=== PATIENT | male | born 1970 | race Caucasian/White ===

== ENCOUNTER 2022-06-16 09:41 | Outpatient (REF) | payer MEDICAID, SELFPAY ==
--- NOTE | ~2022-06-16 | XR_ITS ---
EXAMINATION: XR CHEST CLINICAL INFORMATION: Cough and shortness of breath COMPARISON: None TECHNIQUE: 2 views of the chest were obtained. FINDINGS: The cardiac and mediastinal contours are normal. The lungs are clear. There is no pleural effusion or pneumothorax. Bony structures are unremarkable. XR/XR chest 2V IMPRESSION: Unremarkable examination.
== END 2022-06-16 09:42 | disposition home or self-care (01) ==
LOC: HO.XRAY 09:41
PROVIDERS: PCP Internal Medicine; Visit Provider Internal Medicine
DX: M79.89 Other specified soft tissue disorders (principal)
CPT/HCPCS: 71046

== ENCOUNTER 2024-08-15 10:24 | Outpatient (REF) | payer MEDICAID, SELFPAY ==
[2024-08-15 14:41] LABS: Anion Gap 11 (12-20); Blood Urea Nitrogen 12 mg/dL (9-16); Calcium 9.6 mg/dL (8.4-10.2); Carbon Dioxide 31 mmol/L (22-29); Chloride 97 mmol/L (96-108); Estimated Glomerular Filt Rate > 60; Glucose Random 213 mg/dL (60-115); Sodium 134 mmol/L (135-145)
== END 2024-08-15 10:25 | disposition home or self-care (01) ==
LOC: HO.CHCLDS 10:24
PROVIDERS: Visit Provider Internal Medicine
DX: E11.40 Type 2 diabetes mellitus with diabetic neuropathy, unspecified (principal); Z79.4 Long term (current) use of insulin
CPT/HCPCS: 36415; 80048

== ENCOUNTER 2024-08-27 10:12 | Outpatient (REF) | payer MEDICAID, SELFPAY ==
[2024-08-27 14:43] LABS: Alanine Aminotransferase 20 U/L (0-40); Albumin Level 3.4 g/dL (3.5-5.0); Alkaline Phosphatase 94 U/L (39-117); Anion Gap 8 (12-20); Aspartate Amino Transferase 37 U/L (5-37); Bilirubin Total 0.3 mg/dL (0.0-1.0); Blood Urea Nitrogen 12 mg/dL (9-16); Carbon Dioxide 32 mmol/L (22-29); Chloride 97 mmol/L (96-108); Estimated Glomerular Filt Rate > 60; Glucose Random 210 mg/dL (60-115); Sodium 132 mmol/L (135-145); Total Protein 8.2 g/dL (6.5-8.0)
--- OUTSIDE RECORDS SUMMARY | 2024-08-27 14:48 | XMS_ITS | Clinical Summary ---
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 (CMS/HCC) PROTEIN AND CREATININE WITH RATIO, URINE Routine 06/12/2024 10:43 AM EST Hepatocellular carcinoma (CMS/HCC) from Last 3 Months Results * (ABNORMAL) CBC auto differential (08/15/2024 1:24 PM EST) Only the most recent of10 resultswithin the time period is included. WBC 8.1 4.8 - 10.8 K/mcL LAB HEMETOLOGY METHOD 08/15/2024 1:53 PM [facility] RBC 5.10 4.50 - 5.50 M/mcL LAB HEMETOLOGY METHOD 08/15/2024 1:53 PM [facility] Hemoglobin 11.0(L) 13.5 - 17.5 g/dL LAB HEMETOLOGY METHOD 08/15/2024 1:53 PM [facility] Hematocrit 38.0(L) 42.0 - 54.0 % LAB HEMETOLOGY METHOD 08/15/2024 1:53 PM [facility] MCV 75.1(L) 79.0 - 98.0 FL LAB HEMETOLOGY METHOD 08/15/2024 1:53 PM [facility] MCH 21.7(L) 27.0 - 32.0 pcg LAB HEMETOLOGY METHOD 08/15/2024 1:53 PM [facility] MCHC 28.9(L) 32.0 - 37.0 g/dL LAB HEMETOLOGY METHOD 08/15/2024 1:53 PM [facility] RDW 17.1(H) 11.0 - 15.0 % LAB HEMETOLOGY METHOD 08/15/2024 1:53 PM [facility] Platelets 283 130 - 400 K/mcL LAB HEMETOLOGY METHOD 08/15/2024 1:53 PM [facility] MPV 9.7 7.0 - 11.0 FL LAB HEMETOLOGY METHOD 08/15/2024 1:53 PM [facility] NRBC 0.0 <1.0 % LAB HEMETOLOGY METHOD 08/15/2024 1:53 PM [facility] NRBC Absolute 0.00 <0.10 K/mcL LAB HEMETOLOGY METHOD 08/15/2024 1:53 PM [facility] Neutrophils Relative 67.9 % LAB HEMETOLOGY METHOD 08/15/2024 1:53 PM [facility] Lymphocytes Relative 13.7 % LAB HEMETOLOGY METHOD 08/15/2024 1:53 PM [facility] Monocytes Relative 12.0 % LAB HEMETOLOGY METHOD 08/15/2024 1:53 PM [facility] Eosinophils Relative 5.2 % LAB HEMETOLOGY METHOD 08/15/2024 1:53 PM [facility] Basophils Relative 0.6 % LAB HEMETOLOGY METHOD 08/15/2024 1:53 PM [facility] Immature Granulocytes Relative 0.6 % LAB HEMETOLOGY METHOD 08/15/2024 1:53 PM [facility] Neutrophils Absolute 5.49 1.50 - 7.00 K/mcL LAB HEMETOLOGY METHOD 08/15/2024 1:53 PM [facility] Lymphocytes Absolute 1.11 1.00 - 5.00 K/mcL LAB HEMETOLOGY METHOD 08/15/2024 1:53 PM [facility] Monocytes Absolute 0.97 0.20 - 1.00 K/mcL LAB HEMETOLOGY METHOD 08/15/2024 1:53 PM EST [facility] Eosinophils Absolute 0.42 0.00 - 0.50 K/[facility] LAB HEMETOLOGY METHOD 08/15/2024 1:53 PM EST [facility] Basophils Absolute 0.05 0.00 - 0.20 K/[facility] LAB HEMETOLOGY METHOD 08/15/2024 1:53 PM EST [facility] Immature Granulocytes Absolute 0.05(H) 0.00 - 0.03 K/[facility] LAB HEMETOLOGY METHOD 08/15/2024 1:53 PM EST [facility] Blood Blood sample taken from central line / Unknown Venipuncture / Unknown 08/15/2024 1:24 PM EST 08/15/2024 1:41 PM EST Subblake Goldstein MD LAB BLOOD O JATINDER Performing Organization Address City/[facility]/ZIP Co de Phone Number [facility] [address] [place] [address], [place] [phone] * (ABNORMAL) TSH (08/15/2024 1:24 PM EST) Only the most recent of3 resultswithin the time period is included. TSH 7.75(H) 0.40 - 4.00 mcIU/mL LAB CHEMISTRY METHOD 08/15/2024 2:19 PM EST [facility] Blood Blood sample taken from central line / Unknown Venipuncture / Unknown 08/15/2024 1:24 PM EST 08/15/2024 1:41 PM EST Subramyenni Goldstein MD LAB BLOOD O RDERAYVONNE [facility] [address] [place] [address], [place] [phone] * Thyroxine free (08/15/2024 1:24 PM EST) Only the most recent of2 resultswithin the time period is included. Free T4 0.86 0.70 - 1.80 ng/dL LAB CHEMISTRY METHOD 08/15/2024 2:18 PM [facility] Blood Blood sample taken from central line / Unknown Venipuncture / Unknown 08/15/2024 1:24 PM EST 08/15/2024 1:41 PM EST Adal Goldstein MD LAB BLOOD O RDERABLES [facility] [address] [place] [address], * (ABNORMAL) Comprehensive metabolic panel (08/15/2024 1:24 PM EST) Only the most recent of4 resultswithin the time period is included. Sodium 131(L) 133 - 145 mmol/L LAB CHEMISTRY METHOD 08/15/2024 2:21 PM [facility] Potassium 4.9 3.5 - 5.5 mmol/L LAB CHEMISTRY METHOD 08/15/2024 2:21 PM [facility] Chloride 96 96 - 110 mmol/L LAB CHEMISTRY METHOD 08/15/2024 2:21 PM [facility] CO2 32 21 - 32 mmol/L LAB CHEMISTRY METHOD 08/15/2024 2:21 PM [facility] Anion Gap 3 3 - 11 LAB CHEMISTRY METHOD 08/15/2024 2:21 PM [facility] Glucose 321(H) 70 - 100 mg/dL LAB CHEMISTRY METHOD 08/15/2024 2:21 PM [facility] BUN 13 5 - 25 mg/dL LAB CHEMISTRY METHOD 08/15/2024 2:21 PM [facility] Creatinine 0.71 0.70 - 1.30 mg/dL LAB CHEMISTRY METHOD 08/15/2024 2:21 PM [facility] eGFR 108 >=60 mL/min/1. 73m2 LAB CHEMISTRY METHOD 08/15/2024 2:21 PM [facility] Comment:Calculation based on the??Chronic Kidney Disease Epidemiology Collaboration (CKD-EPI) equation refit??without adjustment for race. BUN/Creatinine Ratio 18.3 LAB CHEMISTRY METHOD 08/15/2024 2:21 PM [facility] Calcium 8.7 8.5 - 10.5 mg/dL LAB CHEMISTRY METHOD 08/15/2024 2:21 PM [facility] AST (SGOT) 34 10 - 42 unit/L LAB CHEMISTRY METHOD 08/15/2024 2:21 PM [facility] ALT (SGPT) 36 10 - 60 unit/L LAB CHEMISTRY METHOD 08/15/2024 2:21 PM [facility] Alkaline Phosphatase 111 42 - 121 unit/L LAB CHEMISTRY METHOD 08/15/2024 2:21 PM [facility] Total Protein 7.1 6.0 - 8.0 g/dL LAB CHEMISTRY METHOD 08/15/2024 2:21 PM [facility] Albumin 2.7(L) 3.2 - 5.0 g/dL LAB CHEMISTRY METHOD 08/15/2024 2:21 PM [facility] Total Bilirubin 0.3 0.0 - 1.4 mg/dL LAB CHEMISTRY METHOD 08/15/2024 2:21 PM [facility] Blood Blood sample taken from central line / Unknown Venipuncture / Unknown 08/15/2024 1:24 PM EST 08/15/2024 1:41 PM EST Adal Goldstein MD LAB BLOOD O RDERABLES [facility] [address] [place] [address], * (ABNORMAL) POCT Glucose, blood (08/06/2024 11:08 AM EST) Only the most recent of36 resultswithin the time period is included. Glucose POCT 233(H) 70 - 100 mg/dL 08/06/2024 11:08 AM EST [facility] Blood Capillary blood specimen / Unknown 08/06/2024 11:08 AM EST 08/06/2024 11:10 AM EST Ruddy Carrero MD LAB POINT OF CA RE TEST DOCKED DEVICE UNSOLICITED RESULTS Performing Organization Address City/[facility]/ZIP Co de Phone Number [facility] [address] [place] [address], [place] [phone] * Lavender tube (08/06/2024 6:23 AM EST) Only the most recent of4 resultswithin the time period is included. Extra Tube Hold for add-ons. 08/06/2024 9:01 AM EST [facility] Comment:Auto resulted. Blood Venous blood specimen / Unknown Venipuncture / Unknown 08/06/2024 6:23 AM EST 08/06/2024 7:07 AM EST Ruddy Carrero MD LAB BLOOD ORDER ABDIEL [facility] [address] [place] [address], [place] [phone] * Magnesium (08/06/2024 6:23 AM EST) Only the most recent of6 resultswithin the time period is included. Magnesium 1.9 1.9 - 2.6 mg/dL LAB CHEMISTRY METHOD 08/06/2024 7:49 AM EST [facility] Blood Venous blood specimen / Unknown Venipuncture / Unknown 08/06/2024 6:23 AM EST 08/06/2024 7:04 AM EST Junior Billings MD LAB BLOOD ORDERABLES [facility] [address] [place] [address], * (ABNORMAL) Basic metabolic panel (08/06/2024 6:23 AM EST) Only the most recent of10 resultswithin the time period is included. Sodium 131(L) 133 - 145 mmol/L LAB CHEMISTRY METHOD 08/06/2024 7:49 AM [facility] Potassium 4.5 3.5 - 5.5 mmol/L LAB CHEMISTRY METHOD 08/06/2024 7:49 AM [facility] Chloride 93(L) 96 - 110 mmol/L LAB CHEMISTRY METHOD 08/06/2024 7:49 AM [facility] CO2 35(H) 21 - 32 mmol/L LAB CHEMISTRY METHOD 08/06/2024 7:49 AM [facility] Anion Gap 3 3 - 11 LAB CHEMISTRY METHOD 08/06/2024 7:49 AM [facility] Glucose 98 70 - 100 mg/dL LAB CHEMISTRY METHOD 08/06/2024 7:49 AM [facility] BUN 14 5 - 25 mg/dL LAB CHEMISTRY METHOD 08/06/2024 7:49 AM [facility] Creatinine 0.84 0.70 - 1.30 mg/dL LAB CHEMISTRY METHOD 08/06/2024 7:49 AM [facility] eGFR 103 >=60 mL/min/1. 73m2 LAB CHEMISTRY METHOD 08/06/2024 7:49 AM [facility] Comment:Calculation based on the??Chronic Kidney Disease Epidemiology Collaboration (CKD-EPI) equation refit??without adjustment for race. BUN/Creatinine Ratio 16.7 LAB CHEMISTRY METHOD 08/06/2024 7:49 AM [facility] Calcium 9.1 8.5 - 10.5 mg/dL LAB CHEMISTRY METHOD 08/06/2024 7:49 AM EST [facility] Blood Venous blood specimen / Unknown Venipuncture / Unknown 08/06/2024 6:23 AM EST 08/06/2024 7:04 AM EST Junior Billings MD LAB BLOOD ORDERABLES [facility] [address] [place] [address], * IR Repair CVAD w Subq Port or Pump (08/03/2024 6:18 PM EST) Anatomical Region Laterality Modality Interventional R adiology 08/03/2024 6:43 PM EST Narrative 08/03/2024 6:50 PM EST Attempted port revision Indication: Malpositioned right IJ port. ??Right IJ port is noted looped in the right neck. Fluoroscopic time: 15.1 minutes Informed written consent was obtained prior to the procedure. ??A aerial tram operator image of the right neck was obtained demonstrating redundant looping of the right IJ catheter. The right groin was prepped and draped in usual sterile fashion. ??Utilizing micropuncture technique access was obtained into the right common femoral vein. ??A wire was advanced centrally. ??A 6-Israeli sheath was then advanced over the wire. ??Utilizing combination of 0.035 wires including a Mullins and Amplatz wires and angled 5-Israeli Kumpe catheter and 5-Israeli Brandi catheter multiple times were made to loop the catheters over the redundancy of the tubing and pull it into the superior vena cava. ??This was unsuccessful. ??Therefore a gooseneck snare was then advanced and the tip of the catheter was secured. ??The distal redundant loop could not be fully reduced, despite multiple attempts. ??The tip of the catheter was positioned at the IJ subclavian junction likely in the very upper portion of the superior vena cava. The port was accessed and contrast injection demonstrates patency of the port although blood return was not noted. I then advanced the catheter back into the right IJ and additional contrast injection was performed demonstrating patency of the internal jugular vein. ??However the distal redundant loop appears to be extravascular. The sheath and catheters were removed and hemostasis was achieved. ??The port was flushed with heparinized saline and Deaccessed. Impression/plan: 1. ??Malpositioned right IJ port with distal loop redundancy likely extravascular. ??The tip remains intravascular and could be used if clinically necessary. 2. ??Ultimately, formal port resection and replacement is advised. ??This can be scheduled on an outpatient basis. 3. ??Right IJ and superior vena cava venogram 4. ??Mechanical snaring of an intravascular device with tip repositioning. -------- FINAL REPORT -------- Dictated By: Gerson Alvarez Dictated Date: 08/03/2024 18:43 ET Assigned Physician: Gerson Alvarez Reviewed and Electronically Signed By: Gerson Alvarez Signed Date: 08/03/2024 18:50 ET Workstation ID: [id number] Transcribed By: Self Edit Transcribed Date: 08/03/2024 18:43 ET Procedure Note Gerson Alvarez MD - 08/03/2024 Attempted port revision Indication: Malpositioned right IJ port. Right IJ port is noted looped inthe right neck. Fluoroscopic time: 15.1 minutes Informed written consent was obtained prior to the procedure. A scoutimage of the right neck was obtained demonstrating redundant looping ofthe right IJ catheter. The right groin was prepped and draped in usual sterile fashion.Utilizing micropuncture technique access was obtained into the rightcommon femoral vein. A wire was advanced centrally. A 6-Israeli sheathwas then advanced over the wire. Utilizing combination of 0.035 wiresincluding a Mullins and Amplatz wires and angled 5- Israeli Kumpe catheter and5-Israeli Brandi catheter multiple times were made to loop the cathetersover the redundancy of the tubing and pull it into the superior vena cava.This was unsuccessful. Therefore a gooseneck snare was then advanced andthe tip of the catheter was secured. The distal redundant loop could notbe fully reduced, despite multiple attempts. The tip of the catheter waspositioned at the IJ subclavian junction likely in the very upper portionof the superior vena cava. The port was accessed and contrast injection demonstrates patency of theport although blood return was not noted. I then advanced the catheter back into the right IJ and additionalcontrast injection was performed demonstrating patency of the internaljugular vein. However the distal redundant loop appears to beextravascular. The sheath and catheters were removed and hemostasis was achieved. Theport was flushed with heparinized saline and Deaccessed. Impression/plan: 1. Malpositioned right IJ port with distal loop redundancy likelyextravascular. The tip remains intravascular and could be used ifclinically necessary. 2. Ultimately, formal port resection and replacement is advised. Thiscan be scheduled on an outpatient basis. 3. Right IJ and superior vena cava venogram 4. Mechanical snaring of an intravascular device with tiprepositioning. -------- FINAL REPORT -------- Dictated By: Gerosn Alvarez Dictated Date: 08/03/2024 18:43 ET Assigned Physician: Gerson Alvarez Reviewed and Electronically Signed By: Gerson Alvarez Signed Date: 08/03/2024 18:50 ET Workstation ID: [id number] Transcribed By: Self Edit Transcribed Date: 08/03/2024 18:43 ET Gerson Alvarez MD IMG IR PROCEDURES * IR Asp Abscess/Hematoma/Bulla/Cyst (08/02/2024 10:24 AM EST) Anatomical Region Laterality Modality Body N/A Interventional R adiology 08/02/2024 10:2 8 AM EST Impressions 08/02/2024 10:[address]-guided aspiration of a suspected abscess in the upper aspect of the liver. ??Aspiration attempt yielded no return of any fluid or pus. ??This is therefore likely hepatic tumor given the underlying history of hepatocellular carcinoma. ??This is not indicative of abscess at this time. -------- FINAL REPORT -------- Dictated By: Gerson Alvarez Dictated Date: 08/02/2024 10:28 ET Assigned Physician: Gerson Alvarez Reviewed and Electronically Signed By: Gerson Alvarez Signed Date: 08/02/2024 10:35 ET Workstation ID: [id number] Transcribed By: Self Edit Transcribed Date: 08/02/2024 10:28 ET Narrative 08/02/2024 10:[address]-guided drainage INDICATION: Patient with metastatic disease to the liver with concern for development of hepatic abscess. Interventionalists: Dr. Gerson Alvarez Procedure: Informed consent was obtained prior to the procedure. Prior imaging studies were reviewed. The patient was placed in supine position on the imaging table with an overlying marking grid. An initial guiding scan was performed through the area of concern. After identifying the most appropriate access, the overlying skin was demarcated. The skin was then prepped and draped in the usual and sterile fashion. A timeout was performed as per institutional guidelines. Moderate sedation: Under direct physician supervision, the patient was moderately sedated with ??100 mcg FENTANYL and 2.0 mg VERSED IV for a total of 30 minutes. An independent interventional radiology nurse observer trained in conscious sedation provided continuous physiologic monitoring of the patient during the entirety of the procedure through recovery. 2% lidocaine was used for skin anesthesia. A small stab incision was made with an 11 blade scalpel. ??No styloid and 18-gauge needles were available for aspiration attempt. ??Therefore a micropuncture kit was utilized to access the area of concern under continuous CT fluoroscopic guidance. ??Advancement of the needle was challenging due to the firmness of the area in question. ??A mandrel wire was attempted to be coiled within any potential cavity, however the wire would not coil indicating positioning within solid liver/mass. ??Aspiration attempt yielded no return of any fluid or purulence. The catheter was secured to the skin with Steri-Strips and a sterile dressing was applied. The patient tolerated the procedure with no immediate complications. The patient was returned ultimately to their unit in unchanged condition. Imaging was utilized only to facilitate drainage, please see the separately dictated diagnostic study performed earlier for anatomic detail. Procedure Note Gerson Alvarez MD - 08/02/2024 CT-guided drainage INDICATION: Patient with metastatic disease to the liver with concern fordevelopment of hepatic abscess. Interventionalists: Dr. Gerson Alvarez Procedure: Informed consent was obtained prior to the procedure. Priorimaging studies were reviewed. The patient was placed in supine positionon the imaging table with an overlying marking grid. An initial guidingscan was performed through the area of concern. After identifying the mostappropriate access, the overlying skin was demarcated. The skin was thenprepped and draped in the usual and sterile fashion. A timeout was performed as per institutional guidelines. Moderate sedation: Under direct physician supervision, the patient wasmoderately sedated with 100 mcg FENTANYL and 2.0 mg VERSED IV for a totalof 30 minutes. An independent interventional radiology nurse observertrained in conscious sedation provided continuous physiologic monitoringof the patient during the entirety of the procedure through recovery. 2% lidocaine was used for skin anesthesia. A small stab incision was madewith an 11 blade scalpel. No styloid and 18-gauge needles were availablefor aspiration attempt. Therefore a micropuncture kit was utilized toaccess the area of concern under continuous CT fluoroscopic guidance.Advancement of the needle was challenging due to the firmness of the areain question. A mandrel wire was attempted to be coiled within anypotential cavity, however the wire would not coil indicating positioningwithin solid liver/mass. Aspiration attempt yielded no return of anyfluid or purulence. The catheter was secured to the skin with Steri-Strips and a steriledressing was applied. The patient tolerated the procedure with no immediate complications. Thepatient was returned ultimately to their unit in unchanged condition. Imaging was utilized only to facilitate drainage, please see theseparately dictated diagnostic study performed earlier for anatomicdetail. IMPRESSION: CT-guided aspiration of a suspected abscess in the upper aspect of theliver. Aspiration attempt yielded no return of any fluid or pus. This istherefore likely hepatic tumor given the underlying history ofhepatocellular carcinoma. This is not indicative of abscess at thistime. -------- FINAL REPORT -------- Dictated By: Gerson Alvarez Dictated Date: 08/02/2024 10:28 ET Assigned Physician: Gerson Alvarez Reviewed and Electronically Signed By: Gerson Alvarez Signed Date: 08/02/2024 10:35 ET Workstation ID: [id number] Transcribed By: Self Edit Transcribed Date: 08/02/2024 10:28 ET Ruddy CALLEG IR LEONARD ES * Phosphorus (08/02/2024 7:56 AM EST) Phosphorus 3.6 2.5 - 4.5 mg/dL LAB CHEMISTRY METHOD 08/02/2024 8:37 AM EST [facility] Blood Venous blood specimen / Unknown Venipuncture / Unknown 08/02/2024 7:56 AM EST 08/02/2024 8:02 AM EST Ruddy Carrero MD LAB BLOOD ORDER ABDIEL Performing Organization Address City/[facility]/ZIP Co de Phone Number [facility] [address] [place] [address], [place] [phone] * (ABNORMAL) Prothrombin time with INR (08/01/2024 4:46 PM EST) Protime 15.2(H) 10.6 - 13.9 sec LAB COAGULATION METHOD 08/01/2024 5:24 PM EST [facility] INR 1.2 LAB COAGULATION METHOD 08/01/2024 5:24 PM EST [facility] Blood Venous blood specimen / Unknown Venipuncture / Unknown 08/01/2024 4:46 PM EST 08/01/2024 5:05 PM EST Ruddy Carrero MD LAB BLOOD ORDER ABDIEL Performing Organization Address City/[facility]/ZIP Co de Phone Number [facility] [address] [place] [address], [place] [phone] * (ABNORMAL) Alpha fetoprotein tumor marker (07/31/2024 7:51 AM EST) AFP 862.8(H) 0.0 - 8.0 ng/mL LAB CHEMISTRY METHOD 08/01/2024 12:42 PM EST [facility] Blood Venous blood specimen / Unknown Venipuncture / Unknown 07/31/2024 7:51 AM EST 07/31/2024 7:59 AM EST Narrative [facility] - 08/01/2024 12:42 PM EST The Siemens Advia Centaur Chemiluminescent Immunoassay is used. Results obtained with different assay methods or kits cannot be used interchangeably. Results cannot be interpreted as absolute evidence of the presence or absence of malignant disease. Adal Goldstein MD LAB BLOOD O RDERABLES Performing Organization Address [facility]/ZIP Co de Phone Number [facility] [address] [place] [address], * B-type natriuretic peptide (07/31/2024 7:51 AM EST) BNP 89 <=100 pcg/mL LAB CHEMISTRY METHOD 07/31/2024 8:42 AM EST [facility] Blood Venous blood specimen / Unknown Venipuncture / Unknown 07/31/2024 7:51 AM EST 07/31/2024 7:59 AM EST Ruddy Carrero MD LAB BLOOD ORDER ABDIEL Performing Organization Address [facility]/ZIP Co de Phone Number [facility] [address] [place] [address], [place] [phone] * (ABNORMAL) TRANSTHORACIC ECHOCARDIOGRAM (TTE) COMPLETE W/ CONTRAST (07/30/2024 11:15 AM EST) Left Atrium Minor [place] 5.9 cm CV PACS Left Atrium Major [place] 6.0 cm CV PACS LA Area Sys (A2C) 20 cm2 CV PACS LA Area Sys (A4C) 22 cm2 CV PACS LA Volume (BP) 58 mL CV PACS RA Area 19.4 cm2 CV PACS RA 2D Volume 59 mL CV PACS Aortic Sinus Valsalva 3.7 cm CV PACS Ascending Aorta 3.1 cm CV PACS LVOT Diameter 2.3 cm CV PACS MV E' Tissue Velocity Lateral 13 cm/s CV PACS MV E' Tissue Velocity Septal 11 cm/s CV PACS LVOT Area 4.2 cm2 CV PACS MV Deceleration [place] 4.0 m/s2 CV PACS E Wave Deceleration Time 244(A) 119 - 242 ms CV PACS MV PHT 72 ms CV PACS MV Peak A Joe 0.62 m/s CV PACS MV Peak E Joe 0.96 m/s CV PACS MV Area PHT 3.1 cm2 CV PACS RV Diastolic Basal Dimension 3.1 2.5 - 4.1 cm CV PACS RV S' 12 cm/s CV PACS TAPSE 20 mm CV PACS E/E' Ratio Septal 9 CV PACS E/E' Ratio Averaged 8 CV PACS E/A Ratio 1.5 CV PACS E/E' Ratio Lateral 7 CV PACS LA Volume Index (BP) 16 mL/m2 CV PACS RA 2D Volume Index 16(A) 18 - 32 mL/m2 CV PACS Ascending Aorta Index 0.83 cm/m2 CV PACS Anatomical Region Laterality Modality Ultrasound Narrative 07/30/2024 12:06 PM EST ?Left ventricle was not well visualized. Wall thickness was not well visualized. Systolic function is normal with an ejection fraction of 60-65%. There is a septal bounce present with otherwise normal wall motion. There is no diastolic dysfunction. ?Right ventricle cavity is normal. Right ventricular systolic function is normal. ?The atria are normal in size. ?No hemodynamically significant valve disease. ?See remainder of the report for additional findings. Left Ventricle Left ventricle was not well visualized. Wall thickness was not well visualized. Systolic function is normal with an ejection fraction of 60-65%. There is a septal bounce present with otherwise normal wall motion. There is no diastolic dysfunction. Right Ventricle Right ventricle cavity appears normal. Systolic function is normal. Left Atrium Left atrium volume index is normal. Right Atrium Right atrium cavity is normal. IVC/SVC Inferior vena cava was not well visualized. Mitral Valve The leaflets are mildly thickened. There is trace regurgitation. There is no evidence of mitral valve stenosis. Tricuspid Valve The leaflets exhibit normal excursion. There is trace regurgitation. Cannot assess RVSP. Aortic Valve The aortic valve leaflets were not well visualized. The leaflets exhibit normal excursion. There is no regurgitation or stenosis. Pulmonic Valve The pulmonic valve was not well visualized. Normal function by Doppler assessment. Ascending Aorta The aorta appears normal in size. Pericardium Pericardium appears normal. Study Details Overall the study quality was technically difficult. Definity contrast was given to enhance imaging. Study was difficult due to: patient body habitus. Vitaliy Cantu MD CV ECHO PROCEDURES * XR Chest 2 Views (07/30/2024 8:44 AM EST) Only the most recent of2 resultswithin the time period is included. Anatomical Region Laterality Modality Body Radiographic Kera ging 07/30/2024 9:04 AM EST Impressions 07/30/2024 9:08 AM EST Impression: 1. Malpositioned right Port-A-Cath, similar to the previous study, but a change from the insertion procedure imaging from 12/05/23. 2. No active pulmonary process. Telerad PA ([id number]) -------- FINAL REPORT -------- Dictated By: Kimberley Becerra Dictated Date: 07/30/2024 09:04 ET Assigned Physician: Kimberley Becerra Reviewed and Electronically Signed By: Kimberley Becerra Signed Date: 07/30/2024 09:08 ET Workstation ID: [id number] Transcribed By: Self Edit Transcribed Date: 07/30/2024 09:04 ET Narrative 07/30/2024 9:08 AM EST History: Anasarca. Metastatic hepatocellular carcinoma. Comparison: 06/18/24 Findings: PA and lateral views. The cardiac silhouette remains borderline enlarged. Hilar contours and pulmonary vascularity are within normal limits. A Port-A-Cath is seen on the right, malpositioned, the catheter extending into the neck, presumably within the internal jugular vein, and looping back upon itself to terminate in the lower neck, similar to the previous chest radiograph. The lungs are clear. The costophrenic angle is are sharp. The regional skeleton appears intact. Procedure Note Kimberley Becerra MD - 07/30/2024 History: Anasarca. Metastatic hepatocellular carcinoma. Comparison: 06/18/24 Findings: PA and lateral views. The cardiac silhouette remains borderline enlarged.Hilar contours and pulmonary vascularity are within normal limits. A Port-A-Cath is seen on the right, malpositioned, the catheter extendinginto the neck, presumably within the internal jugular vein, and loopingback upon itself to terminate in the lower neck, similar to the previouschest radiograph. The lungs are clear. The costophrenic angle is are sharp. The regional skeleton appears intact. IMPRESSION: Impression: 1. Malpositioned right Port-A-Cath, similar to the previous study, but achange from the insertion procedure imaging from 12/05/23. 2. No active pulmonary process. Telerad PA ([id number]) -------- FINAL REPORT -------- Dictated By: Kimberley Becerra Dictated Date: 07/30/2024 09:04 ET Assigned Physician: Kimberley Becerra Reviewed and Electronically Signed By: Kimberley Becerra Signed Date: 07/30/2024 09:08 ET Workstation ID: [id number] Transcribed By: Self Edit Transcribed Date: 07/30/2024 09:04 ET Vitaliy Cantu MD IMG XR PROCEDURES * Vascular US duplex lower extremity venous bilateral (07/30/2024 8:35 AM EST) Anatomical Region Laterality Modality Vascular, Abdomen Ultrasound 07/30/2024 8:55 AM EST Impressions 07/30/2024 8:55 AM EST Impression: No evidence of deep vein thrombosis in the femoral-popliteal venous segments of both lower extremities. [id number] -------- FINAL REPORT -------- Dictated By: Kimberley Becerra Dictated Date: 07/30/2024 08:55 ET Assigned Physician: Kimberley Becerar Reviewed and Electronically Signed By: Kimberley Becerra Signed Date: 07/30/2024 08:55 ET Workstation ID: [id number] Transcribed By: Self Edit Transcribed Date: 07/30/2024 08:55 ET Narrative 07/30/2024 8:55 AM EST History: Bilateral lower extremity swelling. Findings: Duplex and color Doppler imaging of the deep venous system of both lower extremities was performed from the inguinal ligaments to the popliteal fossa. The common femoral, femoral and popliteal veins are patent and compress completely. Spontaneous and phasic venous flow is demonstrated with Doppler. There is normal flow augmentation with calf compression bilaterally. The deep calf veins, as visualized, are compressible. The venous waveforms are pulsatile, suggesting underlying right heart failure and/or tricuspid regurgitation. Procedure Note Kimberley Becerra MD - 07/30/2024 History: Bilateral lower extremity swelling. Findings: Duplex and color Doppler imaging of the deep venous system of both lowerextremities was performed from the inguinal ligaments to the poplitealfossa. The common femoral, femoral and popliteal veins are patent andcompress completely. Spontaneous and phasic venous flow is demonstratedwith Doppler. There is normal flow augmentation with calf compressionbilaterally. The deep calf veins, as visualized, are compressible. The venous waveforms are pulsatile, suggesting underlying right heartfailure and/or tricuspid regurgitation. IMPRESSION: Impression: No evidence of deep vein thrombosis in the femoral-popliteal venoussegments of both lower extremities. [id number] -------- FINAL REPORT -------- Dictated By: Kimberley Becerra Dictated Date: 07/30/2024 08:55 ET Assigned Physician: Kimberley Becerra Reviewed and Electronically Signed By: Kimberley Becerra Signed Date: 07/30/2024 08:55 ET Workstation ID: [id number] Transcribed By: Self Edit Transcribed Date: 07/30/2024 08:55 ET Vitaliy Cantu MD CV VASCULAR PROCEDUR ES * CT Abdomen Pelvis w Contrast (07/30/2024 3:53 AM EST) Only the most recent of2 resultswithin the time period is included. Anatomical Region Laterality Modality Body Computed Tomogra phy 07/30/2024 5:34 AM EST Addenda Addendum by Foreign Pickens MD on 07/30/2024 5:52 AM EST ADDENDUM: Receipt of this report by the clinical staff was confirmed with ARTURO Elliott on Jul 30, 2024 05:52:00 EST. This document has been electronically signed by: Yamilka Franco on 07/30/2024 05:52:59 Impressions 07/30/2024 5:34 AM EST Impression: There is an irregular low-density peripherally enhancing lesion within the hepatic dome most consistent with abscess. Malignancy less likely but possible. Anasarca and severe scrotal thickening. Diverticulosis without diverticulitis. This document has been electronically signed by: Foreign Pickens MD on 07/30/2024 05:34:55 Narrative 07/30/2024 5:[address] abdomen and pelvis with contrast Comparison: None Findings: No consolidation or effusion. There is a low-density liver mass near the hepatic dome, axial 37 and coronal 44, measuring up to 6.9 x 6.3 x 5.3 cm this exhibits somewhat irregular peripheral enhancement. No central gas. The gallbladder is surgically absent. The spleen, adrenal glands and pancreas are unremarkable. Kidneys demonstrate tiny low-density lesions, too small to characterize. The bladder is decompressed. No bowel obstruction. There is diverticulosis. Diffuse anasarca present. Severe scrotal edema/thickening. Procedure Note Foreign Pickens MD - 07/30/2024 CT abdomen and pelvis with contrast Comparison: None Findings: No consolidation or effusion. There is a low-density liver mass near the hepatic dome, axial 37 and coronal 44, measuring up to 6.9 x 6.3 x 5.3 cm this exhibits somewhat irregular peripheral enhancement. No central gas. The gallbladder is surgically absent. The spleen, adrenal glands and pancreas are unremarkable. Kidneys demonstrate tiny low-density lesions, too small to characterize. The bladder is decompressed. No bowel obstruction. There is diverticulosis. Diffuse anasarca present. Severe scrotal edema/thickening. IMPRESSION: Impression: There is an irregular low-density peripherally enhancing lesion withinthe hepatic dome most consistent with abscess. Malignancy less likely but possible. Anasarca and severe scrotal thickening. Diverticulosis without diverticulitis. This document has been electronically signed by: Foreign Pickens MD on 07/30/2024 05:34:55 Edwar RICH [facility] [place] [facility] PROCEDURES * Blood Culture, Peripheral #1 (07/30/2024 3:10 AM EST) Only the most recent of2 resultswithin the time period is included. Culture, Blood No growth at 5 days LAB MICROBIOLOGY METHOD 08/04/2024 6:01 AM EST [facility] Blood Venous blood specimen / Unknown Venipuncture / Unknown 07/30/2024 3:10 AM EST 07/30/2024 3:30 AM EST Edwar RICH LAB MICROBIOLOGY - G ENERAL ORDERABLES [facility] ([facility] [address] [place] [address], [place] [phone] * US Scrotum and Contents (07/29/2024 7:48 PM EST) Only the most recent of2 resultswithin the time period is included. Anatomical Region Laterality Modality Body Ultrasound 07/29/2024 8:10 PM EST Impressions 07/29/2024 8:10 PM EST Diffuse bilateral scrotal wall thickening and edema. Small bilateral hydroceles. Testicles and epididymis are within normal limits. This document has been electronically signed by: Kristie Turpin MD on 07/29/2024 20:10:05 Narrative 07/29/2024 8:10 PM EST US Scrotum with Doppler Comparison: None Findings: Right testicle normal size and echotexture, 4.5 x 2.9 x 2.8 cm. Left testicle normal size and echotexture, 4.0 x 3.1 x 2.5 cm. Normal color flow and arterial/venous spectral tracing of both testicles. Normal epididymides. No varicoceles. Small bilateral hydroceles. Diffuse bilateral scrotal wall thickening and edema. Procedure Note Kristie Turpin MD - 07/29/2024 US Scrotum with Doppler Comparison: None Findings: Right testicle normal size and echotexture, 4.5 x 2.9 x 2.8 cm. Left testicle normal size and echotexture, 4.0 x 3.1 x 2.5 cm. Normal color flow and arterial/venous spectral tracing of bothtesticles. Normal epididymides. No varicoceles. Small bilateral hydroceles. Diffuse bilateral scrotal wall thickening and edema. IMPRESSION: Diffuse bilateral scrotal wall thickening and edema. Small bilateral hydroceles. Testicles and epididymis are within normal limits. This document has been electronically signed by: Kristie Turpin MD on 07/29/2024 20:10:05 Vitaliy Cantu MD IMG US PROCEDURES * (ABNORMAL) Urinalysis with reflex microscopic and culture (07/29/2024 6:58 PM EST) Only the most recent of2 resultswithin the time period is included. Specific [place] Urine 1.027 1.003 - 1.030 LAB URINALYSIS - AUTOMATED METHOD 07/29/2024 8:05 PM [facility] pH, Urine 6.5 5.0 - 8.0 pH LAB URINALYSIS - AUTOMATED METHOD 07/29/2024 8:05 PM [facility] Leukocytes, Urine Negative Negative LAB URINALYSIS - AUTOMATED METHOD 07/29/2024 8:05 PM [facility] Nitrite, Urine Negative Negative LAB URINALYSIS - AUTOMATED METHOD 07/29/2024 8:05 PM [facility] Protein, Urine 100(A) <=Trace mg/dL LAB URINALYSIS - AUTOMATED METHOD 07/29/2024 8:05 PM [facility] Glucose, Urine Negative Negative mg/dL LAB URINALYSIS - AUTOMATED METHOD 07/29/2024 8:05 PM [facility] Ketones, Urine Negative Negative mg/dL LAB URINALYSIS - AUTOMATED METHOD 07/29/2024 8:05 PM [facility] Urobilinogen, Urine 1.0 0.2 - 1.0 mg/dL LAB URINALYSIS - AUTOMATED METHOD 07/29/2024 8:05 PM [facility] Bilirubin, Urine Negative Negative LAB URINALYSIS - AUTOMATED METHOD 07/29/2024 8:05 PM [facility] Blood, Urine Negative Negative LAB URINALYSIS - AUTOMATED METHOD 07/29/2024 8:05 PM [facility] RBC, Urine 7.2(H) 0 - 4 /HPF LAB URINALYSIS - AUTOMATED METHOD 07/29/2024 8:05 PM [facility] WBC, Urine 1.7 0 - 4 /HPF LAB URINALYSIS - AUTOMATED METHOD 07/29/2024 8:05 PM [facility] Squamous Epithelial, Urine 30 0 - 60 /LPF LAB URINALYSIS - AUTOMATED METHOD 07/29/2024 8:05 PM [facility] Bacteria, Urine Negative Negative /HPF LAB URINALYSIS - AUTOMATED METHOD 07/29/2024 8:05 PM [facility] Hyaline Casts, Urine 0.8 0 - 3 /LPF LAB URINALYSIS - AUTOMATED METHOD 07/29/2024 8:05 PM [facility] Urine Urine specimen obtained by clean catch procedure / Unknown Non-blood Collection / Unknown 07/29/2024 6:58 PM EST 07/29/2024 7:56 PM EST Vitaliy Cantu MD LAB URINE ORDERABLES [facility] [address] [place] [address], [place] [phone] * Quintana urine culture tube (07/29/2024 6:58 PM EST) Only the most recent of2 resultswithin the time period is included. Extra Tube Hold for add-ons. 07/29/2024 9:01 PM [facility] Comment:Auto resulted. Urine Urine specimen obtained by clean catch procedure / Unknown Non-blood Collection / Unknown 07/29/2024 6:58 PM EST 07/29/2024 7:55 PM EST Vitaliy Cantu MD LAB URINE ORDERABLES [facility] [address] [place] [address], [place] [phone] * (ABNORMAL) C-reactive protein (07/29/2024 6:53 PM EST) Only the most recent of2 resultswithin the time period is included. [facility] C-Reactive Protein 1.11(H) <=0.50 mg/dL LAB CHEMISTRY METHOD 07/31/2024 12:52 AM EST [facility] Blood Venous blood specimen / Unknown Venipuncture / Unknown 07/29/2024 6:53 PM EST 07/29/2024 7:58 PM EST Vitaliy Cantu MD LAB BLOOD ORDERABLES [facility] [address] [place] [address], [place] [phone] * (ABNORMAL) Hemoglobin A1c (07/29/2024 6:53 PM EST) [facility] Hemoglobin A1C 8.2(H) <6.5 % LAB CHEMISTRY METHOD 07/30/2024 8:34 AM EST [facility] Mean Bld Glu Estim. 189 mg/dL LAB CHEMISTRY METHOD 07/30/2024 8:34 AM [facility] Blood Venous blood specimen / Unknown Venipuncture / Unknown 07/29/2024 6:53 PM EST 07/29/2024 7:58 PM EST Vitaliy Cantu MD LAB BLOOD ORDERABLES [facility] [address] [place] [address], [place] [phone] * (ABNORMAL) Protein and creatinine with ratio, urine (07/24/2024 10:50 AM EST) Only the most recent of3 resultswithin the time period is included. [facility] Protein, Urine 171 mg/dL LAB CHEMISTRY METHOD 07/24/2024 11:35 AM [facility] Prot/Creat, Ur 1.43(H) <=0.20 mg/mg creat LAB CHEMISTRY METHOD 07/24/2024 11:35 AM EST [facility] Creatinine, Urine 120.0 mg/dL LAB CHEMISTRY METHOD 07/24/2024 11:35 AM EST [facility] Urine Urine specimen obtained by clean catch procedure / Unknown Non-blood Collection / Unknown 07/24/2024 10:50 AM EST 07/24/2024 11:10 AM EST Adal Goldstein MD LAB URINE O RDERABLES Performing Organization Address [facility]/ZIP Co de Phone Number [facility] [address] [place] [address], [place] [phone] * Vancomycin, trough (06/21/2024 10:32 PM EST) Only the most recent of2 resultswithin the time period is included. [facility] Vancomycin Trough 10.8 10.0 - 20.0 mcg/mL LAB CHEMISTRY METHOD 06/21/2024 11:15 PM EST [facility] Blood Venous blood specimen / Unknown Venipuncture / Unknown 06/21/2024 10:32 PM EST 06/21/2024 10:40 PM EST Devonte RICH LAB BLOOD ORDERABLES Performing Organization Address [facility]/ZIP Co de Phone Number [facility] [address] [place] [address], [place] [phone] * MRSA molecular study (06/20/2024 12:08 PM EST) [facility] MRSA Screen PCR Not Detected Not Detected LAB MICROBIOLOGY METHOD 06/20/2024 2:43 PM EST [facility] Swab Both anterior nares / Unknown Non-blood Collection / Unknown 06/20/2024 12:08 PM EST 06/20/2024 12:17 PM EST Bridgette Correa MD LAB MICROBIOLOGY - G ENERAL ORDERABLES Performing Organization Address City/[facility]/ZIP Co de Phone Number [facility] [address] [place] [address], [place] [phone] * Hepatitis C virus quantitative molecular study (06/20/2024 10:31 AM EST) [facility] HCV Qual Interp Not Detected Not Detected LAB MOLECULAR DIAGNOSTICS METHOD 06/21/2024 10:42 AM EST [facility] Blood Venous blood specimen / Unknown Venipuncture / Unknown 06/20/2024 10:31 AM EST 06/20/2024 10:37 AM EST Ryan Rivera MD LAB BLOOD ORDERABLES Performing Organization Address [facility] Co de Phone Number [facility] [address] [place] [address], [place] [phone] * Cryoglobulin (06/20/2024 10:31 AM EST) [facility] Cryoglobulin Absent Absent 06/29/2024 1:58 PM EST [facility] Comment: Test performed at [facility], [address] , [place], [place] ??[address] ? [phone] Airam Parker MD, PhD - [employer]ic Blood Venous blood specimen / Unknown Venipuncture / Unknown 06/20/2024 10:31 AM EST 06/20/2024 10:37 AM EST Ryan Rivera MD LAB BLOOD ORDERABLES Performing Organization Address City/[facility]/ZIP Co de Phone Number [facility] [address] [place] [address] * Procalcitonin (06/18/2024 10:03 AM EST) [facility] Procalcitonin <0.02 <=0.16 ng/mL LAB CHEMISTRY METHOD 06/19/2024 8:17 AM EST [facility] Blood Venous blood specimen / Unknown Venipuncture / Unknown 06/18/2024 10:03 AM EST 06/18/2024 10:15 AM EST Narrative [facility] - 06/19/2024 8:17 AM EST Procalcitonin > 2.00 ng/ml: Procalcitonin Levels above 2.00 ng/ml, on the first day of ICU admission represent a high risk for progression to severe sepsis and/or septic shock. Procalcitonin < 0.50 ng/ml: Procalcitonin levels below 0.50 ng/ml on the first day of ICU admission represent a low risk for progression to severe sepsis and/or septic shock. Concentrations <0.5 ng/mL do not exclude an infection, on account of local ized infections (without systemic signs) which can be associated with such low concentrations, or a systemic infection in its initial stages (<6 hours). Furthermore, increased procalcitonin can occur without infection. PCT concentrations between 0.5 and 2.0 ng/mL should be interpreted taking into account the patient's history. It is recommended to retest PCT within 6-24 hours if any concentrations <2.0 ng/mL are obtained. Carmenza Ram MD LAB BLOOD ORDERABLES [facility] [address] [place] [address], from Last 3 Months Advance Directives Documents on File Type Date Recorded Patient Wood Chopper Expl anation Health Care Decision (hx) 11/15/2023 AD PUENTE DIRECTIVE Health Care Decision (hx) 11/15/2023 AD PUENTE DIRECTIVE Health Care Decision (hx) 11/15/2023 AD PUENTE DIRECTIVE Health Care Decision (hx) 11/15/2023 AD PUENTE DIRECTIVE Health Care Decision (hx) 11/15/2023 AD PUENTE DIRECTIVE Health Care Decision (hx) 11/15/2023 AD PUENTE DIRECTIVE Health Care Decision (hx) 11/15/2023 AD PUENTE DIRECTIVE Health Care Decision (hx) 11/15/2023 AD PUENTE DIRECTIVE Health Care Decision (hx) 11/15/2023 AD PUENTE DIRECTIVE Health Care Decision (hx) 11/15/2023 AD PUENTE DIRECTIVE Health Care Decision (hx) 11/15/2023 AD PUENTE DIRECTIVE Health Care Decision (hx) 11/15/2023 AD PUENTE DIRECTIVE Health Care Decision (hx) 11/15/2023 AD PUENTE DIRECTIVE Health Care Decision (hx) 11/15/2023 AD PUENTE DIRECTIVE Health Care Decision (hx) 11/15/2023 AD PUENTE DIRECTIVE * Full Code - Default (Latest Code Status on File) Date Activated Date Inactivated Comments 07/30/2024 6:40 AM 08/06/2024 5:57 PM This is orde r is used when code status has not been discussed with the patient, or code status is otherwise unknown/unconfirmed To update the patient's code status, place a code status order. Do not modify or discontinue any currently active code status orders. * Full Code - Default Date Activated Date Inactivated Comments 06/18/2024 6:44 PM 06/22/2024 2:04 PM This is or ana is used when code status has not been discussed with the patient, or code status is otherwise unknown/unconfirmed To update the patient's code status, place a code status order. Do not modify or discontinue any currently active code status orders. Care Teams School Inspector Relationship Specialty Start Date End Date Oralia Palomino MD [address] [place] [address] PCP - General 11/23/23
--- OUTSIDE RECORDS SUMMARY | 2024-08-27 14:48 | XMS_ITS | Encounter Summary ---
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 For example, children's zoo caretaker or elderly care for an older adult? [...] file Not on file Not on file documented as of this encounter Last Filed Vital Signs Vital Sign Reading Time Taken Comments Blood Pressure 126/79 08/16/2024 1:13 PM EST Pulse 94 08/16/2024 1:13 PM EST Temperature 37.3 ??C (99.1 ??F) 08/16/2024 1:13 PM ES T Respiratory Rate - - Oxygen Saturation 99% 08/16/2024 1:13 PM EST Inhaled Oxygen Concentration - - Weight - - Height - - Body Mass Index - - documented in this encounter Functional Status Functional Status Response Date of Assess ment Are you deaf or do you have serious difficulty h earing? No 06/28/2024 Are you blind or do you have serious difficulty seeing, even when wearing glasses? No 06/28/2024 Do you have serious difficul ty walking or climbing stairs? No 06/28/2024 Do you have serious difficulty dressing or bathi ng? No 06/28/2024 Because of a physical, menta l, or emotional condition, do you have serious difficulty doing errands alone such as visiting the doctor? No 06/28/2024 Cognitive Status Response Date of Assessm ent Because of a physical, menta l, or emotional condition, do you have serious difficulty concentrating, remembering, or making decisions? (5 years old or older) No 06/28/2024 documented as of this encounter Medications at Time of Discharge Medication Sig Dispensed Refills Start Date End Date albuterol HFA (PROAIR HFA ; PROVENTIL HFA ; VENTOLIN HFA) 90 mcg/actuation inhaler Inhale 2 puffs by mouth every 6 (six) hours if needed for wheezing. aspirin 81 mg EC tablet Take 1 tablet (81 mg total) by mouth 1 (one) time each day. chlorhexidine (HIBICLENS) 4 % external liquid To apply to the affected area twice a day. Rinse thoroughly after 5 minutes. 08/15/2024 gabapentin (NEURONTIN) 400 mg capsule Take 1 capsule (400 mg total) by mouth 3 (three) times a day. 07/04/2024 insulin detemir (Levemir FlexPen) 100 unit/mL (3 mL) injection pen Infuse 4-6 Units into a venous catheter 1 (one) time each day. 07/19/2017 insulin lispro (HumaLOG KwikPen) 100 unit/mL injection pen 2-4 Units 3 (three) times a day before meals. 11/16/2023 levothyroxine (SYNTHROID, LEVOTHROID) 50 mcg tabletIndications:Hepa tocellular carcinoma (CMS/HCC) Take 1 tablet (50 mcg total) by mouth 1 (one) time each day before breakfast. 90 each 1 07/30/2024 01/26/2025 melatonin 3 mg tablet Take 2 tablets (6 mg total) by mouth at bedtime. nicotine (NICODERM CQ) 7 mg/[address] 1 patch on the skin 1 (one) time each day at the same time. senna (SENOKOT) 8.6 mg tablet Take 1 tablet (8.6 mg total) by mouth 2 (two) times a day if needed for constipation. 60 each 08/05/2024 09/04/2024 spironolactone (ALDACTONE) 50 mg tablet Take 1 tablet (50 mg total) by mouth 2 (two) times a day with meals. 60 each 08/05/2024 09/04/2024 triamcinolone (KENALOG) 0.1 % ointment Apply 1 Application topically 2 times daily. 07/03/2024 amoxicillin-clavulanat e (AUGMENTIN) 875-125 mg per tablet Take 1 tablet by mouth 2 times daily. 08/15/2024 08/25/2024 sulfamethoxazole-trime thoprim (BACTRIM DS,SEPTRA DS) 800-160 mg per tablet Take 1 tablet by mouth 2 times daily. 08/15/2024 08/22/2024 traMADoL (ULTRAM) 50 mg tablet Take 1 tablet (50 mg total) by mouth every 6 hours as needed. 08/15/2024 08/20/2024 documented as of this encounter Discharge Disposition Disposition Code Departure Means Destination Home or Self Care documented in this encounter Progress Notes * Joan Tubbs RN - 08/16/2024 1:00 PM EST Patient arrives ambulatory for his first Pembrolizumab. Patient was previously on zirabev and tecentriq. Patient states he kept having issues like scrotal cellulitis and also abscesses. Patient states he has an abscess earlier this week and states I popped it He tells this RN he has been having scrotal abscesses since he was 16 years old. Patient otherwise is complaint free. Patient denies n/v/d. He denies any issues urinating or having bowel movements. He has chronic diffuse body pain and takes tramadol with relief. He states I dont want anything stronger Patient given extensive education on Pembrolizumab. He is aware of side effects and s/s of allergicreaction. Patient is aware that it is a mab drug and works with his immune system. We talked about pneumonitis and colitis, etc and when to call us for any side effects he may have. Patient seemed understanding of education and asked great questions. Per MD ok for next appt to be on Tuesday, it will be 1 day early and ok per md. Patient finished treatment without incident. Port flushed and de-accessed per protocol. Next appt made and given. Patient left stable and ambulatory, instructed to call with any questions or concerns. documented in this encounter Plan of Treatment Upcoming Encounters Date Type Department Care Team (Late st Contact Info) Description 09/03/2024 9:15 AM EST Consult General Surgery - [place] [address] [facility] [address] [place] [phone] Mitchel Crisostomo, DO [address] [address] [facility] [address] [facility] [address] [place] [address] 09/04/2024 9:00 AM EST Appointment [facility] [address] 2nd [place] [phone] 09/05/2024 10:30 AM EST Office Visit [facility] Hematology Oncology [address] [place] [phone] Sruthi-Adal Ludwig MD [address] [place] [phone] 09/05/2024 11:00 AM EST Appointment 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 New Bag 08/16/2024 1:49 PM EST 200 mg 216 mL/hr documented in this encounter Orders Medications Ordered That Luis Alberto ht Not Have Been Administered Count Last Ordered Date First Ordered Date pembrolizumab (KEYTRUDA) 200 mg in sodium chloride 108 mL chemo IVPB 1 08/16/2024 documented in this encounter Care Teams Academic Services Professional Relationship Specialty Start Date End Date Oralia Palomino MD [address] [place], [place] PCP - General 11/23/23 documented as of this encounter
--- OUTSIDE RECORDS SUMMARY | 2024-08-27 14:48 | XMS_ITS | Encounter Summary ---
Author Organization [facility] Address [address] [place] [address] Care Team Providers Care Well Puller Head Name Role Phone Oralia Palomino MD Primary Care Provider [phone] [phone] Encounter Details Date Type Department Care Team (Late st Contact Info) Description 08/15/2024 Telephone [facility] Infusion Center [address] [facility] 2nd [place] [address] [facility] [place] Social History Tobacco Use Types Packs/Day Years [...] for your loved ones. For example, child welfare assistant or elderly care for an older adult? [...] on file documented as of this encounter Functional Status Functional Status Response [...] No 06/28/2024 documented as of this encounter Plan of Treatment Upcoming Encounters Date Type Department Care Team (Late st Contact Info) Description 09/03/2024 9:15 AM EST Consult General Surgery - [place] [address] [phone] Mitchel Crisostomo, DO [address] [address] 09/04/2024 9:00 AM EST Appointment [address] [address] 09/05/2024 10:30 AM EST Office Visit [facility] Hematology Oncology [address] [place] [phone] Adal Goldstein MD [address] [place] [address] 09/05/2024 11:00 AM EST Appointment [address] [address] 09/05/2024 2:00 PM EST Office Visit Infectious Disease - [place] [address] [phone] Bridgette Correa MD [address] [address] documented as of this encounter Visit Diagnoses Not on filedocumented in this encounter Care Teams Well Puller Head Relationship Specialty Start Date End Date Oralia Palomino MD [address] [place] [address] PCP - General 11/23/23 documented as of this encounter
--- OUTSIDE RECORDS SUMMARY | 2024-08-27 14:49 | XMS_ITS | Encounter Summary ---
Author Organization [employer] Address [address] [facility] 7t [place] [address] Care Team Providers Care Electrician Technician Name Role Phone Oralia Palomino MD Primary Care Provider [phone]- [phone] Reason for Visit * Reason Onset Date Comments Care Coordination 08/13/2024 C3 initial a ssessment/ enrollment Encounter Details Date Type Department Care Team ([facility] Contact Info) Description 08/13/2024 Telephone [facility] CHC MED & PEDS [address] [place] [address] Soumya Mcgrath RN [address] [place], [place] Care Coordination ([facility] initial assessment/ enrollment) Social History Tobacco Use Types Packs/Day Years Used Date Smoking Tobacco: Every Day Cigarettes 1 40 Started: 07/1983; Last attempted to quit: 07/2023 Passive Smoke Exposure: Past Smokeless Tobacco: Former Quit: 07/2023 Comments:Had recently picked up smoking again. Has not smoked today. Depression Answer Date Recorded Patient Health Questionnaire-9 Score 0 07/28/2022 Housing Stability Answer Date Recorded What is your housing situation today? I have housing today, but I am worried about losing housing in the future 08/24/[address] you li ve. Do you have problems with any of the following? None of the above 08/24/2023 Food Insecurity Answer Date Recorded Within the past 12 months, y ou worried that your food would run out before you got money to buy more: Sometimes True 2023 Within the past 12 months,th e food you bought just didn't last and you didn't have enough money to get more: Sometimes True 08/24/2023 Transportation Answer Date Recorded In the past 12 months, has l ack of transportation kept you from medical appts, meetings, work or from getting things needed for daily living? No 08/24/2023 Utilities Answer Date Recorded In the past 12 months, has t he electric, gas, oil or water company threatened to shut off services in your home? No 08/24/2023 Depression Answer Date Recorded Patient Health Questionnaire-2 Score 0 07/28/2022 Sex and Gender Information Value Date Recorded Sex Assigned at Male 05/31/2022 10:16 AM EDT Legal Sex Male 10:16 AM EDT Gender Identity Male 07/28/2022 9:17 AM EST Sexual Orientation Straight 02/03/2023 1: 44 PM EDT documented as of this encounter Miscellaneous Notes * Telephone Encounter - Soumya Mcgrath RN - 08/13/2024 11:31 AM EST JAMES Mcgrath RN placed outbound call to patient for agreed upon time for initial assessment for enrollment into Adult Care Management Program. Patient's name, , and address were verified. Pt is a 54 year old male with medical history significant for Type 2 DM, diabetic neuropathy, essentialhypertension. JAMES spoke with pt who states he has an upcoming appt with oncology and PCP on 08/15/24. Pt states he has a form of transportation to his appts and is currently working. Pt states he has enough food to last him for a month and is up to date with his rent and utilities. Pt states he is sometimes compliance with diabetic diet and walks as a form of exercise. Pt states he checks his BP and BG at home and reading has been within normal range. Pt c/o peripheral neuropathy and states he is on Gabapentin for the pain with somewhat effect. Pt states he will discuss further with PCP for pain management during upcoming PCP appt. Pt reports he feels safe in his home and states he smokes 1/2 pack of cigarette in a day. Pt denies smoking or taking any illegal drugs. Pt c/o anxiety and depression. Pt states he doesn't see a therapist or psychiatrist. CM has referred pt to N. Pt denies SI/ HI. CM informed pt of the number for crisis and encourage to call when needed. According to pt, he hasn't seen a dentist or event specialist food demonstrator over a yea. JAMES was able to assist pt to schedule an appt with [facility] eye clinic for 12/05/24 at 2pm. Pt is aware of appt date and time. Pt declined when offered to reschedule missed appt with the dentist. Per pt, he will reach out to his friend to find out whichdentist he sees and will call their office to schedule an appt. t states his sister is his HCP and is aware of his medical wishes. Pt states he is compliant with all his medications and denies any side effect. Care management program explained and contact information given. Patient verbalizes understanding, and able to repeat back to jingle writer. A follow up call will be placed within 10 days, patient agrees with plan. JAMES Mcgrath RN, provided notification to PCP Dr. Palomino of patient's enrollment into C3 Complex Care Program. JAMES Mcgrath RN, completed care plan and sent to HIM to be scanned into the medical record. PCP notified and awaiting review from provider. * Telephone Encounter - Soumya Mcgrath RN - 08/13/2024 10:16 AM EST Pt is requesting for [facility] referral for depression and anxiety documented in this encounter Plan of Treatment Upcoming Encounters Date Type Department Care Team (Late st Contact Info) Description 09/26/2024 11:15 AM EST Office Visit [facility] CHC MED & PEDS [address] [place] [address] Oralia Palomino MD [address] [place] [address] 12/05/2024 2:00 PM EDT Office Visit [facility] OPTOMETRY [address] [place] [address] Gretchen Mendosa, OD [address] [place] [address] documented as of this encounter Visit Diagnoses Not on filedocumented in this encounter Additional Health Concerns Assessment Noted Time PHQ-9 Depression Total Score: 0 07/28/20 22 9:44 AM EST documented as of this encounter Care Teams Electrician Technician Relationship Specialty Start Date End Date Oralia Palomino MD [address] [place] [id number] PCP - General Internal Medicine 10/04/18 documented as of this encounter
--- OUTSIDE RECORDS SUMMARY | 2024-08-27 14:49 | XMS_ITS | Encounter Summary ---
Author Organization [employer] Address [address] [facility] 7t [place] [address] Care Team Providers Care Communication Coordinator Name Role Phone Oralia Palomino MD Primary Care Provider Encounter Details Date Type Department Care Team ([facility] st Contact Info) Description 08/23/2024 Orders Only [facility] CHC MED & PEDS [address] [place], [place] [phone] Oralia Palomino MD [address] [place], [place] [phone] Essential hypertension (Primary Dx); Hyponatremia Social History Tobacco Use Types Packs/Day Years [...] PM EDT documented as of this encounter Plan of Treatment Upcoming Encounters Date Type Department Care Team (Late st Contact Info) Description 09/26/2024 11:15 AM EST Office Visit [facility] CHC MED & PEDS [address] [place] [address] Oralia Palomino MD [address] [place] [address] 12/05/2024 2:00 PM EDT Office Visit [facility] OPTOMETRY [address] [place] [address] Deondre, Gretchen, OD [address] [place] [address] Scheduled Orders Name Type Priority Associated Diagnoses Orde r Schedule Basic Metabolic Panel Lab Routine Essential hypertension Hyponatremia Expected: 08/23/2024 (Approximate), Expires: 08/23/2025 documented as of this encounter Visit Diagnoses Diagnosis Essential hypertension- Primary Unspecified essential hypertension Hyponatremia Hyposmolality and/or hyponatremia documented in this encounter Additional Health Concerns Assessment Noted Time PHQ-9 Depression Total Score: 0 07/28/20 9:44 AM EST documented as of this encounter Care Teams Communication Coordinator Relationship Specialty Start Date End Date Oralia Palomino MD [address] [place] [address] PCP - General Internal Medicine 10/04/18 documented as of this encounter
--- OUTSIDE RECORDS SUMMARY | 2024-08-27 14:49 | XMS_ITS | Encounter Summary ---
Author Organization [employer] Address [address] [facility] [address] 7t [place] [address] Care Team Providers Care Assembler Faucets Name Role Phone Oralia Palomino MD Primary Care Provider [phone]- [phone] Encounter Details Date Type Department Care Team (Late st Contact Info) Description 07/30/2024 Orders Only [facility] CHC MED & PEDS [address] [place] [address] Provider, MD Zachery Social History Tobacco Use Types Packs/Day Years [...] Description 09/26/2024 11:15 AM EST Office Visit [facility] CHC MED & PEDS [address] [place], [place] [phone] Oralia Palomino MD [address] [place], [place] [phone] 12/05/2024 2:00 PM EDT Office Visit [facility] OPTOMETRY [address] [place], [place] [phone] Deondre, Gretchen, OD [address] [place] [address] documented as of this encounter Procedures Procedure Name Priority Date/Time Associated Diagnosis Comments TRANSTHORACIC ECHO (TTE) COMPLETE Routine 07/30/2024 2:[address] ABDOMEN PELVIS W CONTRAST Routine 07/30/2024 10:[address] ABDOMEN PELVIS W CONTRAST Routine 07/30/2024 10:21 AM EST documented in this encounter Results * Transthoracic echo (TTE) complete (07/30/2024 2:20 PM EST) Historical Provider CV ECHO PROCEDURES Final Result * CT Abdomen Pelvis w/ Contrast (07/30/2024 10:24 AM EST) Anatomical Region Laterality Modality Body, Pelvis, Abdomen Computed T omography Historical Provider MD REED CT PROCEDURES Final R esult * CT Abdomen Pelvis w/ Contrast (07/30/2024 10:21 AM EST) Anatomical Region Laterality Modality Body, Pelvis, Abdomen Computed T omography Historical Provider MD REED CT PROCEDURES Final R esult documented in this encounter Visit Diagnoses Not on filedocumented in this encounter Additional Health Concerns Assessment Noted Time PHQ-9 Depression Total Score: 0 07/28/20 22 9:44 AM EST documented as of this encounter Care Teams Assembler Faucets Relationship Specialty Start Date End Date Oralia Palomino MD [address] [place] [address] PCP - General Internal Medicine 10/04/18 documented as of this encounter
--- OUTSIDE RECORDS SUMMARY | 2024-08-27 14:49 | XMS_ITS | Encounter Summary ---
Author Organization [employer] Address [address] [facility] 7t [place] [address] Care Team Providers Care Electrical/Instrument Technician Name Role Phone Oralia Palomino MD Primary Care Provider [phone]- [phone] Reason for Visit * Reason Comments Care Coordination Outreach Encounter Details Date Type Department Care Team (Latest Contact Info) Description 08/10/2024 Patient Outreach [facility] CHC MED & PEDS [address] [place], [place] [phone] Oralia Palomino MD [address] [place] [address] Care Coordination (Outreach) Social History Tobacco Use Types Packs/Day Years [...] PM EDT documented as of this encounter Progress Notes * Maria M Hendricks - 08/10/2024 3:02 PM EST CHW Maria M Hendricks placed outbound call to patient. No answer at this time. LVM introducing herself from [facility] CM Department, reminding patient of initial assessment appt via telephone on 08/13/24 @ 10:00 AM with Adult Complex Care program services. Requested call back to , as well as for any additional questions or concerns. documented in this encounter Plan of Treatment Upcoming Encounters Date Type Department Care Team (Late st Contact Info) Description 09/26/2024 11:15 AM EST Office Visit [facility] CHC MED & PEDS [address] [place] [address] Oralia Palomino MD [address] [place] [address] 12/05/2024 2:00 PM EDT Office Visit [facility] OPTOMETRY [address] [place] [address] Gretchen Mendosa, OD [address] [place] [address] documented as of this encounter Visit Diagnoses Not on filedocumented in this encounter Additional Health Concerns Assessment Noted Time PHQ-9 Depression Total Score: 0 07/28/20 9:44 AM EST documented as of this encounter Care Teams Electrical/Instrument Technician Relationship Specialty Start Date End Date Oralia Palomino MD [address] [place] [address] PCP - General Internal Medicine 10/04/18 documented as of this encounter
--- OUTSIDE RECORDS SUMMARY | 2024-08-27 14:49 | XMS_ITS | Encounter Summary ---
Author Organization [employer] Address [address] [facility] [address] 7[address] [place] [address] Care Team Providers Care Display Fabricator Name Role Phone Oralia Palomino MD Primary Care Provider [phone] [phone] Encounter Details Date Type Department Care Team (Latest Contact Info) Description 08/13/2024 Travel Social History Tobacco Use Types Packs/Day Years [...] Description 09/26/2024 11:15 AM EST Office Visit [facility] CHC MED & PEDS [address] [place] [address] Oralia Palomino MD [address] [place] [address] 12/05/2024 2:00 PM EDT Office Visit [facility] OPTOMETRY [address] [place] [address] Deondre, Gretchen, OD [address] [place] [address] documented as of this encounter Visit Diagnoses Not on filedocumented in this encounter Additional Health Concerns Assessment Noted Time PHQ-9 Depression Total Score: 0 07/28/20 22 9:44 AM EST documented as of this encounter Care Teams Display Fabricator Relationship Specialty Start Date End Date Oralia Palomino MD [address] [place] [address] PCP - General Internal Medicine 10/04/18 documented as of this encounter
--- OUTSIDE RECORDS SUMMARY | 2024-08-27 14:49 | XMS_ITS | Encounter Summary ---
Author Organization [employer] Address [address] [facility] 7t [place] [address] Care Team Providers Care Racing Secretary And Handicapper Name Role Phone Oralia Palomino MD Primary Care Provider Reason for Visit * Reason Onset Date Comments Chart Prep 08/14/2024 Encounter Details Date Type Department Care Team ([facility] st Contact Info) Description 08/14/2024 Telephone [facility] MED & PEDS [address] [place] [address] Oralia Palomino MD [address] [place] [address] Chart Prep Social History Tobacco Use Types Packs/Day Years [...] encounter Miscellaneous Notes * Telephone Encounter - Ruby Bowling MA - 08/14/2024 1:25 PM EST Chart Prep Labs: done Images: done Vaccines due: yes Referrals: complete Screenings: colonoscopy , eye exam , Foot Exam, STI screening Overdue care gaps: A1C, Glucose, Sbirt documented in this encounter Plan of Treatment Upcoming Encounters Date Type Department Care Team (Late st Contact Info) Description 09/26/2024 11:15 AM EST Office Visit [facility] MED & PEDS [address] [place] [address] Oralia Palomino MD [address] [place] [address] 12/05/2024 2:00 PM EDT Office Visit [facility] OPTOMETRY [address] [place] [address] Deondre, Gretchen, OD [address] [place] [address] documented as of this encounter Visit Diagnoses Not on filedocumented in this encounter Additional Health Concerns Assessment Noted Time PHQ-9 Depression Total Score: 0 07/28/20 9:44 AM EST documented as of this encounter Care Teams Racing Secretary And Handicapper Relationship Specialty Start Date End Date Oralia Palomino MD [address] [place] [address] PCP - General Internal Medicine 10/04/18 documented as of this encounter
--- OUTSIDE RECORDS SUMMARY | 2024-08-27 14:49 | XMS_ITS | Encounter Summary ---
Author Organization [employer] Address [address] [facility] 7t [place] [address] Care Team Providers Care Manager Hotel Name Role Phone Oralia Palomino MD Primary Care Provider Encounter Details Date Type Department Care Team ([facility] st Contact Info) Description 08/16/2024 Telephone [facility] MED & PEDS [address] [place] [address] Oralia Palomino MD [address] [place] [address] Social History Tobacco Use Types Packs/Day Years [...] as of this encounter Miscellaneous Notes * Addendum Note - Stephanie Larsen RN - 08/23/2024 9:41 AM ESTAddended by: STEPHANIE LARSEN on: 08/23/2024 09:41 AM Modules accepted: Orders * Telephone Encounter - Da Grimes RN - 08/17/2024 4:11 PM EST TC placed, spoke with pt, inform of message below from PCP. Pt verbalized understanding and agreed to plan. Please place the repeat sodium blood test, thanks. * Telephone Encounter - Da Grimes RN - 08/17/2024 2:40 PM EST TC placed x2, no answer, LVM to RTC. Sending back to [facility] in-basket to retry for a 3rd time and if no answer please generate a letter. Thanks. * Telephone Encounter - Da Grimes RN - 08/16/2024 10:03 AM EST TC placed, no answer, LVM to RTC. Tasking to RN in-basket to retry call. * Telephone Encounter - Da Grimes RN - 08/16/2024 10:03 AM EST ----- Message from Oralia Palomino MD sent at 08/15/2024 2:53 PM EST ----- Please call. Labs reviewed. Sodium level has improved but still below goal of 135 mEq. I recommend to resume hydrochlorothiazide but cautiously 12.5 mg every other day for now. Repeat sodium level etelvina week. ----- Message ----- From: India Rudd MA Sent: 08/15/2024 10:36 AM EST To: Oralia Palomino MD documented in this encounter Plan of Treatment Upcoming Encounters Date Type Department Care Team (Late st Contact Info) Description 09/26/2024 11:15 AM EST Office Visit [facility] MED & PEDS [address] [place] [address] Oralia Palomino MD [address] [place] [address] 12/05/2024 2:00 PM EDT Office Visit [facility] OPTOMETRY [address] [place] [address] Gretchen Mendosa, OD [address] [place] [address] documented as of this encounter Procedures Procedure Name Priority Date/Time Associated Diagnosis Comments COMPREHENSIVE METABOLIC PANEL Routine 08/27/2024 10:13 AM EST Essential hypertension documented in this encounter Results * (ABNORMAL) Comprehensive Metabolic Panel (08/27/2024 10:13 AM EST) Sodium 132(L) 135 - 145 mmol/L [facility] Potassium 5.0 3.3 - 5.1 mmol/L [facility] Chloride 97 96 - 108 mmol/L [facility] Carbon Dioxide 32(H) 22 - 29 mmol/L [facility] Anion Gap 8(L) 12 - 20 [facility] Urea Nitrogen (BUN) 12 9 - 16 mg/dL [facility] Creatinine, Serum 0.75 0.5 - 1.4 mg/dL [facility] Estimated Glomerular Filt Rate >60 [facility] Comment:Chronic Kidney Disea se: Estimated GFR < 60 mL/min/1.46f2Agdbty Kidney Disease: Estimated GFR < 15 mL/min/1.73m2 Glucose 210(H) 60 - 115 mg/dL [facility] Calcium 9.0 8.4 - 10.2 mg/dL [facility] Bilirubin, Total 0.3 0.0 - 1.0 mg/dL [facility] Aspartate Amino Transferase 37 5 - 37 U/L [facility] Alanine Aminotransferase 20 0 - 40 U/L [facility] Total Protein 8.2(H) 6.5 - 8.0 g/dL [facility] Albumin Level 3.4(L) 3.5 - 5.0 g/dL [facility] Alkaline Phosphatase 94 39 - 117 U/L [facility] Blood Venous blood specimen / Unknown 08/27/2024 10:13 AM EST 08/27/2024 2:21 PM EST Oralia Palomino MD LAB BLOOD ORDERABLES Final Result [facility] [address] [place] [address] [phone] documented in this encounter Visit Diagnoses Diagnosis Essential hypertension- Primary Unspecified essential hypertension Type 2 diabetes mellitus with diabetic neuropathy, with long-term current use of insulin ([facility]) documented in this encounter Additional Health Concerns Assessment Noted Time PHQ-9 Depression Total Score: 0 07/28/20 22 9:44 AM EST documented as of this encounter Care Teams Manager Hotel Relationship Specialty Start Date End Date Oralia Palomino MD [address] [place] [phone] PCP - General Internal Medicine 10/04/18 documented as of this encounter
--- OUTSIDE RECORDS SUMMARY | 2024-08-27 14:49 | XMS_ITS | Encounter Summary ---
Author Organization [employer] Address [address] [place] [address] 7 [place] [address] Care Team Providers Care Car Rental Deliverer Name Role Phone Oralia Palomino MD Primary Care Provider [phone] Reason for Visit * Reason Comments Hospital discharge follow-up Encounter Details Date Type Department Care Team (Latest Contact Info) Description 08/15/2024 9:45 AM EST Office Visit [facility] MED & PEDS [address] [place] [address] Oralia Palomino MD [address] [place] [address] Type 2 diabetes mellitus with diabetic neuropathy, with long-term current use of insulin (CMS/HCC) (Primary Dx); Diabetic polyneuropathy associated with type 2 diabetes mellitus (CMS/HCC); Pruritus scroti; Psoriasiform dermatitis; Cellulitis of perineum Social History Tobacco Use Types Packs/Day Years [...] PM EDT documented as of this encounter Last Filed Vital Signs Vital Sign Reading Time Taken Comments Blood Pressure 132/85 08/15/2024 9:54 AM EST Pulse 80 08/15/2024 9:54 AM EST Temperature 36.7 ??C (98 ??F) 08/15/2024 9:54 AM EST Respiratory Rate 20 08/15/2024 9:54 AM EST Oxygen Saturation 98% 08/15/2024 9:54 AM EST Inhaled Oxygen Concentration - - Weight 137 kg (303 lb) 08/15/2024 9:54 AM EST Height 186.7 cm (6' 1.5 ) 08/15/2024 9:54 AM EST Body Mass Index 39.43 08/15/2024 9:54 AM EST documented in this encounter Progress Notes * Oralia Palomino MD - 08/15/2024 9:45 AM EST Subjective Patient ID: Victor Manuel Cole is a 54 y.o. male who presents for Hospital discharge follow-up. HPI Patient was hospitalized at [facility] on July 30, 2020 for with scrotal swelling with the impression of scrotal cellulitis. Treated with broad- spectrum antibiotics with improvement. Also had lip swelling compatible with angioedema treated with systemic steroid and H2 blockers with improvement. NOY inhibitor discontinued. Continued on doxycycline with improvement. Also noted to have anasarca with scrotal edema in the setting of Hepatocellular carcinoma. Echocardiogram showed ejection fraction of 60 to 65%. No hemodynamically significant valve disease noted. Ultrasound duplex of the lower extremity showed no evidence of deep venous thrombosis. Scrotum ultrasound: Diffuse bilateral scrotal alonzo thickening and edema. Small bilateral hydroceles. Testicles and epididymis were normal. UA no bacteria Patient received IV Lasix and spironolactone. Advised fluids fluid restriction 1500 mL daily. Patient improved with diuretics and attempt at switching to oral Lasix was not successful because patient developed hyponatremia. At discharge he was recommended to continue with spironolactone 50 mg2 times a day and to hold hydrochlorothiazide until he checks repeat electrolyte panel. If normal hy drochlorothiazide could be resumed. During the evaluation today patient reports that the swelling of the scrotum and the lower limb hasrecurred despite him being very cautious with his fluid intake. Very compliant with his fluid restriction. He is also complaining of pain in the perineal area the lower limbs bilateral shoulders and other joints. He has a scheduled appointment with his oncologist this afternoon. Patient Active Problem List Diagnosis Chronic hepatitis C without hepatic coma (CMS/HCC) Essential hypertension Morbid obesity (CMS/HCC) Type 2 diabetes mellitus with diabetic neuropathy, with long-term current use of insulin (CMS/HCC) Diabetic neuropathy (CMS/HCC) Hepatocellular carcinoma (CMS/HCC) Current Outpatient Medications on File Prior to Visit Medication Sig Dispense Refill ammonium lactate (Amlactin) 12 % cream Apply topically every 12 (twelve) hours. baclofen (Lioresal) 10 MG tablet Take 1 tablet (10 mg) by mouth 3 times daily. 90 tablet 0 Blood Glucose Monitoring Suppl (FreeStyle Lite) w/Device kit TEST 1 TIME BY SUBCUTANEOUS ROUTE ONCE1 kit 0 Blood Pressure kit To check the BP every other day and as needed 1 kit 0 FreeStyle lancets APPLY 1 LANCET BY TO SKIN ROUTE 4 TIMES EVERY DAY 120 each 11 FREESTYLE LITE test strip USE 1 BY TO SKIN ROUTE 4 TIMES EVERY DAY 100 strip 11 gabapentin (Neurontin) 400 MG capsule Take 1 capsule (400 mg) by mouth 3 times daily. 90 capsule 11 hydroCHLOROthiazide 12.5 MG tablet Take 1 tablet (12.5 mg) by mouth Once per day. 30 tablet 11 Insulin Glargine Solostar 100 UNIT/ML solution pen-injector Inject 10 Units under the skin at bedtime. 4 mL 11 insulin lispro (HumaLOG KWIKPEN) 100 UNIT/ML injection Inject three times daily 15 minutes before meals per sliding scale BS 70-130= 0 units 131/180= 2 units 181-240= 4 units 241-300= 6 units 301-350= 8 units 351-400=10 units Over 400= 12 units and call MD 45 mL 3 melatonin 3 MG tablet Take 2 tablets (6 mg) by mouth if needed at bedtime for sleep. 30 tablet 11 nicotine (Nicoderm CQ) 7 MG/24HR patch Place 1 patch on the skin 1 (one) time each day at the same time. 30 patch 0 nicotine (Nicoderm, Step 2) 14 MG/24HR patch PLACE 1 PATCH ON THE SKIN 1 TIME EACH DAY AT THE SAME TIME. 30 patch 0 nystatin (Mycostatin) cream APPLY TO AFFECTED AREA TWICE A DAY 15 g 0 pancrelipase, Xtk-Xqym-Tduc, (Creon) 89043-73856 units capsule Take 6 capsules (72,000 units of lipase) by mouth with breakfast, with lunch, and with evening meal. 90 capsule 3 tiotropium (Spiriva HandiHaler) [address] 1 capsule (18 mcg) into inhaler andinhale in the morning. (Patient not taking: Reported on 11/28/2023) 30 capsule 11 triamcinolone (Kenalog) 0.1 % ointment Apply topically 2 times daily. 30 g 0 varenicline (Chantix) 0.5 MG tablet Take with full glass of water. Days 1 to 3: 0.5 mg once daily. Days 4 to 7: 0.5 mg twice daily. 20 tablet 0 Ventolin HFA 108 (90 Base) MCG/ACT inhaler INHALE 2 PUFFS EVERY 6 HOURS IF NEEDED FOR WHEEZING. 18 g 3 No current facility-administered medications on file prior to visit. Allergies Allergen Reactions Lisinopril Angioedema Review of Systems Constitutional: Negative for activity change, appetite change and chills. Eyes: Negative for pain and redness. Respiratory: Negative for shortness of breath. Cardiovascular: Positive for leg swelling. Negative for chest pain. Genitourinary: Positive for penile swelling and scrotal swelling. Musculoskeletal: Positive for arthralgias, back pain and myalgias. Objective BP 132/85 (BP Location: Left arm, Patient Position: Sitting, BP Cuff Size: Adult long) Pulse 80 Temp 98 ??F (36.7 ??C) (Oral) Resp 20 Ht 6' 1.5 (1.867 m) Wt 303 lb (137 kg) SpO2 98% BMI 39.43 kg/m?? Physical Exam Constitutional: General: He is not in acute distress. Appearance: Normal appearance. He is not ill-appearing, toxic-appearing or diaphoretic. Cardiovascular: Rate and Rhythm: Normal rate. Pulmonary: Effort: Pulmonary effort is normal. Genitourinary: Penis: Swelling present. Comments: Swelling of the penis and the scrotum. Musculoskeletal: Right lower le+ Edema present. Left lower le+ Edema present. Skin: Comments: 2 by 2 cm erythema with swelling and presents of the scab of the perineal area. No fluctuance. Neurological: Mental Status: He is alert. Assessment/Plan Diagnoses and all orders for this visit: Type 2 diabetes mellitus with diabetic neuropathy, with long-term current use of insulin ([facility]) Comments: No change to current management today Low-carb diet Same medication for now. BMP MP ordered particularly to check the sodium level and patient's kidney function in order to assess if hydrochlorothiazide can be resumed given the recurrence of the swelling of the lower limbs inthe scrotum off Lasix. Orders: - POCT Glucose - POCT HGB A1C - Basic Metabolic Panel; Future - traMADol (Ultram) 50 MG tablet; Take 1 tablet (50 mg) by mouth every 6 (six) hours if needed for severe pain for up to 5 days. Diabetic polyneuropathy associated with type 2 diabetes mellitus ([facility]) Comments: Gabapentin dose increased to 600 mg 3 times a day Further increase depending on the response in about a month or so Orders: - gabapentin (Neurontin) 600 MG tablet; Take 1 tablet (600 mg) by mouth 3 times daily. Pruritus scroti Comments: Would benefit from the Derm clinic evaluation Gabapentin dose increased Avoid steroid on the lesions Orders: - gabapentin (Neurontin) 600 MG tablet; Take 1 tablet (600 mg) by mouth 3 times daily. Psoriasiform dermatitis Comments: Continue with triamcinolone Orders: - triamcinolone (Kenalog) 0.1 % ointment; Apply topically 2 times daily. Cellulitis of perineum - Chlorhexidine Gluconate (Hibiclens) 4 % solution; To apply to the affected area twice a day. Rinse thoroughly after 5 minutes. - amoxicillin-clavulanate (Augmentin) 875-125 MG tablet; Take 1 tablet by mouth 2 times daily for 10 days. - sulfamethoxazole-trimethoprim (Bactrim DS) 800-160 MG tablet; Take 1 tablet by mouth 2 times daily for 7 days. documented in this encounter Plan of Treatment Upcoming Encounters Date Type Department Care Team (Late st Contact Info) Description 09/26/2024 11:15 AM EST Office Visit [facility] MED & PEDS [address] [place], [place] [phone] Oralia Palomino MD [address] [place], [place] [phone] 12/05/2024 2:00 PM EDT Office Visit [facility] OPTOMETRY [address] [place] [address] Deondre, Gretchen, OD [address] [place] [address] documented as of this encounter Procedures Procedure Name Priority Date/Time Associated Diagnosis Comments POCT GLYCATED HEMOGLOBIN, TOTAL Routine 08/15/2024 10:36 AM EST Type 2 diabetes mellitus with diabetic neuropathy, with long-term current use of insulin ([facility]) POCT GLUCOSE Routine 08/15/2024 10:36 AM EST Type 2 diabetes mellitus with diabetic neuropathy, with long-term current use of insulin ([facility]) BASIC METABOLIC PANEL Routine 08/15/2024 10:27 AM EST Type 2 diabetes mellitus with diabetic neuropathy, with long-term current use of insulin ([facility]) documented in this encounter Results * (ABNORMAL) POCT HGB A1C (08/15/2024 10:36 AM EST) Hemoglobin A1C 8.4(A) 4.0 - 6.0 % QC Media Lot # [id number] Lot# Expiration Date [id number] Blood 08/15/2024 10:3 6 AM EST Oralia Palomino MD POINT OF CARE TEST ENTER/ED IT ORDERABLES Final Result * (ABNORMAL) POCT Glucose (08/15/2024 10:36 AM EST) Glucose Blood, POC 260(A) 60 - 200 mg/dL QC Media Lot # [id number] Comment:random Lot# Expiration Date [id number] Blood Capillary blood specimen / Unknown 08/15/2024 10:36 AM EST Oralia Palomino MD POINT OF CARE TEST ENTER/ED IT ORDERABLES Final Result * (ABNORMAL) Basic Metabolic Panel (08/15/2024 10:27 AM EST) Sodium 134(L) 135 - 145 mmol/L [facility] Potassium 5.0 3.3 - 5.1 mmol/L [facility] Chloride 97 96 - 108 mmol/L [facility] Carbon Dioxide 31(H) 22 - 29 mmol/L [facility] Anion Gap 11(L) 12 - 20 [facility] Urea Nitrogen (BUN) 12 9 - 16 mg/dL [facility] Creatinine, Serum 0.77 0.5 - 1.4 mg/dL [facility] Estimated Glomerular Filt Rate >60 [facility] Comment:Chronic Kidney Disea se: Estimated GFR < 60 mL/min/1.37t9Hlyqdt Kidney Disease: Estimated GFR < 15 mL/min/1.73m2 Glucose 213(H) 60 - 115 mg/dL [facility] Calcium 9.6 8.4 - 10.2 mg/dL [facility] Blood Venous blood specimen / Unknown 08/15/2024 10:27 AM EST 08/15/2024 2:20 PM EST Oralia Palomino MD LAB BLOOD ORDERABLES Final Result [facility] [address] [place] [address] [phone] documented in this encounter Visit Diagnoses Diagnosis Type 2 diabetes mellitus with diabetic neuropathy, with long-term current use of insulin ([facility])- Primary Diabetic polyneuropathy associated with type 2 diabetes mellitus ([facility]) Pruritus scroti Pruritus of genital organs Psoriasiform dermatitis Other psoriasis and similar disorders Cellulitis of perineum Cellulitis and abscess of trunk documented in this encounter Additional Health Concerns Assessment Noted Time PHQ-9 Depression Total Score: 0 07/28/20 22 9:44 AM EST documented as of this encounter Care Teams Car Rental Deliverer Relationship Specialty Start Date End Date Oralia Palomino MD [address] [place] [id number] PCP - General Internal Medicine 10/04/18 documented as of this encounter
--- OUTSIDE RECORDS SUMMARY | 2024-08-27 14:49 | XMS_ITS | Encounter Summary ---
Author Organization [employer] Address [address] [place] [address] Care Team Providers Care College Athlete Name Role Phone Oralia Palomino MD Primary Care Provider [phone]- [phone] Encounter Details Date Type Department Care Team (Latest Contact Info) Description 08/15/2024 Travel Social History Tobacco Use Types Packs/Day [...] 09/26/2024 11:15 AM EST Office Visit [facility] MED & PEDS [address] [place] [address] Oralia Palomino MD [address] [place] [address] 12/05/2024 2:00 PM EDT Office Visit [facility] OPTOMETRY [address] [place] [address] Deondre, Gretchen, OD [address] [place] [address] documented as of this encounter Visit Diagnoses Not on filedocumented in this encounter Additional Health Concerns Assessment Noted Time PHQ-9 Depression Total Score: 0 07/28/20 22 9:44 AM EST documented as of this encounter Care Teams College Athlete Relationship Specialty Start Date End Date Oralia Palomino MD [address] [place] [address] PCP - General Internal Medicine 10/04/18 documented as of this encounter
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
--- OUTSIDE RECORDS SUMMARY | 2024-08-27 14:49 | XMS_ITS | Encounter Summary ---
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 For example, child care giver or elderly care for an older adult? [...] documented in this encounter Progress Notes * Candice Sanz MA - 08/15/2024 1:00 PM ESTEncounter addended by: Candice Sanz MA on: 08/17/2024 8:14 AM Actions taken: Charge Capture section accepted * Gladys Fregoso RN - 08/15/2024 1:00 PM EST 1315 Patient arrives ambulatory for port draw from follow up appointment. 1318 Port accessed per protocol, flushes easily. Blood return noted after pt held breath during flush and draw back. Once blood return was initiated pt could breath normally and labs were able to be drawn. Port flushed and de-accessed per protocol dry dressing applied. 1325 Pt requested appointment reminder printout to give to employer because he will need to leave work early tomorrow. This was given and pt was told we could print him a work note tomorrow at his appointment if the reminder was not sufficient for his employer. He ambulated off unit in stable condition. documented in this encounter Plan of Treatment Upcoming Encounters Date Type Department Care Team (Late st Contact Info) Description 09/03/2024 9:15 AM EST Consult General Surgery - [place] 175 [facility] [address] [place] [address] Mitchel Crisostomo, DO 175 [facility] [address] [place] [address] 09/04/2024 9:00 AM EST Appointment [facility] [address] [address] 09/05/2024 10:30 AM EST Office Visit [facility] Hematology Oncology [address] [place] [address] Adal Goldstein MD [address] [place] [address] 09/05/2024 11:00 AM EST Appointment [facility] [address] [phone] 09/05/2024 2:00 PM EST Office Visit Infectious Disease - [place] [address] [address] Bridgette Correa MD 175 [facility] [address] [place] [address] documented as of this encounter Procedures Procedure [...] of liver (CMS/HCC) documented in this encounter Results * (ABNORMAL) CBC auto differential (08/15/2024 1:24 PM EST) Pathologist [facility] WBC 8.1 4.8 - 10.8 K/mcL LAB HEMETOLOGY METHOD 08/15/2024 1:53 PM [facility] RBC 5.10 4.50 - 5.50 M/mcL LAB HEMETOLOGY METHOD 08/15/2024 1:53 PM [facility] Hemoglobin 11.0(L) 13.5 - 17.5 g/dL LAB HEMETOLOGY METHOD 08/15/2024 1:53 PM [facility] Hematocrit 38.0(L) 42.0 - 54.0 % LAB HEMETOLOGY METHOD 08/15/2024 1:53 PM [facility] MCV 75.1(L) 79.0 - 98.0 FL LAB HEMETOLOGY METHOD 08/15/2024 1:53 PM [facility] MCH 21.7(L) 27.0 - 32.0 pcg LAB HEMETOLOGY METHOD 08/15/2024 1:53 PM [facility] MCHC 28.9(L) 32.0 - 37.0 g/dL LAB HEMETOLOGY METHOD 08/15/2024 1:53 PM [facility] RDW 17.1(H) 11.0 - 15.0 % LAB HEMETOLOGY METHOD 08/15/2024 1:53 PM [facility] Platelets 283 130 - 400 K/mcL LAB HEMETOLOGY METHOD 08/15/2024 1:53 PM [facility] MPV 9.7 7.0 - 11.0 FL LAB HEMETOLOGY METHOD 08/15/2024 1:53 PM [facility] NRBC 0.0 <1.0 % LAB HEMETOLOGY METHOD 08/15/2024 1:53 PM [facility] NRBC Absolute 0.00 <0.10 K/mcL LAB HEMETOLOGY METHOD 08/15/2024 1:53 PM [facility] Neutrophils Relative 67.9 % LAB HEMETOLOGY METHOD 08/15/2024 1:53 PM [facility] Lymphocytes Relative 13.7 % LAB HEMETOLOGY METHOD 08/15/2024 1:53 PM [facility] Monocytes Relative 12.0 % LAB HEMETOLOGY METHOD 08/15/2024 1:53 PM [facility] Eosinophils Relative 5.2 % LAB HEMETOLOGY METHOD 08/15/2024 1:53 PM [facility] Basophils Relative 0.6 % LAB HEMETOLOGY METHOD 08/15/2024 1:53 PM [facility] Immature Granulocytes Relative 0.6 % LAB HEMETOLOGY METHOD 08/15/2024 1:53 PM [facility] Neutrophils Absolute 5.49 1.50 - 7.00 K/mcL LAB HEMETOLOGY METHOD 08/15/2024 1:53 PM [facility] Lymphocytes Absolute 1.11 1.00 - 5.00 K/mcL LAB HEMETOLOGY METHOD 08/15/2024 1:53 PM [facility] Monocytes Absolute 0.97 0.20 - 1.00 K/mcL LAB HEMETOLOGY METHOD 08/15/2024 1:53 PM [facility] Eosinophils Absolute 0.42 0.00 - 0.50 K/mcL LAB HEMETOLOGY METHOD 08/15/2024 1:[address] [facility] Basophils Absolute 0.05 0.00 - 0.20 K/[facility] LAB HEMETOLOGY METHOD 08/15/2024 1:[address] [facility] Immature Granulocytes Absolute 0.05(H) 0.00 - 0.03 K/[facility] LAB HEMETOLOGY METHOD 08/15/2024 1:[address] [facility] Blood Blood sample taken from central line / Unknown Venipuncture / Unknown 08/15/2024 1:24 PM EST 08/15/2024 1:41 PM EST Adal Goldstein MD LAB BLOOD O RDERABLES Performing Organization Address [facility]/ZIP Co de Phone Number [facility] [address] [place] [address], * Thyroxine free (08/15/2024 1:24 PM EST) Free T4 0.86 0.70 - 1.80 ng/dL LAB CHEMISTRY METHOD 08/15/2024 2:[address] [facility] Blood Blood sample taken from central line / Unknown Venipuncture / Unknown 08/15/2024 1:24 PM EST 08/15/2024 1:41 PM EST Adal Goldstein MD LAB BLOOD O RDERABLES Performing Organization Address City/[facility]/ZIP Co de Phone Number [facility] [address] [place] [address], * (ABNORMAL) TSH (08/15/2024 1:24 PM EST) TSH 7.75(H) 0.40 - 4.00 mcIU/mL LAB CHEMISTRY METHOD 08/15/2024 2:[address] [facility] Blood Blood sample taken from central line / Unknown Venipuncture / Unknown 08/15/2024 1:24 PM EST 08/15/2024 1:41 PM EST Adal Goldstein MD LAB BLOOD O RDERABLES [facility] [address] [place] [address], * (ABNORMAL) Comprehensive metabolic panel (08/15/2024 1:24 PM EST) Sodium 131(L) 133 - 145 mmol/L LAB CHEMISTRY METHOD 08/15/2024 2:21 PM [facility] Potassium 4.9 3.5 - 5.5 mmol/L LAB CHEMISTRY METHOD 08/15/2024 2:21 PM [facility] Chloride 96 96 - 110 mmol/L LAB CHEMISTRY METHOD 08/15/2024 2:21 PM [facility] CO2 32 21 - 32 mmol/L LAB CHEMISTRY METHOD 08/15/2024 2:21 PM [facility] Anion Gap 3 3 - 11 LAB CHEMISTRY METHOD 08/15/2024 2:21 PM [facility] Glucose 321(H) 70 - 100 mg/dL LAB CHEMISTRY METHOD 08/15/2024 2:21 PM [facility] BUN 13 5 - 25 mg/dL LAB CHEMISTRY METHOD 08/15/2024 2:21 PM [facility] Creatinine 0.71 0.70 - 1.30 mg/dL LAB CHEMISTRY METHOD 08/15/2024 2:21 PM [facility] eGFR 108 >=60 mL/min/1. 73m2 LAB CHEMISTRY METHOD 08/15/2024 2:21 PM [facility] Comment:Calculation based on the??Chronic Kidney Disease Epidemiology Collaboration (CKD-EPI) equation refit??without adjustment for race. BUN/Creatinine Ratio 18.3 LAB CHEMISTRY METHOD 08/15/2024 2:21 PM [facility] Calcium 8.7 8.5 - 10.5 mg/dL LAB CHEMISTRY METHOD 08/15/2024 2:21 PM [facility] AST (SGOT) 34 10 - 42 unit/L LAB CHEMISTRY METHOD 08/15/2024 2:21 PM [facility] ALT (SGPT) 36 10 - 60 unit/L LAB CHEMISTRY METHOD 08/15/2024 2:21 PM [facility] Alkaline Phosphatase 111 42 - 121 unit/L LAB CHEMISTRY METHOD 08/15/2024 2:21 PM [facility] Total Protein 7.1 6.0 - 8.0 g/dL LAB CHEMISTRY METHOD 08/15/2024 2:21 PM [facility] Albumin 2.7(L) 3.2 - 5.0 g/dL LAB CHEMISTRY METHOD 08/15/2024 2:21 PM [facility] Total Bilirubin 0.3 0.0 - 1.4 mg/dL LAB CHEMISTRY METHOD 08/15/2024 2:21 PM [facility] Blood Blood sample taken from central line / Unknown Venipuncture / Unknown 08/15/2024 1:24 PM EST 08/15/2024 1:41 PM EST [facility] LAB BLOOD O RDERABLES [facility] [address] [place] [address], documented in this encounter Visit Diagnoses Diagnosis Hepatocellular carcinoma (CMS/HCC) Malignant neoplasm of liver, primary 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
--- OUTSIDE RECORDS SUMMARY | 2024-08-27 14:49 | XMS_ITS ---
Author Organization 175 [facility] Address [address] [place] [address] Phone Care Team Providers Care Geotechnical Engineering Technician Name Role Phone Oralia Palomino MD Primary Care Provider [phone] Active Problems Problem Noted Date Diagnosed Date [...] Failed SVR. 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) Treatment Medications Current Day (Day 1 , Cycle 1 - Planned for 08/16/2024) Next Day (Day 1, Cycle 2 - Planned for 09/05/2024) pembrolizumab (KEYTRUDA)pembrolizumab (KEYTRUDA) chemo IVPB (adult) pembrolizumab (KEYTRUDA) 200 mg in sodium chloride 108 mL chemo IVPB pembrolizumab (KEYTRUDA) 200 mg in sodium chloride 108 mL chemo IVPB Past Plans Oncology Treatment Plan Name Start Date Discontinue Date Treatment Medications Discontinue Reason Plan Provider Cycles Atezolizumab + Bevacizumab 4 08/15/2024 atezolizumab (TECENTRIQ) chemo IVPBbevacizumab -bvzr (ZIRABEV) chemo IVPBbevacizumab -bvzr biosimilar (ZIRABEV) Toxicity/Comp lication Adal Ludwig MD 2 of 9 cycles started Radiation Treatments * No radiation treatments are documented for this patient in [facility]. Treatments may have been administered in another system. Lifetime Dose Tracking * Chemical Lifetime Dose Automatic Entry Manual Entr y Fluoro Time 15.1 minutes 15.1 minutes 0 minutes Dose Area Product 250 mGy-cm2 250 mGy-cm2 0 mGy-cm2
--- OUTSIDE RECORDS SUMMARY | 2024-08-27 14:49 | XMS_ITS | Encounter Summary ---
Author Organization [facility] Address [address] [place] [address] Care Team Providers Care Clinic Lead Name Role Phone Oralia Palomino MD Primary Care Provider [phone] Encounter Details Date Type Department Care Team (Late st Contact Info) Description 08/15/2024 Telephone [facility] Hematology Oncology [address] [place] [address] Adal Goldstein MD [address] [place] [phone] Social History Tobacco Use Types Packs/Day Years [...] your loved ones. For example, child support case officer or elderly care for an older adult? [...] as of this encounter Progress Notes * Susanna Elizondo - 08/15/2024 1:05 PM EST When booking patient's 3wk, it appears that it lands on 09/05. Patient seeking morning appt, day is completely booked. Seeking assistance in booking, thank you documented in this encounter Plan of Treatment Upcoming Encounters Date Type Department Care Team (Late st Contact Info) Description 09/03/2024 9:15 AM EST Consult General Surgery - [place] [address] [phone] Mitchel Crisostomo, DO [address] [address] 09/04/2024 9:00 AM EST Appointment [facility] [address] [place] [phone] 09/05/2024 10:30 AM EST Office Visit [facility] Hematology Oncology [address] [place] [phone] Adal Goldstein MD [address] [place] [phone] 09/05/2024 11:00 AM EST Appointment [facility] [address] [place] [phone] 09/05/2024 2:00 PM EST Office Visit Infectious Disease [facility] 175 [facility] [address] [place] [address] Bridgette Correa MD [address] [address] documented as of this encounter Visit Diagnoses Not on filedocumented in this encounter Care Teams Clinic Lead Relationship Specialty Start Date End Date Oralia Palomino MD [address] [place] [address] PCP - General 11/23/23 documented as of this encounter
--- OUTSIDE RECORDS SUMMARY | 2024-08-27 14:50 | XMS_ITS | Encounter Summary ---
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 Role Phone Oralia Palomino MD Primary Care Provider [phone] Reason for Visit * Reason Comments Testicle Pain Testicular pain swel ling 2 * Auth/Cert (Routine) Specialty Diagnoses / Procedures Referred By Rosaline t Referred To Contact Diagnoses Cellulitis of scrotum Anasarca Procedures [facility] IP/OBS CARE INITIAL MODERATE LEVEL PER DAY Vitaliy Cantu MD [address] [place] [phone] [facility] [address] [address] Referral ID Status Reason Start Date Expiration Date Visits Re quested Visits Authorized [id number] 1 1 Encounter Details Date Type Department Care Team (Late st Contact Info) Description 07/30/2024 2:01 AM EST - 08/06/2024 3:54 PM [facility] Hospital Encounter [facility] [address] [place] [address] Vitaliy Cantu MD [address] [place] [address] Ruddy Carrero MD [address] [place] [address] Junior Billings MD [address] [place] [address] Cellulitis of scrotum (Primary Dx); Anasarca Discharge Disposition: Home or Self Care Social [...] for your loved ones. For example, child development specialist or elderly care for an older [...] Sign Reading Time Taken Comments Blood Pressure 136/78 08/06/2024 7:46 AM EST Pulse 75 08/06/2024 7:46 AM EST Temperature 36.3 ??C (97.3 ??F) 08/06/2024 7:46 AM ES T Respiratory Rate 18 08/06/2024 7:46 AM EST Oxygen Saturation 94% 08/06/2024 7:46 AM EST Inhaled Oxygen Concentration - - Weight 132 kg (290 lb 6.4 oz) 08/06/2024 3:05 AM EST Height 188 cm (6' 2.02 ) 07/30/2024 5:35 AM EST Body Mass Index 37.27 07/30/2024 5:35 AM EST documented in this [...] No 06/28/2024 documented as of this encounter Discharge Summaries * Ruddy Carrero MD - 08/06/2024 10:47 AM EST Images from the original note were not included. [facility] DISCHARGE SUMMARY Patient Information Victor Manuel Cole : 1970 [54 y.o.] Admitting Provider Vitaliy Cantu MD Discharge Provider Ruddy Carrero MD, Ruddy Carrero MD Primary Care Physician Oralia Palomino MD Admission Date 07/30/2024 Discharge Date 08/06/2024 Summary of Hospital Problems Primary Discharge Diagnosis: Anasarca Secondary Discharge Diagnosis: Liver cancer Discharge Destination: home Code Status at Discharge: Full Code - Default Hospital Course Summary LOS: 7 days H&P as on 07/30/2024 This is a 54-year-old obese and smoker man who has a past medical history significant for type 2 diabetes mellitus with neuropathy, metastatic hepatocellular carcinoma diagnosed in the Spring 2023 during episode of gallstone pancreatitis, who is being followed by [facility] and is getting immunotherapy (Avastin / Tecentriq)...presented to the ED complaining of > 2 weeks of worsening of scrotal swelling associated with some discomfort. He denies any fever, chills, nausea, vomiting, diarrhea, abdominal pain, chest pain or shortness of breath at rest. He also says that has had some difficulty urinating, but no dysuria or hematuria. Of note, he was admitted here at [facility] last month (06/18/24 through 06/22/24) with a presumed case of scrotal cellulitis, which was treated with broad spectrum antibiotics (Vancomycin & Ceftriaxone) and then d/c home on Amoxicillin & Bactrim; but about 1 week later, while still taking theseantibiotics, he came back to ED with lip swelling. It was thought this may be a case of angioedema a nd was treated with systemic steroids and H2 blockers. It was felt ACEI was the culprit of this acute event and was stopped. Both Amoxicillin & Bactrim were also switched to Doxycycline, which hefinished 3-4 weeks ago. Hospital course Patient is 54 years old male with past medical history significant for type 2 diabetes mellitus, hepatocellular carcinoma, presented to the ED with complaints of scrotal swelling with associated discomfort. Patient was recently admitted last month for scrotal cellulitis, treated with broad-spectrumantibiotics and subsequently discharged on oral antibiotics. Patient subsequently had developed lipswelling, came to the ED and was suspected to have angioedema, treated with systemic steroids and H2 blockers. Patient's NOY inhibitor was stopped after this episode and patient's antibiotics were switched to doxycycline which he finished 3 to 4 weeks ago. Patient now currently admitted for furthermanagement of scrotal swelling. # Anasarca with scrotal edema in the setting of hepatocellular carcinoma. -Patient has diffuse lower extremity, scrotal swelling -Echocardiogram completed showed ejection fraction 60 to 65%. No hemodynamically significant valve disease noted. Ultrasound duplex lower extremity showed no evidence of DVT. -Ultrasound scrotum showed diffuse bilateral scrotal wall thickening and edema. Small bilateral hydroceles noted. Testicles and epididymis are within normal limits. -Urinalysis showed no bacteria. Urine protein elevated 100. -Patient managed with IV Lasix and spironolactone. Monitored intake and output closely. Fluid restriction 1500 mL/day, sodium restriction. -Interventional radiologist attempted drainage of the hepatic abscess, but no return of any fluid or pus noted. Likely hepatic mass given the history of hepatocellular carcinoma. Patient seen with oncologist, planning for immunotherapy again in the future. -Patient had significant improvement with IV diuresis and attempted transition to oral Lasix, patient developed lip swelling after taking oral Lasix dose. Will hold off on oral Lasix for now. Upon DCwill continue spironolactone 50 twice daily and patient can resume hydrochlorothiazide after checking BMP in 5 days if sodium level is improving. Patient is to follow-up with PCP regarding this. Strict fluid, salt restriction advised. Patient expressed understanding. # Hypomagnesemia, likely from poor oral intake -Received magnesium replacement, magnesium 1.9 on the day of discharge. # Hyponatremia -Sodium 131 today. Patient is on hydrochlorothiazide at home. Instructed patient to hold hydrochlorothiazide for now, repeat BMP in 5 days and can resume hydrochlorothiazide if sodium level improved.Recommend fluid restriction. # Type 2 diabetes mellitus -Hemoglobin A1c 8.2. Patient to continue insulin Levemir, lispro, home regimen upon DC. Patient wasmanaged with insulin while in the hospital. Patient to follow strict diabetic diet and did close follow-up with PCP for further management of diabetes. # Hypothyroidism -Continue levothyroxine 100 mcg p.o. daily. # Nicotine dependence Patient is a chronic active smoker, on nicotine patch. # Disposition Home, self-care Total time spent 35 thanks minutes doing chart review, interviewing patient, gathering information,performing physical exam, formulating plan, explaining management plan to patient,, coordinating care with RN, documentation and placing orders. This dictation was performed using voice recognition software. Word substitution may have occurred and may have gone unnoticed and uncorrected Follow-Up Instructions and Recommendations Oralia Palomino MD [address] [place] [address] Schedule an appointment as soon as possible for a visit in 3 day(s) for transition of care visit, If symptoms worsen, As needed Discharge Procedure Orders Basic metabolic panel Standing Status: Future Standing Exp. Date: 08/06/25 Order Comments: Follow up with primary doctor Discharge Diet: Cardiac Heart Healthy Diet (Low Cholesterol / Low Fat / No Added Salt); 2000 mL perday Order Comments: No carbonated drinks Order Specific Question Answer Comments Discharge diet you should follow at home Cardiac Heart Healthy Diet (Low Cholesterol / Low Fat / NoAdded Salt) Restrict your fluid intake to 2000 mL per day Additional Medication Discharge Instructions Order Comments: Can resume hydrochlorothiazide if sodium level is improved in your repeat blood test in 5 days. Pls follow up with your primary doctor reg this. There are no outpatient Patient Instructions on file for this admission. Discharge Medications Your medication list START taking these medications Instructions Last Dose Given Next Dose Due magnesium oxide 400 mg (241.3 elemental magnesium) tablet Commonly known as: MAG-OX Take 1 tablet (400 mg total) by mouth 2 (two) times a day for 10 days. senna 8.6 mg tablet Commonly known as: SENOKOT Take 1 tablet (8.6 mg total) by mouth 2 (two) times a day if needed for constipation. spironolactone 50 mg tablet Commonly known as: ALDACTONE Take 1 tablet (50 mg total) by mouth 2 (two) times a day with meals. CHANGE how you take these medications Instructions Last Dose Given Next Dose Due levothyroxine 50 mcg tablet Commonly known as: SYNTHROID, LEVOTHROID What changed: how much to take Take 1 tablet (50 mcg total) by mouth 1 (one) time each day before breakfast. CONTINUE taking these medications Instructions Last Dose Given Next Dose Due albuterol HFA 90 mcg/actuation inhaler Commonly known as: PROAIR HFA ; PROVENTIL HFA ; VENTOLIN HFA Inhale 2 puffs by mouth every 6 (six) hours if needed for wheezing. aspirin 81 mg EC tablet Take 1 tablet (81 mg total) by mouth 1 (one) time each day. gabapentin 400 mg capsule Commonly known as: NEURONTIN Take 1 capsule (400 mg total) by mouth 3 (three) times a day. insulin lispro 100 unit/mL injection pen Commonly known as: HumaLOG KwikPen 2-4 Units 3 (three) times a day before meals. Levemir FlexPen 100 unit/mL (3 mL) injection pen Generic drug: insulin detemir Infuse 4-6 Units into a venous catheter 1 (one) time each day. melatonin 3 mg tablet Take 2 tablets (6 mg total) by mouth at bedtime. nicotine 7 mg/24 hr Commonly known as: NICODERM CQ Place 1 patch on the skin 1 (one) time each day at the same time. triamcinolone 0.1 % ointment Commonly known as: KENALOG Apply 1 Application topically 2 times daily. STOP taking these medications hydroCHLOROthiazide 12.5 mg tablet lisinopril-hydroCHLOROthiazide 10-12.5 mg per tablet Commonly known as: PRINZIDJosee,ZESTORETIC Where to Get Your Medications These medications were sent to [facility]/pharmacy #[id number] - [place], [place] - [phone] [facility] [phone] [place] [id number] Hours: 24-hours levothyroxine 50 mcg tablet magnesium oxide 400 mg (241.3 elemental magnesium) tablet senna 8.6 mg tablet spironolactone 50 mg tablet Physical Exam at time of Discharge Physical Exam Constitutional: General: He is not in acute distress. Appearance: Normal appearance. He is not ill-appearing, toxic-appearing or diaphoretic. HENT: Head: Normocephalic and atraumatic. Mouth/Throat: Mouth: Mucous membranes are moist. Eyes: Conjunctiva/sclera: Conjunctivae normal. Cardiovascular: Rate and Rhythm: Normal rate and regular rhythm. Pulses: Normal pulses. Heart sounds: Normal heart sounds. Pulmonary: Effort: Pulmonary effort is normal. No respiratory distress. Breath sounds: Normal breath sounds. No wheezing. Abdominal: General: Bowel sounds are normal. There is no distension. Palpations: Abdomen is soft. Tenderness: There is no abdominal tenderness. Musculoskeletal: General: No swelling. Normal range of motion. Skin: General: Skin is warm. Neurological: General: No focal deficit present. Mental Status: He is alert. Mental status is at baseline. Motor: No weakness. Psychiatric: Mood and Affect: Mood normal. Behavior: Behavior normal. Vitals Visit Vitals BP 136/78 (BP Location: Left arm, Patient Position: Lying) Pulse 75 Temp 36.3 ??C (97.3 ??F) (Temporal) Resp 18 Temp (24hrs), Av.5 ??C (97.7 ??F), Min:36.3 ??C (97.3 ??F), Max:36.8 ??C (98.2 ??F) Body mass index is 37.27 kg/m??. No results found for: PTWT , PTHT documented in this encounter Discharge Instructions * Attachments The following attachments cannot be sent through Care Everywhere. * Fluid Restriction (Montserratian) documented in this encounter Medications at Time of Discharge Medication Sig Dispensed Refills Start Date End Date albuterol HFA (PROAIR HFA ; PROVENTIL HFA ; VENTOLIN HFA) 90 mcg/actuation inhaler Inhale 2 puffs by mouth every 6 (six) hours if needed for wheezing. aspirin 81 mg EC tablet Take 1 tablet (81 mg total) by mouth 1 (one) time each day. gabapentin (NEURONTIN) 400 mg capsule Take 1 [...] 1 Application topically 2 times daily. 07/03/2024 magnesium oxide (MAG-OX) 400 mg (241.3 elemental magnesium) tablet Take 1 tablet (400 mg total) by mouth 2 (two) times a day for 10 days. 20 each 08/05/2024 08/15/2024 documented as of this encounter Ordered Prescriptions Prescription Sig Dispensed Refills Start Date End Da te spironolactone (ALDACTONE) 50 mg tablet Take 1 tablet (50 mg total) by mouth 2 (two) times a day with meals. 60 each 08/05/2024 09/04/2024 senna (SENOKOT) 8.6 mg tablet Take 1 tablet (8.6 mg total) by mouth 2 (two) times a day if needed for constipation. 60 each 08/05/2024 09/04/2024 magnesium oxide (MAG-OX) 400 mg (241.3 elemental magnesium) tablet Take 1 tablet (400 mg total) by mouth 2 (two) times a day for 10 days. 20 each 08/05/2024 08/15/2024 documented in this encounter Discharge Disposition Disposition Code Departure Means Destination Comment s Home or Self Care Walk-out documented in this encounter Progress Notes * Tasneem Medina RN - 08/06/2024 2:21 PM EST 08/06/24 1421 Transportation Transportation at discharge Family What day is the transport expected? 08/06/24 Final Discharge Disposition Home or Self Care Pt d/c home self care * Ruddy Carrero MD - 08/06/2024 2:12 PM EST To whomsoever it may concern This is to inform that Mr. Victor Manuel Cole, date of 1970 was in the [facility] from 07/30/2024 and got discharged on 08/06/2024. Patient can resume work without restrictions on08/09/2024. * Seble Lora RN - 08/06/2024 12:50 PM EST Problem: Sensory: Acute Pain Goal: Pain level will improve or be tolerable Outcome: Adequate for Discharge Goal: Ability to develop a pain control plan will improve Outcome: Adequate for Discharge Problem: Cognitive: Acute Pain Goal: Expressions of feelings of enhanced comfort will increase Outcome: Adequate for Discharge Problem: Patient Specific Problem: Acute Pain Goal: Patient Specific Outcome Outcome: Adequate for Discharge Problem: Cognitive: Infection Risk of Goal: Understanding of ways to prevent infection will improve Outcome: Adequate for Discharge Problem: Physical Regulation:Infection Risk Of Goal: Will remain free from infection Outcome: Adequate for Discharge Problem: Skin Integrity:Infection Risk Of Goal: Demonstrates signs of wound healing without infection Outcome: Adequate for Discharge Problem: Patient Specific Problem:Infection Risk of Goal: Patient Specific Outcome Outcome: Adequate for Discharge Goals: Clinical Goals for the Shift: pain relief Identify possible barriers to meeting goals/advancing plan of care: Waiting on bowel function. Stability of the patient: Moderately Stable - Low risk of patient condition declining or worsening End of Shift Summary: Patient resting comfortably. * Ruddy Carrero MD - 08/06/2024 10:46 AM EST H&P as on 07/30/2024 This is a 54-year-old obese and smoker man who has a past medical history significant for type 2 diabetes mellitus with neuropathy, metastatic hepatocellular carcinoma diagnosed in the Spring 2023 during episode of gallstone pancreatitis, who is being followed by [facility] and is getting immunotherapy (Avastin / Tecentriq)...presented to the ED complaining of > 2 weeks of worsening of scrotal swelling associated with some discomfort. He denies any fever, chills, nausea, vomiting, diarrhea, abdominal pain, chest pain or shortness of breath at rest. He also says that has had some difficulty urinating, but no dysuria or hematuria. Of note, he was admitted here at [facility] last month (06/18/24 through 06/22/24) with a presumed case of scrotal cellulitis, which was treated with broad spectrum antibiotics (Vancomycin & Ceftriaxone) and then d/c home on Amoxicillin & Bactrim; but about 1 week later, while still taking theseantibiotics, he came back to ED with lip swelling. It was thought this may be a case of angioedema a nd was treated with systemic steroids and H2 blockers. It was felt ACEI was the culprit of this acute event and was stopped. Both Amoxicillin & Bactrim were also switched to Doxycycline, which hefinished 3-4 weeks ago. Hospital course Patient is 54 years old male with past medical history significant for type 2 diabetes mellitus, hepatocellular carcinoma, presented to the ED with complaints of scrotal swelling with associated discomfort. Patient was recently admitted last month for scrotal cellulitis, treated with broad-spectrumantibiotics and subsequently discharged on oral antibiotics. Patient subsequently had developed lipswelling, came to the ED and was suspected to have angioedema, treated with systemic steroids and H2 blockers. Patient's NOY inhibitor was stopped after this episode and patient's antibiotics were switched to doxycycline which he finished 3 to 4 weeks ago. Patient now currently admitted for furthermanagement of scrotal swelling. # Anasarca with scrotal edema in the setting of hepatocellular carcinoma. -Patient has diffuse lower extremity, scrotal swelling -Echocardiogram completed showed ejection fraction 60 to 65%. No hemodynamically significant valve disease noted. Ultrasound duplex lower extremity showed no evidence of DVT. -Ultrasound scrotum showed diffuse bilateral scrotal wall thickening and edema. Small bilateral hydroceles noted. Testicles and epididymis are within normal limits. -Urinalysis showed no bacteria. Urine protein elevated 100. -Patient managed with IV Lasix and spironolactone. Monitored intake and output closely. Fluid restriction 1500 mL/day, sodium restriction. -Interventional radiologist attempted drainage of the hepatic abscess, but no return of any fluid or pus noted. Likely hepatic mass given the history of hepatocellular carcinoma. Patient seen with oncologist, planning for immunotherapy again in the future. -Patient had significant improvement with IV diuresis and attempted transition to oral Lasix, patient developed lip swelling after taking oral Lasix dose. Will hold off on oral Lasix for now. Upon DCwill continue spironolactone 50 twice daily and patient can resume hydrochlorothiazide after checking BMP in 5 days if sodium level is improving. Patient is to follow-up with PCP regarding this. Strict fluid, salt restriction advised. Patient expressed understanding. # Hypomagnesemia, likely from poor oral intake -Received magnesium replacement, magnesium 1.9 on the day of discharge. # Hyponatremia -Sodium 131 today. Patient is on hydrochlorothiazide at home. Instructed patient to hold hydrochlorothiazide for now, repeat BMP in 5 days and can resume hydrochlorothiazide if sodium level improved.Recommend fluid restriction. # Type 2 diabetes mellitus -Hemoglobin A1c 8.2. Patient to continue insulin Levemir, lispro, home regimen upon DC. Patient wasmanaged with insulin while in the hospital. Patient to follow strict diabetic diet and did close follow-up with PCP for further management of diabetes. # Hypothyroidism -Continue levothyroxine 100 mcg p.o. daily. # Nicotine dependence Patient is a chronic active smoker, on nicotine patch. # Disposition Home, self-care Total time spent 35 thanks minutes doing chart review, interviewing patient, gathering information,performing physical exam, formulating plan, explaining management plan to patient,, coordinating care with RN, documentation and placing orders. This dictation was performed using voice recognition software. Word substitution may have occurred and may have gone unnoticed and uncorrected * Rosaline Shea RN - 08/06/2024 2:23 AM EST Problem: Sensory: Acute Pain Goal: Pain level will improve or be tolerable Outcome: Progressing Goal: Ability to develop a pain control plan will improve Outcome: Progressing Goals: Clinical Goals for the Shift: pain relief Identify possible barriers to meeting goals/advancing plan of care: continue diuretics/constipation Stability of the patient: Moderately Stable - Low risk of patient condition declining or worsening End of Shift Summary: restful vss no c/o * Junior Billings MD - 08/05/2024 2:43 PM EST Patient developed upper lip swelling after taking oral Lasix dose. No wheezing, breathing is normal, chest clear. I will stop p.o. Lasix and give Benadryl. * Junior Billings MD - 08/05/2024 9:50 AM EST Images from the original note were not included. [facility]SE PROGRESS NOTE Date: 08/05/2024 Author: Junior Billings MD Patient ID: Victor Manuel Cole is a 54 y.o. male : 1970 MR#: [id number] ASSESSMENT & PLAN Assessment/Plan Principal Problem: Leila Cole is a 54 y.o. male who has PMH of diabetes mellitus, hepatocellular carcinoma. Patient presented to ED with bilateral leg swelling severe scrotal swelling. Patient was treated with antibiotic for scrotal cellulitis 1 month ago. 1. Anasarca Patient's bilateral leg swelling and scrotal swelling has improved. I will switch to po Lasix and spironolactone. TTE showed preserved EF 60-65%, venous Doppler showed no DVT lower extremities. Scrotum ultrasound showed diffuse bilateral scrotal wall thickening and edema with small bilateral hydroceles. 2. Hepatic lesion/hepatocellular carcinoma Patient had attempted aspiration of hepatic abscess by IR but no pus or fluid obtained. 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 Oncology is planning for immunotherapy in the future. 3. Hypomagnesemia Magnesium improved to 1.9. Continue with p.o. magnesium oxide. 4. Hyponatremia Patient has hypervolemic hyponatremia. Sodium stable at 131. SUBJECTIVE Subjective No events overnight. Patient is feeling better. Leg swelling has all but disappeared and scrotal swelling has improved. He denies chest pain, shortness of breath, nausea, vomit, fever, chills. Allergies Lisinopril Current Medications: alteplase, 2 mg, intra-catheter, Once aspirin, 81 mg, oral, Daily furosemide, 40 mg, intravenous, BID 04-17 gabapentin, 400 mg, oral, TID insulin glargine, 10 Units, subcutaneous, q AM insulin lispro, 2-12 Units, subcutaneous, Before meals & nightly levothyroxine, 100 mcg, oral, q AM AC magnesium oxide, 400 mg, oral, BID melatonin, 6 mg, oral, Nightly nicotine, 1 patch, transdermal, Daily senna, 1 tablet, oral, BID sodium chloride, 10 mL, intravenous, BID spironolactone, 50 mg, oral, BID with meals PRN medications: acetaminophen, albuterol, dextrose 50%, dextrose 50%, dextrose, dextrose, glucagoninjection, magnesium hydroxide, naloxone, ondansetron, oxyCODONE, polyetheylene glycol, Insert peripheral IV AND Maintain IV access AND Saline lock IV AND sodium chloride AND sodium chloride OBJECTIVE Vitals: 08/04/24 2020 08/05/24 0300 08/05/24 0558 08/05/24 0751 BP: 135/84 (!) 132/90 (!) 149/91 BP Location: Left arm Left arm;Upper Patient Position: Lying Pulse: 89 77 77 Resp: 18 16 15 Temp: 36.4 ??C (97.6 ??F) 36 ??C (96.8 ??F) 36.5 ??C (97.7 ??F) TempSrc: Temporal Temporal Oral SpO2: 97% 96% 97% Weight: 131 kg (289 lb 6.4 oz) 131 kg (289 lb 6.4 oz) Height: Physical Exam Vitals and nursing note reviewed. Constitutional: Appearance: Normal appearance. He is obese. HENT: Head: Normocephalic. Nose: Nose normal. Eyes: Extraocular Movements: Extraocular movements intact. Pupils: Pupils are equal, round, and reactive to light. Cardiovascular: Rate and Rhythm: Normal rate and regular rhythm. Pulmonary: Effort: Pulmonary effort is normal. No respiratory distress. Breath sounds: No wheezing or rales. Abdominal: General: Bowel sounds are normal. There is no distension. Tenderness: There is no abdominal tenderness. There is no guarding. Genitourinary: Comments: Diffuse scrotal swelling Musculoskeletal: Right lower leg: No edema. Left lower leg: No edema. Skin: General: Skin is warm and dry. Neurological: General: No focal deficit present. Mental Status: He is alert. Mental status is at baseline. LABS HEMATOLOGY Lab Results Component Value Date WBC 8.1 08/02/2024 HGB 11.5 (L) 08/02/2024 HCT 38.9 (L) 08/02/2024 MCV 73.5 (L) 08/02/2024 PLT 208 08/02/2024 CHEMISTRY Lab Results Component Value Date GLUCOSE 135 (H) 08/05/2024 NA 131 (L) 08/05/2024 K 4.1 08/05/2024 CO2 34 (H) 08/05/2024 CL 93 (L) 08/05/2024 BUN 16 08/05/2024 CREATININE 0.82 08/05/2024 EGFR 104 08/05/2024 CALCIUM 9.0 08/05/2024 MG 1.9 08/05/2024 PHOS 3.6 08/02/2024 ANIONGAP 4 08/05/2024 Recent Results (from the past 168 hour(s)) Blood Culture, Peripheral #2 Collection Time: 07/30/24 3:00 AM Specimen: Blood, Venous Result Value Ref Range Culture, Blood No growth at 5 days Blood Culture, Peripheral #1 Collection Time: 07/30/24 3:10 AM Specimen: Blood, Venous Result Value Ref Range Culture, Blood No growth at 5 days Imaging: IR Repair CVAD w Subq Port or Pump Attempted port revision Indication: Malpositioned right IJ port. Right IJ port is noted looped in the right neck. Fluoroscopic time: 15.1 minutes Informed written consent was obtained prior to the procedure. A application development consultant image of the right neck was obtained demonstrating redundant looping of the right IJ catheter. The right groin was prepped and draped in usual sterile fashion. Utilizing micropuncture technique access was obtained into the right common femoral vein. A wire was advanced centrally. A 6-Micronesian sheath was then advanced over the wire. Utilizing combination of 0.035 wires including a Mullins and Amplatz wires and angled 5-Micronesian Kumpe catheter and 5-Micronesian Brandi catheter multiple times were made to loop the catheters over the redundancy of the tubing and pull it into the superior vena cava.This was unsuccessful. Therefore a gooseneck snare was then advanced and the tip of the catheter was secured. The distal redundant loop could not be fully reduced, despite multiple attempts. The tip of the catheter was positioned at the IJ subclavian junction likely in the very upper portion of thesuperior vena cava. The port was accessed and contrast injection demonstrates patency of the port although blood returnwas not noted. I then advanced the catheter back into the right IJ and additional contrast injection was performeddemonstrating patency of the internal jugular vein. However the distal redundant loop appears to beextravascular. The sheath and catheters were removed and hemostasis was achieved. The port was flushed with heparinized saline and Deaccessed. Impression/plan: 1. Malpositioned right IJ port with distal loop redundancy likely extravascular. The tip remains intravascular and could be used if clinically necessary. 2. Ultimately, formal port resection and replacement is advised. This can be scheduled on an outpatient basis. 3. Right IJ and superior vena cava venogram 4. Mechanical snaring of an intravascular device with tip repositioning. -------- FINAL REPORT -------- Dictated By: Gerson Alvarze Dictated Date: 08/03/2024 18:43 ET Assigned Physician: Gerson Alvarez Reviewed and Electronically Signed By: Gerson Alvarez Signed Date: 08/03/2024 18:50 ET Workstation ID: [id number] Transcribed By: Self Edit Transcribed Date: 08/03/2024 18:43 ET DAILY CARE CHECKLIST Length of Stay: 04d 15h 56m VTE Prophylaxis: Enoxaparin Resuscitation: Full Code - Default IV Access: Chest port Tubes, Catheters, Devices: None PCP: Oralia Palomino MD Disposition: Continue with diuresis. Discharge on 08/06/2024. Junior Billings MD 08/05/24 9:50 AM EST * Rosaline Shea RN - 08/05/2024 12:47 AM EST Problem: Sensory: Acute Pain Goal: Pain level will improve or be tolerable Outcome: Progressing Goal: Ability to develop a pain control plan will improve Outcome: Progressing Goals: Clinical Goals for the Shift: pain relief Identify possible barriers to meeting goals/advancing plan of care: continue with iv lasix Stability of the patient: Moderately Stable - Low risk of patient condition declining or worsening End of Shift Summary: vss ad blayne walking in hallway pain controlled with po meds * Jessa Gallo RN - 08/04/2024 2:14 PM EST Problem: Sensory: Acute Pain Goal: Pain level will improve or be tolerable Outcome: Progressing Goal: Ability to develop a pain control plan will improve Outcome: Progressing Goals: scrotal edema will improve Identify possible barriers to meeting goals/advancing plan of care: pain Stability of the patient: Moderately Stable - Low risk of patient condition declining or worsening End of Shift Summary: Patient alert oriented VSS medicated for pain as needed ambulating on unit continues on IV lasix /1500 fluid restriction. No bm since 07/29 MD aware bowel medications ordered and given awaiting results. * Junior Billings MD - 08/04/2024 12:02 PM EST Images from the original note were not included. [facility] PROGRESS NOTE Date: 08/04/2024 Author: Junior Billings MD Patient ID: Victor Manuel Cole is a 54 y.o. male : 1970 MR#: [id number] ASSESSMENT & PLAN Assessment/Plan Principal Problem: Leila Cole is a 54 y.o. male who has PMH of diabetes mellitus, hepatocellular carcinoma. Patient presented to ED with bilateral leg swelling severe scrotal swelling. Patient was treated with antibiotic for scrotal cellulitis 1 month ago. 1. Anasarca Patient's bilateral leg swelling and scrotal swelling has improved. Continues on IV Lasix and spironolactone. TTE showed preserved EF 60-65%, venous Doppler showed no DVT lower extremities. Scrotum ultrasound showed diffuse bilateral scrotal wall thickening and edema with small bilateral hydroceles. 2. Hepatic lesion/hepatocellular carcinoma Patient had attempted aspiration of hepatic abscess by IR but no pus or fluid obtained. 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 Oncology is planning for immunotherapy in the future. 3. Hypomagnesemia Magnesium reduced at 1.7. Continue with magnesium oxide 400 mg twice daily. 4. Hyponatremia Patient has hypervolemic hyponatremia. Sodium improved to 133. Management as outlined above. SUBJECTIVE Subjective No events overnight. Patient is feeling better. Leg swelling has all but disappeared and scrotal swelling has improved. He denies chest pain, shortness of breath, nausea, vomit, fever, chills. Allergies Lisinopril Current Medications: alteplase, 2 mg, intra-catheter, Once aspirin, 81 mg, oral, Daily furosemide, 40 mg, intravenous, BID 04-17 gabapentin, 400 mg, oral, TID insulin glargine, 10 Units, subcutaneous, q AM insulin lispro, 2-12 Units, subcutaneous, TID AC levothyroxine, 100 mcg, oral, q AM AC magnesium oxide, 400 mg, oral, BID melatonin, 6 mg, oral, Nightly nicotine, 1 patch, transdermal, Daily senna, 1 tablet, oral, BID sodium chloride, 10 mL, intravenous, BID spironolactone, 50 mg, oral, BID with meals PRN medications: acetaminophen, albuterol, dextrose 50%, dextrose 50%, dextrose, dextrose, glucagoninjection, magnesium hydroxide, naloxone, ondansetron, oxyCODONE, polyetheylene glycol, Insert peripheral IV AND Maintain IV access AND Saline lock IV AND sodium chloride AND sodium chloride OBJECTIVE Vitals: 08/03/24 2037 08/04/24 0238 08/04/24 0600 08/04/24 0758 BP: 132/81 (!) 133/90 (!) 135/94 BP Location: Right arm Right arm Right arm Patient Position: Lying Lying Sitting Pulse: 100 78 86 Resp: 18 18 18 Temp: 36.7 ??C (98 ??F) 36.2 ??C (97.2 ??F) 36.8 ??C (98.2 ??F) TempSrc: Temporal Temporal Temporal SpO2: 91% 96% 95% Weight: 133 kg (293 lb 6.4 oz) Height: Physical Exam Vitals and nursing note reviewed. Constitutional: Appearance: Normal appearance. He is obese. HENT: Head: Normocephalic. Nose: Nose normal. Eyes: Extraocular Movements: Extraocular movements intact. Pupils: Pupils are equal, round, and reactive to light. Cardiovascular: Rate and Rhythm: Normal rate and regular rhythm. Pulmonary: Effort: Pulmonary effort is normal. No respiratory distress. Breath sounds: No wheezing or rales. Abdominal: General: Bowel sounds are normal. There is no distension. Tenderness: There is no abdominal tenderness. There is no guarding. Genitourinary: Comments: Diffuse scrotal swelling Musculoskeletal: Right lower leg: No edema. Left lower leg: No edema. Skin: General: Skin is warm and dry. Neurological: General: No focal deficit present. Mental Status: He is alert. Mental status is at baseline. LABS HEMATOLOGY Lab Results Component Value Date WBC 8.1 08/02/2024 HGB 11.5 (L) 08/02/2024 HCT 38.9 (L) 08/02/2024 MCV 73.5 (L) 08/02/2024 PLT 208 08/02/2024 CHEMISTRY Lab Results Component Value Date GLUCOSE 169 (H) 08/04/2024 NA 133 08/04/2024 K 4.0 08/04/2024 CO2 35 (H) 08/04/2024 CL 94 (L) 08/04/2024 BUN 17 08/04/2024 CREATININE 0.79 08/04/2024 EGFR 105 08/04/2024 CALCIUM 8.5 08/04/2024 MG 1.7 (L) 08/04/2024 PHOS 3.6 08/02/2024 ANIONGAP 4 08/04/2024 Recent Results (from the past 168 hour(s)) Blood Culture, Peripheral #2 Collection Time: 07/30/24 3:00 AM Specimen: Blood, Venous Result Value Ref Range Culture, Blood No growth at 5 days Blood Culture, Peripheral #1 Collection Time: 07/30/24 3:10 AM Specimen: Blood, Venous Result Value Ref Range Culture, Blood No growth at 5 days Imaging: IR Repair CVAD w Subq Port or Pump Attempted port revision Indication: Malpositioned right IJ port. Right IJ port is noted looped in the right neck. Fluoroscopic time: 15.1 minutes Informed written consent was obtained prior to the procedure. A application development consultant image of the right neck was obtained demonstrating redundant looping of the right IJ catheter. The right groin was prepped and draped in usual sterile fashion. Utilizing micropuncture technique access was obtained into the right common femoral vein. A wire was advanced centrally. A 6-Micronesian sheath was then advanced over the wire. Utilizing combination of 0.035 wires including a Mullins and Amplatz wires and angled 5-Micronesian Kumpe catheter and 5-Micronesian Brandi catheter multiple times were made to loop the catheters over the redundancy of the tubing and pull it into the superior vena cava. This was unsuccessful. Therefore a gooseneck snare was then advanced and the tip of the catheter wassecured. The distal redundant loop could not be fully reduced, despite multiple attempts. The tip of the catheter was positioned at the IJ subclavian junction likely in the very upper portion of the superior vena cava. The port was accessed and contrast injection demonstrates patency of the port although blood returnwas not noted. I then advanced the catheter back into the right IJ and additional contrast injection was performeddemonstrating patency of the internal jugular vein. However the distal redundant loop appears to beextravascular. The sheath and catheters were removed and hemostasis was achieved. The port was flushed with heparinized saline and Deaccessed. Impression/plan: 1. Malpositioned right IJ port with distal loop redundancy likely extravascular. The tip remains intravascular and could be used if clinically necessary. 2. Ultimately, formal port resection and replacement is advised. This can be scheduled on an outpatient basis. 3. Right IJ and superior vena cava venogram 4. Mechanical snaring of an intravascular device with tip repositioning. -------- FINAL REPORT -------- Dictated By: Gerson Alvarez Dictated Date: 08/03/2024 18:43 ET Assigned Physician: Gerson Alvarez Reviewed and Electronically Signed By: Gerson Alvarez Signed Date: 08/03/2024 18:50 ET Workstation ID: [id number] Transcribed By: Self Edit Transcribed Date: 08/03/2024 18:43 ET DAILY CARE CHECKLIST Length of Stay: 03d 18h 08m VTE Prophylaxis: Enoxaparin Resuscitation: Full Code - Default IV Access: Chest port Tubes, Catheters, Devices: None PCP: Oralia Palomino MD Disposition: Pending clinical improvement. Likely discharge within 48 hours Junior Billings MD 08/04/24 12:02 PM EST * Melissa Aparicio RN - 08/04/2024 4:35 AM EST Problem: Sensory: Acute Pain Goal: Pain level will improve or be tolerable Outcome: Progressing Goal: Ability to develop a pain control plan will improve Outcome: Progressing Problem: Cognitive: Acute Pain Goal: Expressions of feelings of enhanced comfort will increase Outcome: Progressing Problem: Patient Specific Problem: Acute Pain Goal: Patient Specific Outcome Outcome: Progressing Problem: Cognitive: Infection Risk of Goal: Understanding of ways to prevent infection will improve Outcome: Progressing Problem: Physical Regulation:Infection Risk Of Goal: Will remain free from infection Outcome: Progressing Problem: Skin Integrity:Infection Risk Of Goal: Demonstrates signs of wound healing without infection Outcome: Progressing Problem: Patient Specific Problem:Infection Risk of Goal: Patient Specific Outcome Outcome: Progressing Goals: Clinical Goals for the Shift: pain relief Identify possible barriers to meeting goals/advancing plan of care: Stability of the patient: Moderately Stable - Low risk of patient condition declining or worsening End of Shift Summary: Patient safety and comfort maintained through all night. Patient is in 1500mlfluid restriction take 150 ml with output of 1020 cc. Pain is medicated well. * Juliane Younger RN - 08/03/2024 4:36 PM EST CRISTINA: 08/04-08/05 Barrier: continues to require IV diuresis Plan: home self-care * Junior Billings MD - 08/03/2024 2:50 PM EST Images from the original note were not included. [facility] PROGRESS NOTE Date: 08/03/2024 Author: Junior Billings MD Patient ID: Victor Manuel Cole is a 54 y.o. male : 1970 MR#: [id number] ASSESSMENT & PLAN Assessment/Plan Principal Problem: Anasarca Victor Manuel Cole is a 54 y.o. male who has PMH of diabetes mellitus, hepatocellular carcinoma. Patient presented to ED with bilateral leg swelling severe scrotal swelling. Patient was treated with antibiotic for scrotal cellulitis 1 month ago. 1. Anasarca Patient's bilateral leg swelling and scrotal swelling has improved. Continues on IV Lasix and spironolactone. TTE showed preserved EF 60-65%, venous Doppler showed no DVT lower extremities. Scrotum ultrasound showed diffuse bilateral scrotal wall thickening and edema with small bilateral hydroceles. 2. Hepatic lesion/hepatocellular carcinoma Patient had attempted aspiration of hepatic abscess by IR but no pus or fluid obtained. 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 Oncology is planning for immunotherapy in the future. 3. Hypomagnesemia Magnesium reduced at 1.8. I will add magnesium oxide 400 mg twice daily. 4. Hyponatremia Patient is hypervolemic hyponatremia, sodium reduced at 132. Management as outlined above. SUBJECTIVE Subjective No events overnight. Patient continues to complain of scrotal swelling and mild swelling to both legs. He denies chest pain, shortness of breath, nausea, vomit, fever, chills. Allergies Lisinopril Current Medications: alteplase, 2 mg, intra-catheter, Once aspirin, 81 mg, oral, Daily furosemide, 40 mg, intravenous, BID 04-17 gabapentin, 400 mg, oral, TID insulin glargine, 10 Units, subcutaneous, q AM insulin lispro, 2-12 Units, subcutaneous, TID AC levothyroxine, 100 mcg, oral, q AM AC melatonin, 6 mg, oral, Nightly nicotine, 1 patch, transdermal, Daily sodium chloride, 10 mL, intravenous, BID spironolactone, 50 mg, oral, BID with meals PRN medications: acetaminophen, albuterol, dextrose 50%, dextrose 50%, dextrose, dextrose, glucagoninjection, magnesium hydroxide, naloxone, ondansetron, oxyCODONE, Insert peripheral IV AND Maintain IV access AND Saline lock IV AND sodium chloride AND sodium chloride OBJECTIVE Vitals: 08/03/24 0314 08/03/24 0555 08/03/24 0804 08/03/24 1439 BP: (!) 140/94 (!) 131/102 (!) 144/88 BP Location: Left arm Left arm Left arm Patient Position: Lying Sitting Lying Pulse: 77 78 82 Resp: 15 20 20 Temp: 36.1 ??C (97 ??F) 36.4 ??C (97.5 ??F) 36.4 ??C (97.5 ??F) TempSrc: Temporal Temporal Temporal SpO2: 97% 95% 96% Weight: 135 kg (297 lb 8 oz) Height: Physical Exam Vitals and nursing note reviewed. Constitutional: Appearance: Normal appearance. He is obese. HENT: Head: Normocephalic. Nose: Nose normal. Eyes: Extraocular Movements: Extraocular movements intact. Pupils: Pupils are equal, round, and reactive to light. Cardiovascular: Rate and Rhythm: Normal rate and regular rhythm. Pulmonary: Effort: Pulmonary effort is normal. No respiratory distress. Breath sounds: No wheezing or rales. Abdominal: General: Bowel sounds are normal. There is no distension. Tenderness: There is no abdominal tenderness. There is no guarding. Genitourinary: Comments: Diffuse scrotal swelling Musculoskeletal: Right lower leg: Edema present. Left lower leg: Edema present. Skin: General: Skin is warm and dry. Neurological: General: No focal deficit present. Mental Status: He is alert. Mental status is at baseline. LABS HEMATOLOGY Lab Results Component Value Date WBC 8.1 08/02/2024 HGB 11.5 (L) 08/02/2024 HCT 38.9 (L) 08/02/2024 MCV 73.5 (L) 08/02/2024 PLT 208 08/02/2024 CHEMISTRY Lab Results Component Value Date GLUCOSE 154 (H) 08/03/2024 NA 132 (L) 08/03/2024 K 4.0 08/03/2024 CO2 33 (H) 08/03/2024 CL 95 (L) 08/03/2024 BUN 15 08/03/2024 CREATININE 0.68 (L) 08/03/2024 EGFR 110 08/03/2024 CALCIUM 9.1 08/03/2024 MG 1.8 (L) 08/03/2024 PHOS 3.6 08/02/2024 ANIONGAP 4 08/03/2024 Recent Results (from the past 168 hour(s)) Blood Culture, Peripheral #2 Collection Time: 07/30/24 3:00 AM Specimen: Blood, Venous Result Value Ref Range Culture, Blood No growth at 2 days Blood Culture, Peripheral #1 Collection Time: 07/30/24 3:10 AM Specimen: Blood, Venous Result Value Ref Range Culture, Blood No growth at 2 days Imaging: IR Asp Abscess/Hematoma/Bulla/Cyst Narrative: CT-guided drainage INDICATION: Patient with metastatic disease to the liver with concern for development of hepatic abscess. Interventionalists: Dr. Gerson Alvarez Procedure: Informed consent was obtained prior to the procedure. Prior imaging studies were reviewed. The patient was placed in supine position on the imaging table with an overlying marking grid. Aninitial guiding scan was performed through the area of concern. After identifying the most appropriate access, the overlying skin was demarcated. The skin was then prepped and draped in the usual andsterile fashion. A timeout was performed as per institutional guidelines. Moderate sedation: Under direct physician supervision, the patient was moderately sedated with 100 mcg FENTANYL and 2.0 mg VERSED IV for a total of 30 minutes. An independent interventional radiologynurse observer trained in conscious sedation provided continuous physiologic monitoring of the patient during the entirety of the procedure through recovery. 2% lidocaine was used for skin anesthesia. A small stab incision was made with an 11 blade scalpel.No styloid and 18-gauge needles were available for aspiration attempt. Therefore a micropuncture kit was utilized to access the area of concern under continuous CT fluoroscopic guidance. Advancement of the needle was challenging due to the firmness of the area in question. A mandrel wire was attempted to be coiled within any potential cavity, however the wire would not coil indicating positioningwithin solid liver/mass. Aspiration attempt yielded no return of any [...] diagnostic study performed earlier for anatomic detail. Impression: CT-guided aspiration of a suspected abscess in the upper aspect of the liver. Aspiration attempt yielded no return of any fluid or pus. This is therefore likely hepatic tumor given the underlying history of hepatocellular carcinoma. This is not indicative of abscess at this time. -------- FINAL REPORT -------- Dictated By: Gerson Alvarez Dictated Date: 08/02/2024 10:28 ET Assigned Physician: Gerson Alvarez Reviewed and Electronically Signed By: Gerson Alvarez Signed Date: 08/02/2024 10:35 ET Workstation ID: [id number] Transcribed By: Self Edit Transcribed Date: 08/02/2024 10:28 ET DAILY CARE CHECKLIST Length of Stay: 02d 20h 56m VTE Prophylaxis: Enoxaparin Resuscitation: Full Code - Default IV Access: Chest port Tubes, Catheters, Devices: None PCP: Oralia Palomino MD Disposition: Pending euvolemia Junior Billings MD 08/03/24 2:50 PM EST * Evangelina Lisa RN - 08/03/2024 10:24 AM EST Goals: Clinical Goals for the Shift: pain relief Identify possible barriers to meeting goals/advancing plan of care: awaiting IR procedure. Stability of the patient: Moderately Stable - Low risk of patient condition declining or worsening End of Shift Summary: will continue to monitor. * Melissa Aparicio RN - 08/03/2024 4:34 AM EST Problem: Sensory: Acute Pain Goal: Pain level will improve or be tolerable Outcome: Progressing Goal: Ability to develop a pain control plan will improve Outcome: Progressing Problem: Cognitive: Acute Pain Goal: Expressions of feelings of enhanced comfort will increase Outcome: Progressing Problem: Patient Specific Problem: Acute Pain Goal: Patient Specific Outcome Outcome: Progressing Problem: Cognitive: Infection Risk of Goal: Understanding of ways to prevent infection will improve Outcome: Progressing Problem: Physical Regulation:Infection Risk Of Goal: Will remain free from infection Outcome: Progressing Problem: Skin Integrity:Infection Risk Of Goal: Demonstrates signs of wound healing without infection Outcome: Progressing Problem: Patient Specific Problem:Infection Risk of Goal: Patient Specific Outcome Outcome: Progressing Goals: Clinical Goals for the Shift: pain relief Identify possible barriers to meeting goals/advancing plan of care: Chestport placement Stability of the patient: Moderately Stable - Low risk of patient condition declining or worsening End of Shift Summary: Patient safety and comfort maintained through all night. NPO at midnight for IR - chestport fixing. Patient is on 1500 ml fluid restriction had 240ml Intake on my shift and 1550output. * Ruddy Carrero MD - 08/02/2024 12:31 PM EST Images from the original note were not included. [facility] PROGRESS NOTE Date: 08/02/2024 Author: Ruddy Carrero MD Patient ID: Victor Manuel Cole is a 54 y.o. male : 1970 MR#: [id number] SUBJECTIVE Subjective Patient seen by the bedside this morning No acute events overnight. Patient feeling better and swelling has improved. On exam patient does have bilateral lower extremity swelling, definitely better than yesterday. Allergies Lisinopril Current Medications: alteplase, 2 mg, intra-catheter, Once aspirin, 81 mg, oral, Daily furosemide, 40 mg, intravenous, BID 04-17 gabapentin, 400 mg, oral, TID insulin glargine, 10 Units, subcutaneous, q AM insulin lispro, 2-12 Units, subcutaneous, TID AC levothyroxine, 100 mcg, oral, q AM AC melatonin, 6 mg, oral, Nightly nicotine, 1 patch, transdermal, Daily sodium chloride, 10 mL, intravenous, BID spironolactone, 50 mg, oral, BID with meals PRN medications: acetaminophen, albuterol, dextrose 50%, dextrose 50%, dextrose, dextrose, glucagoninjection, magnesium hydroxide, naloxone, ondansetron, oxyCODONE, Insert peripheral IV AND Maintain IV access AND Saline lock IV AND sodium chloride AND sodium chloride OBJECTIVE Vitals: 08/02/24 1004 08/02/24 1010 08/02/24 1015 08/02/24 1117 BP: 134/74 134/84 130/84 (!) 132/93 BP Location: Patient Position: Pulse: 80 84 80 81 Resp: 18 15 20 Temp: TempSrc: SpO2: 93% 95% 97% 95% Weight: Height: Physical Exam Constitutional: General: He is in acute distress. HENT: Head: Normocephalic. Eyes: Conjunctiva/sclera: Conjunctivae normal. Cardiovascular: Rate and Rhythm: Normal rate and regular rhythm. Heart sounds: Normal heart sounds. Pulmonary: Effort: Pulmonary effort is normal. No respiratory distress. Breath sounds: Normal breath sounds. No wheezing. Abdominal: General: Bowel sounds are normal. There is no distension. Palpations: Abdomen is soft. Tenderness: There is no abdominal tenderness. Comments: Scrotal swelling noted. Musculoskeletal: General: Swelling present. Right lower leg: Edema present. Left lower leg: Edema present. Skin: General: Skin is warm. Neurological: Mental Status: He is alert. Psychiatric: Mood and Affect: Mood normal. Behavior: Behavior normal. LABS HEMATOLOGY Lab Results Component Value Date WBC 8.1 08/02/2024 HGB 11.5 (L) 08/02/2024 HCT 38.9 (L) 08/02/2024 MCV 73.5 (L) 08/02/2024 PLT 208 08/02/2024 CHEMISTRY Lab Results Component Value Date GLUCOSE 146 (H) 08/02/2024 NA 132 (L) 08/02/2024 K 3.9 08/02/2024 CO2 34 (H) 08/02/2024 CL 96 08/02/2024 BUN 14 08/02/2024 CREATININE 0.73 08/02/2024 EGFR 107 08/02/2024 CALCIUM 8.6 08/02/2024 MG 1.7 (L) 08/02/2024 PHOS 3.6 08/02/2024 ANIONGAP 2 (L) 08/02/2024 Imaging: IR Asp Abscess/Hematoma/Bulla/Cyst Narrative: CT-guided drainage INDICATION: Patient with metastatic disease to the liver with concern for development of hepatic abscess. Interventionalists: Dr. Gerson Alvarez Procedure: Informed consent was obtained prior to the procedure. Prior imaging studies were reviewed. The patient was placed in supine position on the imaging table with an overlying marking grid. Aninitial guiding scan was performed through the area of concern. After identifying the most appropriate access, the overlying skin was demarcated. The skin was then prepped and draped in the usual andsterile fashion. A timeout was performed as per institutional guidelines. Moderate sedation: Under direct physician supervision, the patient was moderately sedated with 100 mcg FENTANYL and 2.0 mg VERSED IV for a total of 30 minutes. An independent interventional radiologynurse observer trained in conscious sedation provided continuous physiologic monitoring of the patient during the entirety of the procedure through recovery. 2% lidocaine was used for skin anesthesia. A small stab incision was made with an 11 blade scalpel.No styloid and 18-gauge needles were available for aspiration attempt. Therefore a micropuncture kit was utilized to access the area of concern under continuous CT fluoroscopic guidance. Advancement of the needle was challenging due to the firmness of the area in question. A mandrel wire was attempted to be coiled within any potential cavity, however the wire would not coil indicating positioningwithin solid liver/mass. Aspiration attempt yielded no return of any [...] diagnostic study performed earlier for anatomic detail. Impression: CT-guided aspiration of a suspected abscess in the upper aspect of the liver. Aspiration attempt yielded no return of any fluid or pus. This is therefore likely hepatic tumor given the underlying history of hepatocellular carcinoma. This is not indicative of abscess at this time. -------- FINAL REPORT -------- Dictated By: Gerson Alvarez Dictated Date: 08/02/2024 10:28 ET Assigned Physician: Gerson Alvarez Reviewed and Electronically Signed By: Gerson Alvarez Signed Date: 08/02/2024 10:35 ET Workstation ID: [id number] Transcribed By: Self Edit Transcribed Date: 08/02/2024 10:28 ET ASSESSMENT & PLAN Assessment/Plan Principal Problem: Anasarca No problem-specific Assessment & Plan notes found for this encounter. Patient is 54 years old male with past medical history significant for type 2 diabetes mellitus, hepatocellular carcinoma, presented to the ED with complaints of scrotal swelling with associated discomfort. Patient was recently admitted last month for scrotal cellulitis, treated with broad-spectrumantibiotics and subsequently discharged on oral antibiotics. Patient subsequently had developed lipswelling, came to the ED and was suspected to have angioedema, treated with systemic steroids and H2 blockers. Patient's NOY inhibitor was stopped after this episode and patient's antibiotics were switched to doxycycline which he finished 3 to 4 weeks ago. Patient now currently admitted for furthermanagement of scrotal swelling. # Anasarca with scrotal edema in the setting of hepatocellular carcinoma. -Patient has diffuse lower extremity, scrotal swelling -Echocardiogram completed showed ejection fraction 60 to 65%. No hemodynamically significant valve disease noted. Ultrasound duplex lower extremity showed no evidence of DVT. -Ultrasound scrotum showed diffuse bilateral scrotal wall thickening and edema. Small bilateral hydroceles noted. Testicles and epididymis are within normal limits. -Urinalysis showed no bacteria. Urine protein elevated 100. -Patient has been started on IV Lasix and spironolactone. Monitor intake and output closely. Fluid restriction 1500 mL/day, sodium restriction. -Patient is having good urine output with improvement in symptoms. Oncology opinion reviewed. Planning for immunotherapy again in the future. Will continue IV diuresis with Lasix along with spironolactone. Monitor intake and output closely. -Interventional radiologist attempted drainage of the hepatic abscess, but no return of any fluid or pus noted. Likely hepatic mass given the history of hepatocellular carcinoma. # Hypomagnesemia, likely from poor oral intake -Magnesium replacement, monitor levels closely. # Type 2 diabetes mellitus -Continue management with insulin Lantus, sliding scale. On gabapentin for neuropathy. -Hemoglobin A1c 8.2. # Hypothyroidism -Continue levothyroxine 100 mcg p.o. daily. # Nicotine dependence Patient is a chronic active smoker, on nicotine patch. # Disposition Pending clinical stability, continue IV diuresis Total time spent 40minutes doing chart review, interviewing patient, gathering information, performing physical exam, formulating plan, explaining management plan to patient, coordinating care with specialists, coordinating care with RN, documentation and placing orders. This dictation was performed using voice recognition software. Word substitution may have occurred and may have gone unnoticed and uncorrected * Rosaline Shea RN - 08/02/2024 12:11 AM EST Problem: Sensory: Acute Pain Goal: Pain level will improve or be tolerable Outcome: Progressing Goal: Ability to develop a pain control plan will improve Outcome: Progressing Goals: Clinical Goals for the Shift: pain relief Identify possible barriers to meeting goals/advancing plan of care: decrease edema to scrotum Stability of the patient: Moderately Stable - Low risk of patient condition declining or worsening End of Shift Summary: vss minimal c/o pain controlled with prn pain med * Ruddy Carrero MD - 08/01/2024 1:58 PM EST Images from the original note were not included. [facility] PROGRESS NOTE Date: 08/01/2024 Author: Ruddy Carrero MD Patient ID: Victor Manuel Cole is a 54 y.o. male : 1970 MR#: [id number] SUBJECTIVE Subjective Patient seen by the bedside this morning No acute events overnight. Patient was seen ambulating in the floors without any difficulty. Patient reports some improvement in swelling. Will continue IV diuresis. Allergies Lisinopril Current Medications: aspirin, 81 mg, oral, Daily furosemide, 40 mg, intravenous, BID -17 gabapentin, 400 mg, oral, TID insulin glargine, 10 Units, subcutaneous, q AM insulin lispro, 2-12 Units, subcutaneous, TID AC levothyroxine, 100 mcg, oral, q AM AC melatonin, 6 mg, oral, Nightly nicotine, 1 patch, transdermal, Daily sodium chloride, 10 mL, intravenous, BID spironolactone, 50 mg, oral, BID with meals PRN medications: acetaminophen, albuterol, dextrose 50%, dextrose 50%, dextrose, dextrose, glucagoninjection, magnesium hydroxide, naloxone, ondansetron, oxyCODONE, Insert peripheral IV AND Maintain IV access AND Saline lock IV AND sodium chloride AND sodium chloride OBJECTIVE Vitals: 07/31/24 1809 07/31/24201108/01/24 0217 08/01/24 0801 BP: 134/89 (!) 176/89 (!) 153/96 (!) 153/89 BP Location: Right arm Right arm Right arm Right arm Patient Position: Sitting Lying Lying Sitting Pulse: 85 82 72 84 Resp: 18 18 18 17 Temp: 37.2 ??C (98.9 ??F) 36.9 ??C (98.4 ??F) 36.2 ??C (97.1 ??F) 36.6 ??C (97.8 ??F) TempSrc: Temporal Temporal Temporal Temporal SpO2: 96% 100% 96% 93% Weight: Height: Physical Exam Constitutional: General: He is in acute distress. HENT: Head: Normocephalic. Eyes: Conjunctiva/sclera: Conjunctivae normal. Cardiovascular: Rate and Rhythm: Normal rate and regular rhythm. Heart sounds: Normal heart sounds. Pulmonary: Effort: Pulmonary effort is normal. No respiratory distress. Breath sounds: Normal breath sounds. No wheezing. Abdominal: General: Bowel sounds are normal. There is no distension. Palpations: Abdomen is soft. Tenderness: There is no abdominal tenderness. Comments: Scrotal swelling noted. Musculoskeletal: General: Swelling present. Right lower leg: Edema present. Left lower leg: Edema present. Skin: General: Skin is warm. Neurological: Mental Status: He is alert. Psychiatric: Mood and Affect: Mood normal. Behavior: Behavior normal. LABS HEMATOLOGY Lab Results Component Value Date WBC 7.4 07/31/2024 HGB 11.0 (L) 07/31/2024 HCT 38.4 (L) 07/31/2024 MCV 76.0 (L) 07/31/2024 PLT 193 07/31/2024 CHEMISTRY Lab Results Component Value Date GLUCOSE 180 (H) 08/01/2024 NA 135 07/31/2024 K 4.1 07/31/2024 CO2 32 07/31/2024 CL 99 07/31/2024 BUN 11 07/31/2024 CREATININE 0.55 (L) 07/31/2024 EGFR 117 07/31/2024 CALCIUM 8.8 07/31/2024 MG 1.7 (L) 07/31/2024 ANIONGAP 4 07/31/2024 Imaging: Transthoracic echocardiogram (TTE) complete with PRN contrast, bubble, strain, and 3D order panel Left ventricle was not well visualized. Wall thickness was not well visualized. Systolic function is normal with an ejection fraction of 60-65%. There is a septal bounce present with otherwise normal wall motion. There is no diastolic dysfunction. Right ventricle cavity is normal. Right ventricular systolic function is normal. The atria are normal in size. No hemodynamically significant valve disease. See remainder of the report for additional findings. XR Chest 2 Views Narrative: History: Anasarca. Metastatic hepatocellular carcinoma. Comparison: 06/18/24 Findings: PA and lateral views. The cardiac silhouette remains borderline enlarged. Hilar contours and pulmonary vascularity are within normal limits. A Port-A-Cath is seen on the right, malpositioned, the catheter extending into the neck, presumablywithin the internal jugular vein, and looping back upon itself to terminate in the lower neck, similar to the previous chest radiograph. The lungs are clear. The costophrenic angle is are sharp. The regional skeleton appears intact. Impression: Impression: 1. Malpositioned right Port-A-Cath, similar to the previous study, but a change from the insertion procedure imaging from 12/05/23. 2. No active pulmonary process. Telerad LAYLA ([id number]) -------- FINAL REPORT -------- Dictated By: Kimberley Becerra Dictated Date: 07/30/2024 09:04 ET Assigned Physician: Kimberley Becerra Reviewed and Electronically Signed By: Kimberley Becerra Signed Date: 07/30/2024 09:08 ET Workstation ID: [id number] Transcribed By: Self Edit Transcribed Date: 07/30/2024 09:04 ET Vascular US duplex lower extremity venous bilateral Narrative: History: Bilateral lower extremity swelling. Findings: Duplex [...] underlying right heart failure and/or tricuspid regurgitation. Impression: Impression: No evidence of deep vein thrombosis in the femoral-popliteal venous segments of both lower extremities. [id number] -------- FINAL REPORT -------- Dictated By: Kimberley Becerra Dictated Date: 07/30/2024 08:55 ET Assigned Physician: Kimberley Becerra Reviewed and Electronically Signed By: Kimberley Becerra Signed Date: 07/30/2024 08:55 ET Workstation ID: [id number] Transcribed By: Self Edit Transcribed Date: 07/30/2024 08:[address] Abdomen Pelvis w Contrast Addendum: ADDENDUM: Receipt of this report by the clinical staff was confirmed with ARTURO Elliott on Jul 30, 2024 05:52:00 EST. This document has been electronically signed by: Yamilka Franco on 07/30/2024 05:52:59 Narrative: CT abdomen and pelvis with contrast Comparison: [...] diverticulosis. Diffuse anasarca present. Severe scrotal edema/thickening. Impression: Impression: There is an irregular low-density peripherally enhancing lesion within the hepatic dome most consistent with abscess. Malignancy less likely but possible. Anasarca and severe scrotal thickening. Diverticulosis without diverticulitis. This document has been electronically signed by: Foreign Pickens MD on 07/30/2024 05:34:55 ASSESSMENT & PLAN Assessment/Plan Principal Problem: Anasarca No problem-specific Assessment & Plan notes found for this encounter. Patient is 54 years old male with past medical history significant for type 2 diabetes mellitus, hepatocellular carcinoma, presented to the ED with complaints of scrotal swelling with associated discomfort. Patient was recently admitted last month for scrotal cellulitis, treated with broad-spectrumantibiotics and subsequently discharged on oral antibiotics. Patient subsequently had developed lipswelling, came to the ED and was suspected to have angioedema, treated with systemic steroids and H2 blockers. Patient's NOY inhibitor was stopped after this episode and patient's antibiotics were switched to doxycycline which he finished 3 to 4 weeks ago. Patient now currently admitted for furthermanagement of scrotal swelling. # Anasarca with scrotal edema in the setting of hepatocellular carcinoma. -Patient has diffuse lower extremity, scrotal swelling -Echocardiogram completed showed ejection fraction 60 to 65%. No hemodynamically significant valve disease noted. Ultrasound duplex lower extremity showed no evidence of DVT. -Ultrasound scrotum showed diffuse bilateral scrotal wall thickening and edema. Small bilateral hydroceles noted. Testicles and epididymis are within normal limits. -Urinalysis showed no bacteria. Urine protein elevated 100. -Patient has been started on IV Lasix and spironolactone. Monitor intake and output closely. Fluid restriction 1500 mL/day, sodium restriction. -Patient is having good urine output with improvement in symptoms. Oncology opinion reviewed. Planning for immunotherapy again in the future. Suggesting drainage of the hepatic abscess. IR consultation placed. Will continue IV diuresis with Lasix along with spironolactone. Monitor intake and outputclosely. # Hypomagnesemia, likely from poor oral intake -Magnesium replacement, monitor levels closely. # Type 2 diabetes mellitus -Continue management with insulin Lantus, sliding scale. On gabapentin for neuropathy. -Hemoglobin A1c 8.2. # Hypothyroidism -Continue levothyroxine 100 mcg p.o. daily. # Nicotine dependence Patient is a chronic active smoker, on nicotine patch. # Disposition -Transfer to [facility] Total time spent 35minutes doing chart review, interviewing patient, gathering information, performing physical exam, formulating plan, explaining management plan to patient, coordinating care with specialists, coordinating care with RN, documentation and placing orders. This dictation was performed using voice recognition software. Word substitution may have occurred and may have gone unnoticed and uncorrected * Cathy Caruso RN - 08/01/2024 3:53 AM EST Goals: Clinical Goals for the Shift: pain relief Identify possible barriers to meeting goals/advancing plan of care: Acute pain Stability of the patient: Moderately Stable - Low risk of patient condition declining or worsening End of Shift Summary: Pt is alert and oriented x 4, complained of pain 7/10, see manny, Pt ambulatedin his room, call light within reach. Problem: Sensory: Acute Pain Goal: Pain level will improve or be tolerable Outcome: Progressing Goal: Ability to develop a pain control plan will improve Outcome: Progressing Problem: Cognitive: Acute Pain Goal: Expressions of feelings of enhanced comfort will increase Outcome: Progressing Problem: Patient Specific Problem: Acute Pain Goal: Patient Specific Outcome Outcome: Progressing Problem: Cognitive: Infection Risk of Goal: Understanding of ways to prevent infection will improve Outcome: Progressing Problem: Physical Regulation:Infection Risk Of Goal: Will remain free from infection Outcome: Progressing Problem: Skin Integrity:Infection Risk Of Goal: Demonstrates signs of wound healing without infection Outcome: Progressing Problem: Patient Specific Problem:Infection Risk of Goal: Patient Specific Outcome Outcome: Progressing * Ruddy Carrero MD - 07/31/2024 2:34 PM EST Images from the original note were not included. [place] PROGRESS NOTE Date: 07/31/2024 Author: Ruddy Carrero MD Patient ID: Victor Manuel Cole is a 54 y.o. male : 1970 MR#: [id number] SUBJECTIVE Subjective Patient seen by the bedside this morning No acute events overnight Patient complains of diffuse scrotal swelling, lower extremity swelling. Patient has history of hepatocellular cancer diagnosed earlier this year. Patient is a chronic active smoker currently has nicotine patch in place. Denies chest pain or shortness of breath. Allergies Lisinopril Current Medications: aspirin, 81 mg, oral, Daily furosemide, 40 mg, intravenous, BID 04-17 gabapentin, 400 mg, oral, TID insulin glargine, 10 Units, subcutaneous, q AM insulin lispro, 2-12 Units, subcutaneous, TID AC levothyroxine, 100 mcg, oral, q AM AC melatonin, 6 mg, oral, Nightly nicotine, 1 patch, transdermal, Daily sodium chloride, 10 mL, intravenous, BID spironolactone, 50 mg, oral, BID with meals PRN medications: acetaminophen, albuterol, dextrose 50%, dextrose 50%, dextrose, dextrose, glucagoninjection, [Held by provider] HYDROmorphone, magnesium hydroxide, naloxone, ondansetron, oxyCODONE,Insert peripheral IV AND Maintain IV access AND Saline lock IV AND sodium chloride AND sodium chloride OBJECTIVE Vitals: 07/30/24 2042 07/31/24 0558 07/31/24 0809 07/31/24 1139 BP: (!) 143/100 (!) 147/99 (!) 148/92 BP Location: Left arm Right arm Left arm Patient Position: Sitting Lying Lying Pulse: 78 72 78 Resp: 19 17 Temp: 36.6 ??C (97.9 ??F) 36.9 ??C (98.5 ??F) 36.9 ??C (98.4 ??F) TempSrc: Oral Temporal Temporal SpO2: 99% 98% 98% Weight: 144 kg (317 lb 12.8 oz) Height: Physical Exam Constitutional: General: He is in acute distress. HENT: Head: Normocephalic. Eyes: Conjunctiva/sclera: Conjunctivae normal. Cardiovascular: Rate and Rhythm: Normal rate and regular rhythm. Heart sounds: Normal heart sounds. Pulmonary: Effort: Pulmonary effort is normal. No respiratory distress. Breath sounds: Normal breath sounds. No wheezing. Abdominal: General: Bowel sounds are normal. There is no distension. Palpations: Abdomen is soft. Tenderness: There is no abdominal tenderness. Musculoskeletal: General: Swelling present. Right lower leg: Edema present. Left lower leg: Edema present. Skin: General: Skin is warm. Neurological: Mental Status: He is alert. Psychiatric: Mood and Affect: Mood normal. Behavior: Behavior normal. LABS HEMATOLOGY Lab Results Component Value Date WBC 7.4 07/31/2024 HGB 11.0 (L) 07/31/2024 HCT 38.4 (L) 07/31/2024 MCV 76.0 (L) 07/31/2024 PLT 193 07/31/2024 CHEMISTRY Lab Results Component Value Date GLUCOSE 179 (H) 07/31/2024 NA 135 07/31/2024 K 4.1 07/31/2024 CO2 32 07/31/2024 CL 99 07/31/2024 BUN 11 07/31/2024 CREATININE 0.55 (L) 07/31/2024 EGFR 117 07/31/2024 CALCIUM 8.8 07/31/2024 MG 1.7 (L) 07/31/2024 ANIONGAP 4 07/31/2024 Imaging: Transthoracic echocardiogram (TTE) complete with PRN contrast, bubble, strain, and 3D order panel Left ventricle was not well visualized. Wall thickness was not well visualized. Systolic function is normal with an ejection fraction of 60-65%. There is a septal bounce present with otherwise normal wall motion. There is no diastolic dysfunction. Right ventricle cavity is normal. Right ventricular systolic function is normal. The atria are normal in size. No hemodynamically significant valve disease. See remainder of the report for additional findings. XR Chest 2 Views Narrative: History: Anasarca. Metastatic hepatocellular carcinoma. Comparison: 06/18/24 Findings: PA and lateral views. The cardiac silhouette remains borderline enlarged. Hilar contours and pulmonary vascularity are within normal limits. A Port-A-Cath is seen on the right, malpositioned, the catheter extending into the neck, presumablywithin the internal jugular vein, and looping back upon itself to terminate in the lower neck, similar to the previous chest radiograph. The lungs are clear. The costophrenic angle is are sharp. The regional skeleton appears intact. Impression: Impression: 1. Malpositioned right Port-A-Cath, similar to the previous study, but a change from the insertion procedure imaging from 12/05/23. 2. No active pulmonary process. Telerad LAYLA ([id number]) -------- FINAL REPORT -------- Dictated By: Kimberley Becerra Dictated Date: 07/30/2024 09:04 ET Assigned Physician: Kimberley Becerra Reviewed and Electronically Signed By: Kimberley Becerra Signed Date: 07/30/2024 09:08 ET Workstation ID: [id number] Transcribed By: Self Edit Transcribed Date: 07/30/2024 09:04 ET Vascular US duplex lower extremity venous bilateral Narrative: History: Bilateral lower extremity swelling. Findings: Duplex [...] underlying right heart failure and/or tricuspid regurgitation. Impression: Impression: No evidence of deep vein thrombosis in the femoral-popliteal venous segments of both lower extremities. [id number] -------- FINAL REPORT -------- Dictated By: Kimberley Becerra Dictated Date: 07/30/2024 08:55 ET Assigned Physician: Kimberley Becerra Reviewed and Electronically Signed By: Kimberley Becerra Signed Date: 07/30/2024 08:55 ET Workstation ID: [id number] Transcribed By: Self Edit Transcribed Date: 07/30/2024 08:[address] Abdomen Pelvis w Contrast Addendum: ADDENDUM: Receipt of this report by the clinical staff was confirmed with ARTURO Elliott on Jul 30, 2024 05:52:00 EST. This document has been electronically signed by: Yamilka Franco on 07/30/2024 05:52:59 Narrative: CT abdomen and pelvis with contrast Comparison: [...] diverticulosis. Diffuse anasarca present. Severe scrotal edema/thickening. Impression: Impression: There is an irregular low-density peripherally enhancing lesion within the hepatic dome most consistent with abscess. Malignancy less likely but possible. Anasarca and severe scrotal thickening. Diverticulosis without diverticulitis. This document has been electronically signed by: Foreign Pickens MD on 07/30/2024 05:34:55 ASSESSMENT & PLAN Assessment/Plan Principal Problem: Anasarca No problem-specific Assessment & Plan notes found for this encounter. Patient is 54 years old male with past medical history significant for type 2 diabetes mellitus, hepatocellular carcinoma, presented to the ED with complaints of scrotal swelling with associated discomfort. Patient was recently admitted last month for scrotal cellulitis, treated with broad-spectrumantibiotics and subsequently discharged on oral antibiotics. Patient subsequently had developed lipswelling, came to the ED and was suspected to have angioedema, treated with systemic steroids and H2 blockers. Patient's NOY inhibitor was stopped after this episode and patient's antibiotics were switched to doxycycline which he finished 3 to 4 weeks ago. Patient now currently admitted for furthermanagement of scrotal swelling. # Anasarca with scrotal edema in the setting of hepatocellular carcinoma. -Patient has diffuse lower extremity, scrotal swelling -Echocardiogram completed showed ejection fraction 60 to 65%. No hemodynamically significant valve disease noted. Ultrasound duplex lower extremity showed no evidence of DVT. -Ultrasound scrotum showed diffuse bilateral scrotal wall thickening and edema. Small bilateral hydroceles noted. Testicles and epididymis are within normal limits. -Urinalysis showed no bacteria. Urine protein elevated 100. -Patient has been started on IV Lasix and spironolactone. Will get an opinion from urologist., Oncologist. Monitor intake and output closely. Fluid restriction 1500 mL/day, sodium restriction. # Hypomagnesemia, likely from poor oral intake -Magnesium 1.7. Magnesium replacement today. Monitor levels closely. # Type 2 diabetes mellitus -Continue management with insulin Lantus, sliding scale. On gabapentin for neuropathy. -Hemoglobin A1c 8.2. # Hypothyroidism -Continue levothyroxine 100 mcg p.o. daily. # Nicotine dependence Patient is a chronic active smoker, on nicotine patch. # Disposition -Transfer to [facility] Total time spent 38minutes doing chart review, interviewing patient, gathering information, performing physical exam, formulating plan, explaining management plan to patient, coordinating care with specialists, coordinating care with RN, documentation and placing orders. This dictation was performed using voice recognition software. Word substitution may have occurred and may have gone unnoticed and uncorrected * Dyan Avilez - 07/31/2024 8:51 AM EST SPIRITUAL CARE Date/Time:07/31/24 at 8:52 AM EST Type of Visit:Applications Programmer Rounding Reason for Visit: Spiritual/Emotional Support Time Spent: 10 Minutes Location: [facility]219- Sacramental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 antibiotics ?? Related to Avastin +/- underlying liver disease vs CHF vs thrombosis Will get Echocardiogram Will get bilateral lower extremity doppler US to r/o DVT Will diurese with IV Lasix + oral spironolactone F/U I/O's & daily weights as well as lytes and renal fx closely 2. Hepatocellular Ca on treatment Will let Dr. Ludwig know that patient is being admitted 3. Type 2 Diabetes mellitus Will check Hgb A1c Will use Lantus 10 units SQ in AM Will use Humlaog PRN sliding scale 4. Hypothyroidism With elevated TSH --> suspect due to noncompliance Continue with L-thyroxine supplementation 5. Asthma/ COPD/ Tobacco abuse With no acute exacerbation Encouraged to quit smoking Will use Albuterol Nebs PRN 6. Chronic Pain syndrome Cont' with Gabapentin, same dose Admission checklist [x] Code status: Full Code - Default [x] VTE Prophylaxis: with Lovenox SQ and compression stockings [x] Diet order on admission: [x] Medication reconciliation: done Health Care proxy/ NOK : Yesy Cole (sister) [phone] documented in this encounter Consult Notes * LAYLA Dia - 08/02/2024 8:39 AM ESTAssociated Order(s): IP CONSULT TO INTERVENTIONAL RADIOLOGY Case already on IR schedule for 08/02/[address] Gerson Alvarez. * Subramony Subramonia-MD Oziel - 08/01/2024 11:59 AM EST Requesting physician - Dr Carrero Diagnosis #1 hepatocellular carcinoma, stage IV disease #2 status post immunotherapy x 10 cycles #3 liver cirrhosis and anasarca #4 scrotal cellulitis HPI Mr. Cole is a 54-year-old gentleman, who initially presented to hospital in October 2023, with issues related to abdominal pain, and underwent cholecystectomy surgery. At that time he had sampling from the lymph node that revealed hepatocellular carcinoma. Imaging also demonstrated liver mass. For the management of stage IV hepatocellular carcinoma patient is continued on immunotherapy with Avastin and Tecentriq, achieving good clinical response. However more recently treatment has been held dueto recurrent scrotal cellulitis for which patient was admitted to hospital a month ago. He has now been readmitted. Patient reports pain and swelling in the lower abdomen and scrotal area. Since admission, he had imaging studies CT A/P and an ultrasound duplex, no evidence of DVT. CT A/P demonstrated low-density liver mass 6.9 cm, question of abscess, previously the mass had decreased in size over 3 months He feels that his symptoms are stable. Patient's prior history of hepatitis C is reviewed. He is started on medication but could not continue it due to severe depressive symptoms and intolerance Past medical history Diabetes mellitus, hypothyroidism secondary to medication, tobacco use, hypomagnesemia, hepatitis C Past surgical history Cholecystectomy Family history-noncontributory Medications-reviewed On outpatient infusions Avastin and Tecentriq, immunotherapy Allergies-lisinopril cough/angioedema Examination Middle-aged man appears fatigued vital signs-stable Vitals: 08/01/24 0801 BP: (!) 153/89 Pulse: 84 Resp: 17 Temp: 36.6 ??C (97.8 ??F) SpO2: 93% HEENT-pink conjunctiva Oral mucosa-moist Neck-supple Lungs decreased breath sounds at bases Heart sounds S1 and S2 regular tachycardia Abdomen soft, tender right upper quadrant and lower abdomen Extremities grade 1 edema Lab work Lab Results Component Value Date WBC 7.4 07/31/2024 HGB 11.0 (L) 07/31/2024 HCT 38.4 (L) 07/31/2024 MCV 76.0 (L) 07/31/2024 PLT 193 07/31/2024 Lab Results Component Value Date NA 135 07/31/2024 K 4.1 07/31/2024 CL 99 07/31/2024 CO2 32 07/31/2024 GLUCOSE 180 (H) 08/01/2024 BUN 11 07/31/2024 CREATININE 0.55 (L) 07/31/2024 CALCIUM 8.8 07/31/2024 PROT 6.6 07/24/2024 ALBUMIN 2.7 (L) 07/24/2024 BILITOT 0.4 07/24/2024 AST 31 07/24/2024 ALT 26 07/24/2024 MG 1.7 (L) 07/31/2024 ALKPHOS 108 07/24/2024 EGFR 117 07/31/2024 Imaging studies-reviewed CT A/P question of tumor necrosis versus abscess Impression and plan #1 hepatocellular carcinoma, stage IV disease with lymph node involvement -Appears to have pseudo progression, will check AFP level as well -Overall by comparison of imaging the lesion appears to have more central necrosis may be related to the immunotherapy -Differential diagnosis includes abscess, as reported by radiology, recommend review with IR whether this can be drained #2 immunotherapy potentially contributing to slow wound healing [...] sorafenib etc., several lines of treatment are available #3 liver cirrhosis, anasarca -management per primary team, may benefit from continued diuresis #4 poorly controlled diabetes mellitus with peripheral neuropathy -Latest HbA1c 8.2, defer to primary team #5 scrotal cellulitis-completed outpatient antibiotics Will follow-up please call with any questions documented in this encounter Plan of Treatment Upcoming Encounters Date Type Department Care Team (Late st Contact Info) Description 09/03/2024 9:15 AM EST Consult General Surgery - [address] [place] [phone] Mitchel Crisostomo, DO 175 [facility] [address] [place] [address] 09/04/2024 9:00 AM EST Appointment [facility] [address] [phone] 09/05/2024 10:30 AM EST Office Visit [facility] [address] [place] [phone] Adal Goldstein MD [address] [place] [phone] 09/05/2024 11:00 AM EST Appointment [facility] [address] [phone] 09/05/2024 2:00 PM EST Office Visit Infectious Disease [facility] 175 [facility] [address] [place] [phone] Bridgette Correa MD 175 [facility] [address] [place] [address] Scheduled Orders Name Type Priority Associated Diagnoses Orde r Schedule Basic metabolic panel Lab Routine Anasarca Expected: 08/13/2024, Expires: 08/06/2025 documented as of this encounter Procedures Procedure Name Priority Date/Time Associated Diagnosis Comments POCT GLUCOSE BLOOD Routine 08/06/2024 11 :08 AM EST POCT GLUCOSE BLOOD Routine 08/06/2024 7: 46 AM EST EXTRA TUBES Routine 08/06/2024 6:23 AM EST LAVENDER - EDTA Routine 08/06/2024 6:23 AM EST MAGNESIUM Routine 08/06/2024 6:23 AM EST BASIC METABOLIC PANEL Routine 08/06/2024 6:23 AM EST POCT GLUCOSE BLOOD Routine 08/05/2024 8: 30 PM EST POCT GLUCOSE BLOOD Routine 08/05/2024 4: 07 PM EST POCT GLUCOSE BLOOD Routine 08/05/2024 11 :32 AM EST POCT GLUCOSE BLOOD Routine 08/05/2024 7: 48 AM EST EXTRA TUBES Routine 08/05/2024 5:54 AM EST LAVENDER - EDTA Routine 08/05/2024 5:54 AM EST MAGNESIUM Routine 08/05/2024 5:54 AM EST BASIC METABOLIC PANEL Routine 08/05/2024 5:54 AM EST POCT GLUCOSE BLOOD Routine 08/04/2024 8: 20 PM EST POCT GLUCOSE BLOOD Routine 08/04/2024 3: 57 PM EST POCT GLUCOSE BLOOD Routine 08/04/2024 11 :09 AM EST POCT GLUCOSE BLOOD Routine 08/04/2024 8: 04 AM EST MAGNESIUM Routine 08/04/2024 5:44 AM EST BASIC METABOLIC PANEL Routine 08/04/2024 5:44 AM EST EXTRA TUBES Routine 08/04/2024 5:41 AM EST LAVENDER - EDTA Routine 08/04/2024 5:41 AM EST POCT GLUCOSE BLOOD Routine 08/03/2024 8: 38 PM EST IR REPAIR CVAD W SUBQ PORT OR PUMP Routine 08/03/2024 6:18 PM EST POCT GLUCOSE BLOOD Routine 08/03/2024 4: 13 PM EST POCT GLUCOSE BLOOD Routine 08/03/2024 11 :22 AM EST POCT GLUCOSE BLOOD Routine 08/03/2024 8: 06 AM EST EXTRA TUBES Routine 08/03/2024 6:20 AM EST LAVENDER - EDTA Routine 08/03/2024 6:20 AM EST MAGNESIUM Routine 08/03/2024 6:20 AM EST BASIC METABOLIC PANEL Routine 08/03/2024 6:20 AM EST POCT GLUCOSE BLOOD Routine 08/02/2024 8: 55 PM EST POCT GLUCOSE BLOOD Routine 08/02/2024 3: 59 PM EST POCT GLUCOSE BLOOD Routine 08/02/2024 11 :03 AM EST IR ASP ABSCESS/HEMATOMA/BULLA/ CYST Routine 08/02/2024 10:24 AM EST CBC WITH AUTO DIFFERENTIAL Routine 08/02/2024 7:56 AM EST CBC AND DIFFERENTIAL Routine 08/02/2024 7:56 AM EST PHOSPHORUS Routine 08/02/2024 7:56 AM EST MAGNESIUM Routine 08/02/2024 7:56 AM EST BASIC METABOLIC PANEL Routine 08/02/2024 7:56 AM EST POCT GLUCOSE [...] BLOOD Routine 07/31/2024 11 :39 AM EST CBC WITH AUTO DIFFERENTIAL Routine 07/31/2024 7:51 AM EST ALPHA FETOPROTEIN TUMOR MARKER Add-On 07/31/2024 7:51 AM EST CBC AND DIFFERENTIAL Routine 07/31/2024 7:51 AM EST B-TYPE NATRIURETIC PEPTIDE Routine 07/31/2024 7:51 AM EST MAGNESIUM Routine 07/31/2024 7:51 AM EST BASIC METABOLIC PANEL Routine 07/31/2024 7:51 AM EST TRANSTHORACIC ECHOCARDIOGRAM [...] AM EST US SCROTUM AND CONTENTS STAT 07/29/20 7:48 PM EST URINALYSIS WITH REFLEX MICROSCOPIC AND CULTURE STAT 07/29/2024 6:58 PM EST QUINTANA URINE CULTURE TUBE STAT 07/29/20 6:58 PM EST URINALYSIS WITH REFLEX MICROSCOPIC AND CULTURE STAT 07/29/2024 6:58 PM EST CBC WITH AUTO DIFFERENTIAL STAT 07/29/2024 6:53 PM EST CBC AND DIFFERENTIAL STAT 07/29/2024 6:53 PM EST C-REACTIVE PROTEIN Add-On 07/29/2024 6: 53 PM EST THYROID STIMULATING HORMONE Add-On 07/29/2024 6:53 PM EST HEMOGLOBIN A1C Add-On 07/29/2024 6:53 PM EST BASIC METABOLIC PANEL STAT 07/29/2024 6:53 PM EST documented in this encounter Results * (ABNORMAL) POCT Glucose, blood (08/06/2024 11:08 AM EST) Glucose POCT 233(H) 70 - 100 mg/dL 08/06/2024 11:08 AM EST [facility] Blood Capillary blood specimen / Unknown 08/06/2024 11:08 AM EST 08/06/2024 11:10 AM EST Ruddy Carrero MD LAB POINT OF CA RE TEST DOCKED DEVICE UNSOLICITED RESULTS [facility] [address] [place] [address], [place] [phone] * (ABNORMAL) POCT Glucose, blood (08/06/2024 7:46 AM EST) Glucose POCT 131(H) 70 - 100 mg/dL 08/06/2024 7:47 AM EST [facility] Blood Capillary blood specimen / Unknown 08/06/2024 7:46 AM EST 08/06/2024 7:48 AM EST Ruddy Carrero MD LAB POINT OF CA RE TEST DOCKED DEVICE UNSOLICITED RESULTS [facility] [address] [place] [address], [place] [phone] * Lavender tube (08/06/2024 6:23 AM EST) Pathologist [facility] Extra Tube Hold for add-ons. 08/06/2024 9:01 AM EST [facility] Comment:Auto resulted. Blood Venous blood specimen / Unknown Venipuncture / Unknown 08/06/2024 6:23 AM EST 08/06/2024 7:07 AM EST Ruddy Carrero MD LAB BLOOD ORDER ABDIEL Performing Organization Address City/[facility]/ZIP Co de Phone Number [facility] [address] [place] [address], [place] [phone] * Magnesium (08/06/2024 6:23 AM EST) Magnesium 1.9 1.9 - 2.6 mg/dL LAB CHEMISTRY METHOD 08/06/2024 7:49 AM EST [facility] Blood Venous blood specimen / Unknown Venipuncture / Unknown 08/06/2024 6:23 AM EST 08/06/2024 7:04 AM EST Junior Billings MD LAB BLOOD ORDERABLES [facility] [address] [place] [address], * (ABNORMAL) Basic metabolic panel (08/06/2024 6:23 AM EST) Sodium 131(L) 133 - 145 mmol/L LAB CHEMISTRY METHOD 08/06/2024 7:49 AM [facility] Potassium 4.5 3.5 - 5.5 mmol/L LAB CHEMISTRY METHOD 08/06/2024 7:49 AM [facility] Chloride 93(L) 96 - 110 mmol/L LAB CHEMISTRY METHOD 08/06/2024 7:49 AM [facility] CO2 35(H) 21 - 32 mmol/L LAB CHEMISTRY METHOD 08/06/2024 7:49 AM [facility] Anion Gap 3 3 - 11 LAB CHEMISTRY METHOD 08/06/2024 7:49 AM [facility] Glucose 98 70 - 100 mg/dL LAB CHEMISTRY METHOD 08/06/2024 7:49 AM [facility] BUN 14 5 - 25 mg/dL LAB CHEMISTRY METHOD 08/06/2024 7:49 AM [facility] Creatinine 0.84 0.70 - 1.30 mg/dL LAB CHEMISTRY METHOD 08/06/2024 7:49 AM [facility] eGFR 103 >=60 mL/min/1. 73m2 LAB CHEMISTRY METHOD 08/06/2024 7:49 AM [facility] Comment:Calculation based on the??Chronic Kidney Disease Epidemiology Collaboration (CKD-EPI) equation refit??without adjustment for race. BUN/Creatinine Ratio 16.7 LAB CHEMISTRY METHOD 08/06/2024 7:49 AM [facility] Calcium 9.1 8.5 - 10.5 mg/dL LAB CHEMISTRY METHOD 08/06/2024 7:49 AM [facility] Blood Venous blood specimen / Unknown Venipuncture / Unknown 08/06/2024 6:23 AM EST 08/06/2024 7:04 AM EST Junior Billings MD LAB BLOOD ORDERABLES Performing Organization Address [facility]/ZIP Co de Phone Number [facility] [address] [place] [address], [place] [phone] * (ABNORMAL) POCT Glucose, blood (08/05/2024 8:30 PM EST) Glucose POCT 226(H) 70 - 100 mg/dL 08/05/2024 8:30 PM EST [facility] Blood Capillary blood specimen / Unknown 08/05/2024 8:30 PM EST 08/05/2024 8:31 PM EST Junior Billings MD LAB POINT OF CARE TE ST DOCKED DEVICE UNSOLICITED RESULTS Performing Organization Address [facility]/ZIP Co de Phone Number [facility] [address] [place] [address], [place] [phone] * (ABNORMAL) POCT Glucose, blood (08/05/2024 4:07 PM EST) Glucose POCT 142(H) 70 - 100 mg/dL 08/05/2024 4:08 PM EST [facility] Blood Capillary blood specimen / Unknown 08/05/2024 4:07 PM EST 08/05/2024 4:09 PM EST Junior Billings MD LAB POINT OF CARE TE ST DOCKED DEVICE UNSOLICITED RESULTS Performing Organization Address City/[facility]/ZIP Co de Phone Number [facility] [address] [place] [address], [place] [phone] * (ABNORMAL) POCT Glucose, blood (08/05/2024 11:32 AM EST) Glucose POCT 293(H) 70 - 100 mg/dL 08/05/2024 11:33 AM EST [facility] Blood Capillary blood specimen / Unknown 08/05/2024 11:32 AM EST 08/05/2024 11:34 AM EST Junior Billings MD LAB POINT OF CARE TE ST DOCKED DEVICE UNSOLICITED RESULTS [facility] [address] [place] [address], [place] [phone] * (ABNORMAL) POCT Glucose, blood (08/05/2024 7:48 AM EST) Glucose POCT 135(H) 70 - 100 mg/dL 08/05/2024 7:49 AM EST [facility] Blood Capillary blood specimen / Unknown 08/05/2024 7:48 AM EST 08/05/2024 7:50 AM EST Junior Billings MD LAB POINT OF CARE TE ST DOCKED DEVICE UNSOLICITED RESULTS Performing Organization Address City/[facility]/ZIP Co de Phone Number [facility] [address] [place] [address], [place] [phone] * Lavender tube (08/05/2024 5:54 AM EST) Extra Tube Hold for add-ons. 08/05/2024 9:01 AM EST [facility] Comment:Auto resulted. Blood Venous blood specimen / Unknown 08/05/2024 5:54 AM EST 08/05/2024 7:20 AM EST Junior Billings MD LAB BLOOD ORDERABLES [facility] [address] [place] [address], [place] [phone] * Magnesium (08/05/2024 5:54 AM EST) [facility] Magnesium 1.9 1.9 - 2.6 mg/dL LAB CHEMISTRY METHOD 08/05/2024 8:09 AM [facility] Blood Venous blood specimen / Unknown Venipuncture / Unknown 08/05/2024 5:54 AM EST 08/05/2024 7:15 AM EST Junior Billings MD LAB BLOOD ORDERABLES [facility] [address] [place] [address], * (ABNORMAL) Basic metabolic panel (08/05/2024 5:54 AM EST) [facility] Sodium 131(L) 133 - 145 mmol/L LAB CHEMISTRY METHOD 08/05/2024 8:09 AM [facility] Potassium 4.1 3.5 - 5.5 mmol/L LAB CHEMISTRY METHOD 08/05/2024 8:09 AM [facility] Chloride 93(L) 96 - 110 mmol/L LAB CHEMISTRY METHOD 08/05/2024 8:09 AM [facility] CO2 34(H) 21 - 32 mmol/L LAB CHEMISTRY METHOD 08/05/2024 8:09 AM [facility] Anion Gap 4 3 - 11 LAB CHEMISTRY METHOD 08/05/2024 8:09 AM [facility] Glucose 99 70 - 100 mg/dL LAB CHEMISTRY METHOD 08/05/2024 8:09 AM [facility] BUN 16 5 - 25 mg/dL LAB CHEMISTRY METHOD 08/05/2024 8:09 AM [facility] Creatinine 0.82 0.70 - 1.30 mg/dL LAB CHEMISTRY METHOD 08/05/2024 8:09 AM [facility] eGFR 104 >=60 mL/min/1. 73m2 LAB CHEMISTRY METHOD 08/05/2024 8:09 AM EST [facility] Comment:Calculation based on the??Chronic Kidney Disease Epidemiology Collaboration (CKD-EPI) equation refit??without adjustment for race. BUN/Creatinine Ratio 19.5 LAB CHEMISTRY METHOD 08/05/2024 8:09 AM [facility] Calcium 9.0 8.5 - 10.5 mg/dL LAB CHEMISTRY METHOD 08/05/2024 8:09 AM [facility] Blood Venous blood specimen / Unknown Venipuncture / Unknown 08/05/2024 5:54 AM EST 08/05/2024 7:15 AM EST Junior Billings MD LAB BLOOD ORDERABLES Performing Organization Address City/[facility]/ZIP Co de Phone Number [facility] [address] [place] [address], [place] [phone] * (ABNORMAL) POCT Glucose, blood (08/04/2024 8:20 PM EST) Glucose POCT 289(H) 70 - 100 mg/dL 08/04/2024 8:20 PM [facility] POCT Comment RN Notified 08/04/2024 8:20 PM [facility] Blood Capillary blood specimen / Unknown 08/04/2024 8:20 PM EST 08/04/2024 8:21 PM EST Junior Billings MD LAB POINT OF CARE TE ST DOCKED DEVICE UNSOLICITED RESULTS Performing Organization Address City/[facility]/ZIP Co de Phone Number [facility] [address] [place] [address], [place] [phone] * (ABNORMAL) POCT Glucose, blood (08/04/2024 3:57 PM EST) Glucose POCT 125(H) 70 - 100 mg/dL 08/04/2024 3:58 PM [facility] Blood Capillary blood specimen / Unknown 08/04/2024 3:57 PM EST 08/04/2024 3:59 PM EST Junior Billings MD LAB POINT OF CARE TE ST DOCKED DEVICE UNSOLICITED RESULTS Performing Organization Address [facility]/ZIP Co de Phone Number [facility] [address] [place] [address], [place] [phone] * (ABNORMAL) POCT Glucose, blood (08/04/2024 11:09 AM EST) Glucose POCT 169(H) 70 - 100 mg/dL 08/04/2024 11:10 AM EST [facility] Blood Capillary blood specimen / Unknown 08/04/2024 11:09 AM EST 08/04/2024 11:11 AM EST Junior Billings MD LAB POINT OF CARE TE ST DOCKED DEVICE UNSOLICITED RESULTS Performing Organization Address [facility]/ZIP Co de Phone Number [facility] [address] [place] [address], [place] [phone] * (ABNORMAL) POCT Glucose, blood (08/04/2024 8:04 AM EST) Glucose POCT 155(H) 70 - 100 mg/dL 08/04/2024 8:05 AM EST [facility] Blood Capillary blood specimen / Unknown 08/04/2024 8:04 AM EST 08/04/2024 8:06 AM EST Junior Billings MD LAB POINT OF CARE TE ST DOCKED DEVICE UNSOLICITED RESULTS Performing Organization Address City/[facility]/ZIP Co de Phone Number [facility] [address] [place] [address], [place] [phone] * (ABNORMAL) Basic metabolic panel (08/04/2024 5:44 AM EST) Sodium 133 133 - 145 mmol/L LAB CHEMISTRY METHOD 08/04/2024 7:45 AM [facility] Potassium 4.0 3.5 - 5.5 mmol/L LAB CHEMISTRY METHOD 08/04/2024 7:45 AM [facility] Chloride 94(L) 96 - 110 mmol/L LAB CHEMISTRY METHOD 08/04/2024 7:45 AM [facility] CO2 35(H) 21 - 32 mmol/L LAB CHEMISTRY METHOD 08/04/2024 7:45 AM [facility] Anion Gap 4 3 - 11 LAB CHEMISTRY METHOD 08/04/2024 7:45 AM [facility] Glucose 134(H) 70 - 100 mg/dL LAB CHEMISTRY METHOD 08/04/2024 7:45 AM [facility] BUN 17 5 - 25 mg/dL LAB CHEMISTRY METHOD 08/04/2024 7:45 AM [facility] Creatinine 0.79 0.70 - 1.30 mg/dL LAB CHEMISTRY METHOD 08/04/2024 7:45 AM [facility] eGFR 105 >=60 mL/min/1. 73m2 LAB CHEMISTRY METHOD 08/04/2024 7:45 AM [facility] Comment:Calculation based on the??Chronic Kidney Disease Epidemiology Collaboration (CKD-EPI) equation refit??without adjustment for race. BUN/Creatinine Ratio 21.5 LAB CHEMISTRY METHOD 08/04/2024 7:45 AM [facility] Calcium 8.5 8.5 - 10.5 mg/dL LAB CHEMISTRY METHOD 08/04/2024 7:45 AM [facility] Blood Venous blood specimen / Unknown Venipuncture / Unknown 08/04/2024 5:44 AM EST 08/04/2024 7:02 AM EST Junior Billings MD LAB BLOOD ORDERABLES [facility] [address] [place] [address], [place] [phone] * (ABNORMAL) Magnesium (08/04/2024 5:44 AM EST) [facility] Magnesium 1.7(L) 1.9 - 2.6 mg/dL LAB CHEMISTRY METHOD 08/04/2024 7:45 AM EST [facility] Blood Venous blood specimen / Unknown Venipuncture / Unknown 08/04/2024 5:44 AM EST 08/04/2024 7:02 AM EST Junior Billings MD LAB BLOOD ORDERABLES [facility] [address] [place] [address], [place] [phone] * Lavender tube (08/04/2024 5:41 AM EST) [facility] Extra Tube Hold for add-ons. 08/04/2024 9:01 AM EST [facility] Comment:Auto resulted. Blood Venous blood specimen / Unknown 08/04/2024 5:41 AM EST 08/04/2024 7:05 AM EST Junior Billings MD LAB BLOOD ORDERABLES [facility] [address] [place] [address], [place] [phone] * (ABNORMAL) POCT Glucose, blood (08/03/2024 8:38 PM EST) [facility] Glucose POCT 222(H) 70 - 100 mg/dL 08/03/2024 8:38 PM [facility] POCT Comment RN Notified 08/03/2024 8:38 PM [facility] Blood Capillary blood specimen / Unknown 08/03/2024 8:38 PM EST 08/03/2024 8:39 PM EST Junior Billings MD LAB POINT OF CARE TE ST DOCKED DEVICE UNSOLICITED RESULTS [facility] [address] [place] [address], * IR Repair CVAD w Subq Port or Pump (08/03/2024 6:18 PM EST) Anatomical Region Laterality Modality Interventional R adiology 08/03/2024 6:43 PM EST Narrative 08/03/2024 6:50 PM EST Attempted port revision Indication: Malpositioned right IJ port. ??Right IJ port is noted looped in the right neck. Fluoroscopic time: 15.1 minutes Informed written consent was obtained prior to the procedure. ??A application development consultant image of the right neck was obtained demonstrating redundant looping of the right IJ catheter. The right groin was prepped and draped in usual sterile fashion. ??Utilizing micropuncture technique access was obtained into the right common femoral vein. ??A wire was advanced centrally. ??A 6-Micronesian sheath was then advanced over the wire. ??Utilizing combination of 0.035 wires including a Mullins and Amplatz wires and angled 5-Micronesian Kumpe catheter and 5-Micronesian Brandi catheter multiple times were made to [...] Signed Date: 08/03/2024 18:50 ET Workstation ID: [id number] Transcribed By: Self Edit Transcribed Date: 08/03/2024 [...] vein. A wire was advanced centrally. A 6-Micronesian sheathwas then advanced over the wire. Utilizing combination of 0.035 wiresincluding a Mullins and Amplatz wires and angled 5- Micronesian Kumpe catheter and5-Micronesian Brandi catheter multiple times were made to [...] tiprepositioning. -------- FINAL REPORT -------- Dictated By: Gerson Alvarez Dictated Date: 08/03/2024 18:43 ET Assigned Physician: Gerson Alvarez Reviewed and Electronically Signed By: Gerson Alvarez Signed Date: 08/03/2024 18:50 ET Workstation ID: [id number] Transcribed By: Self Edit Transcribed Date: 08/03/2024 18:43 ET Gerson Alvarez MD IMG IR PROCEDURES * (ABNORMAL) POCT Glucose, blood (08/03/2024 4:13 PM EST) Glucose POCT 129(H) 70 - 100 mg/dL 08/03/2024 4:13 PM EST [facility] [facility] Blood Capillary blood specimen / Unknown 08/03/2024 4:13 PM EST 08/03/2024 4:14 PM EST Junior Billings MD LAB POINT OF CARE TE ST DOCKED DEVICE UNSOLICITED RESULTS [facility] [address] [place] [address], * (ABNORMAL) POCT Glucose, blood (08/03/2024 11:22 AM EST) Glucose POCT 154(H) 70 - 100 mg/dL 08/03/2024 11:23 AM EST [facility] Blood Capillary blood specimen / Unknown 08/03/2024 11:22 AM EST 08/03/2024 11:24 AM EST Junior Billings MD LAB POINT OF CARE TE ST DOCKED DEVICE UNSOLICITED RESULTS Performing Organization Address [facility]/ZIP Co de Phone Number [facility] [address] [place] [address], [place] [phone] * (ABNORMAL) POCT Glucose, blood (08/03/2024 8:06 AM EST) Glucose POCT 143(H) 70 - 100 mg/dL 08/03/2024 8:06 AM EST [facility] Blood Capillary blood specimen / Unknown 08/03/2024 8:06 AM EST 08/03/2024 8:07 AM EST Junior Billings MD LAB POINT OF CARE TE ST DOCKED DEVICE UNSOLICITED RESULTS Performing Organization Address [facility]/ZIP Co de Phone Number [facility] [address] [place] [address], [place] [phone] * Lavender tube (08/03/2024 6:20 AM EST) Extra Tube Hold for add-ons. 08/03/2024 9:02 AM EST [facility] Comment:Auto resulted. Blood Venous blood specimen / Unknown 08/03/2024 6:20 AM EST 08/03/2024 7:36 AM EST Junior Billings MD LAB BLOOD ORDERABLES Performing Organization Address City/[facility]/ZIP Co de Phone Number [facility] [address] [place] [address], [place] [phone] * (ABNORMAL) Magnesium (08/03/2024 6:20 AM EST) Magnesium 1.8(L) 1.9 - 2.6 mg/dL LAB CHEMISTRY METHOD 08/03/2024 8:23 AM EST [facility] Blood Venous blood specimen / Unknown Venipuncture / Unknown 08/03/2024 6:20 AM EST 08/03/2024 7:35 AM EST Ruddy Carrero MD LAB BLOOD ORDER ABDIEL [facility] [address] [place] [address], * (ABNORMAL) Basic metabolic panel (08/03/2024 6:20 AM EST) Sodium 132(L) 133 - 145 mmol/L LAB CHEMISTRY METHOD 08/03/2024 8:41 AM [facility] Potassium 4.0 3.5 - 5.5 mmol/L LAB CHEMISTRY METHOD 08/03/2024 8:41 AM [facility] Chloride 95(L) 96 - 110 mmol/L LAB CHEMISTRY METHOD 08/03/2024 8:41 AM [facility] CO2 33(H) 21 - 32 mmol/L LAB CHEMISTRY METHOD 08/03/2024 8:41 AM [facility] Anion Gap 4 3 - 11 LAB CHEMISTRY METHOD 08/03/2024 8:41 AM [facility] Glucose 126(H) 70 - 100 mg/dL LAB CHEMISTRY METHOD 08/03/2024 8:41 AM [facility] BUN 15 5 - 25 mg/dL LAB CHEMISTRY METHOD 08/03/2024 8:41 AM [facility] Creatinine 0.68(L) 0.70 - 1.30 mg/dL LAB CHEMISTRY METHOD 08/03/2024 8:41 AM [facility] eGFR 110 >=60 mL/min/1. 73m2 LAB CHEMISTRY METHOD 08/03/2024 8:41 AM [facility] Comment:Calculation based on the??Chronic Kidney Disease Epidemiology Collaboration (CKD-EPI) equation refit??without adjustment for race. BUN/Creatinine Ratio 22.1 LAB CHEMISTRY METHOD 08/03/2024 8:41 AM EST [facility] Calcium 9.1 8.5 - 10.5 mg/dL LAB CHEMISTRY METHOD 08/03/2024 8:41 AM EST [facility] Blood Venous blood specimen / Unknown Venipuncture / Unknown 08/03/2024 6:20 AM EST 08/03/2024 7:35 AM EST Ruddy Carrero MD LAB BLOOD ORDER ABDIEL [facility] [address] [place] [address], [place] [phone] * (ABNORMAL) POCT Glucose, blood (08/02/2024 8:55 PM EST) Glucose POCT 148(H) 70 - 100 mg/dL 08/02/2024 8:56 PM EST [facility] Blood Capillary blood specimen / Unknown 08/02/2024 8:55 PM EST 08/02/2024 8:57 PM EST Ruddy Carrero MD LAB POINT OF CA RE TEST DOCKED DEVICE UNSOLICITED RESULTS Performing Organization Address City/[facility]/ZIP Co de Phone Number [facility] [address] [place] [address], [place] [phone] * (ABNORMAL) POCT Glucose, blood (08/02/2024 3:59 PM EST) Glucose POCT 172(H) 70 - 100 mg/dL 08/02/2024 4:00 PM EST [facility] Blood Capillary blood specimen / Unknown 08/02/2024 3:59 PM EST 08/02/2024 4:01 PM EST Ruddy Carrero MD LAB POINT OF CA RE TEST DOCKED DEVICE UNSOLICITED RESULTS [facility] [address] [place] [address], * (ABNORMAL) POCT Glucose, blood (08/02/2024 11:03 AM EST) Glucose POCT 146(H) 70 - 100 mg/dL 08/02/2024 11:03 AM EST [facility] Blood Capillary blood specimen / Unknown 08/02/2024 11:03 AM EST 08/02/2024 11:04 AM EST Ruddy Carrero MD LAB POINT OF CA RE TEST DOCKED DEVICE UNSOLICITED RESULTS [facility] [address] [place] [address], * IR Asp Abscess/Hematoma/Bulla/Cyst (08/02/2024 10:24 AM [...] time. -------- FINAL REPORT -------- Dictated By: Gersno Alvarez Dictated Date: 08/02/2024 10:28 ET Assigned Physician: Gerson Alvarez Reviewed and Electronically Signed By: Gerson Alvarez Signed Date: 08/02/2024 10:35 ET Workstation ID: [id number] Transcribed By: Self Edit Transcribed Date: 08/02/2024 [...] Signed Date: 08/02/2024 10:35 ET Workstation ID: [id number] Transcribed By: Self Edit Transcribed Date: 08/02/2024 10:28 ET Ruddy Carrero MD [facility] * (ABNORMAL) CBC auto differential (08/02/2024 7:56 AM EST) WBC 8.1 4.8 - 10.8 K/[facility] HEMETOLOGY METHOD 08/02/2024 8:08 AM EST [facility] RBC 5.30 4.50 - 5.50 M/[facility] HEMETOLOGY METHOD 08/02/2024 8:08 AM [facility] Hemoglobin 11.5(L) 13.5 - 17.5 g/dL LAB HEMETOLOGY METHOD 08/02/2024 8:08 AM [facility] Hematocrit 38.9(L) 42.0 - 54.0 % LAB HEMETOLOGY METHOD 08/02/2024 8:08 AM [facility] MCV 73.5(L) 79.0 - 98.0 FL LAB HEMETOLOGY METHOD 08/02/2024 8:08 AM [facility] MCH 21.7(L) 27.0 - 32.0 pcg LAB HEMETOLOGY METHOD 08/02/2024 8:08 AM [facility] MCHC 29.6(L) 32.0 - 37.0 g/dL LAB HEMETOLOGY METHOD 08/02/2024 8:08 AM [facility] RDW 17.9(H) 11.0 - 15.0 % LAB HEMETOLOGY METHOD 08/02/2024 8:08 AM [facility] Platelets 208 130 - 400 K/mcL LAB HEMETOLOGY METHOD 08/02/2024 8:08 AM [facility] MPV 9.4 7.0 - 11.0 FL LAB HEMETOLOGY METHOD 08/02/2024 8:08 AM [facility] NRBC 0.0 <1.0 % LAB HEMETOLOGY METHOD 08/02/2024 8:08 AM [facility] NRBC Absolute 0.00 <0.10 K/mcL LAB HEMETOLOGY METHOD 08/02/2024 8:08 AM [facility] Neutrophils Relative 63.6 % LAB HEMETOLOGY METHOD 08/02/2024 8:08 AM [facility] Lymphocytes Relative 14.2 % LAB HEMETOLOGY METHOD 08/02/2024 8:08 AM [facility] Monocytes Relative 18.1 % LAB HEMETOLOGY METHOD 08/02/2024 8:08 AM [facility] Eosinophils Relative 3.3 % LAB HEMETOLOGY METHOD 08/02/2024 8:08 AM [facility] Basophils Relative 0.4 % LAB HEMETOLOGY METHOD 08/02/2024 8:08 AM [facility] Immature Granulocytes Relative 0.4 % LAB HEMETOLOGY METHOD 08/02/2024 8:08 AM [facility] Neutrophils Absolute 5.16 1.50 - 7.00 K/mcL LAB HEMETOLOGY METHOD 08/02/2024 8:08 AM [facility] Lymphocytes Absolute 1.15 1.00 - 5.00 K/mcL LAB HEMETOLOGY METHOD 08/02/2024 8:08 AM [facility] Monocytes Absolute 1.47(H) 0.20 - 1.00 K/mcL LAB HEMETOLOGY METHOD 08/02/2024 8:08 AM [facility] Eosinophils Absolute 0.27 0.00 - 0.50 K/mcL LAB HEMETOLOGY METHOD 08/02/2024 8:08 AM [facility] Basophils Absolute 0.03 0.00 - 0.20 K/mcL LAB HEMETOLOGY METHOD 08/02/2024 8:08 AM [facility] Immature Granulocytes Absolute 0.03 0.00 - 0.03 K/mcL LAB HEMETOLOGY METHOD 08/02/2024 8:08 AM [facility] Blood Venous blood specimen / Unknown Venipuncture / Unknown 08/02/2024 7:56 AM EST 08/02/2024 8:02 AM EST Ruddy Carrero MD LAB BLOOD ORDER ABDIEL [facility] [address] [place] [address], * (ABNORMAL) Basic metabolic panel (08/02/2024 7:56 AM EST) Sodium 132(L) 133 - 145 mmol/L LAB CHEMISTRY METHOD 08/02/2024 8:39 AM [facility] Potassium 3.9 3.5 - 5.5 mmol/L LAB CHEMISTRY METHOD 08/02/2024 8:39 AM [facility] Chloride 96 96 - 110 mmol/L LAB CHEMISTRY METHOD 08/02/2024 8:39 AM [facility] CO2 34(H) 21 - 32 mmol/L LAB CHEMISTRY METHOD 08/02/2024 8:39 AM [facility] Anion Gap 2(L) 3 - 11 LAB CHEMISTRY METHOD 08/02/2024 8:39 AM [facility] Glucose 122(H) 70 - 100 mg/dL LAB CHEMISTRY METHOD 08/02/2024 8:39 AM [facility] BUN 14 5 - 25 mg/dL LAB CHEMISTRY METHOD 08/02/2024 8:39 AM [facility] Creatinine 0.73 0.70 - 1.30 mg/dL LAB CHEMISTRY METHOD 08/02/2024 8:39 AM [facility] eGFR 107 >=60 mL/min/1. 73m2 LAB CHEMISTRY METHOD 08/02/2024 8:39 AM [facility] Comment:Calculation based on the??Chronic Kidney Disease Epidemiology Collaboration (CKD-EPI) equation refit??without adjustment for race. BUN/Creatinine Ratio 19.2 LAB CHEMISTRY METHOD 08/02/2024 8:39 AM [facility] Calcium 8.6 8.5 - 10.5 mg/dL LAB CHEMISTRY METHOD 08/02/2024 8:39 AM [facility] Blood Venous blood specimen / Unknown Venipuncture / Unknown 08/02/2024 7:56 AM EST 08/02/2024 8:02 AM EST Ruddy Carrero MD LAB BLOOD ORDER ABDIEL [facility] [address] [place] [address], [place] [phone] * (ABNORMAL) Magnesium (08/02/2024 7:56 AM EST) Magnesium 1.7(L) 1.9 - 2.6 mg/dL LAB CHEMISTRY METHOD 08/02/2024 8:37 AM EST [facility] Blood Venous blood specimen / Unknown Venipuncture / Unknown 08/02/2024 7:56 AM EST 08/02/2024 8:02 AM EST Ruddy Carrero MD LAB BLOOD ORDER ABDIEL Performing Organization Address City/[facility]/ZIP Co de Phone Number [facility] [address] [place] [address], [place] [phone] * Phosphorus (08/02/2024 7:56 AM EST) [facility] Phosphorus 3.6 2.5 - 4.5 mg/dL LAB CHEMISTRY METHOD 08/02/2024 8:37 AM EST [facility] Blood Venous blood specimen / Unknown Venipuncture / Unknown 08/02/2024 7:56 AM EST 08/02/2024 8:02 AM EST Ruddy Carrero MD LAB BLOOD ORDER ABDIEL [facility] [address] [place] [address], [place] [phone] * (ABNORMAL) POCT Glucose, blood (08/02/2024 7:53 AM EST) Glucose POCT 152(H) 70 - 100 mg/dL 08/02/2024 7:54 AM EST [facility] Blood Capillary blood specimen / Unknown 08/02/2024 7:53 AM EST 08/02/2024 7:55 AM EST Ruddy Carrero MD LAB POINT OF CA RE TEST DOCKED DEVICE UNSOLICITED RESULTS [facility] [address] [place] [address], [place] [phone] * (ABNORMAL) POCT Glucose, blood (08/01/2024 7:48 PM EST) Glucose POCT 210(H) 70 - 100 mg/dL 08/01/2024 7:49 PM EST [facility] Blood Capillary blood specimen / Unknown 08/01/2024 7:48 PM EST 08/01/2024 7:49 PM EST Ruddy Carrero MD LAB POINT OF CA RE TEST DOCKED DEVICE UNSOLICITED RESULTS Performing Organization Address City/[facility]/ZIP Co de Phone Number [facility] [address] [place] [address], [place] [phone] * (ABNORMAL) Prothrombin time with INR (08/01/2024 4:46 PM EST) Protime 15.2(H) 10.6 - 13.9 sec LAB COAGULATION METHOD 08/01/2024 5:24 PM EST [facility] INR 1.2 LAB COAGULATION METHOD 08/01/2024 5:24 PM EST [facility] Blood Venous blood specimen / Unknown Venipuncture / Unknown 08/01/2024 4:46 PM EST 08/01/2024 5:05 PM EST Ruddy Carrero MD LAB BLOOD ORDER ABDIEL [facility] [address] [place] [address], [place] [phone] * (ABNORMAL) POCT Glucose, blood (08/01/2024 4:06 PM EST) Glucose POCT 119(H) 70 - 100 mg/dL 08/01/2024 4:06 PM EST [facility] Blood Capillary blood specimen / Unknown 08/01/2024 4:06 PM EST 08/01/2024 4:07 PM EST Ruddy Carrero MD LAB POINT OF CA RE TEST DOCKED DEVICE UNSOLICITED RESULTS [facility] [address] [place] [address], [place] [phone] * (ABNORMAL) POCT Glucose, blood (08/01/2024 10:50 AM EST) Glucose POCT 180(H) 70 - 100 mg/dL 08/01/2024 10:50 AM EST [facility] Blood Capillary blood specimen / Unknown 08/01/2024 10:50 AM EST 08/01/2024 10:51 AM EST Ruddy Carrero MD LAB POINT OF CA RE TEST DOCKED DEVICE UNSOLICITED RESULTS [facility] [address] [place] [address], [place] [phone] * (ABNORMAL) POCT Glucose, blood (08/01/2024 8:01 AM EST) Glucose POCT 133(H) 70 - 100 mg/dL 08/01/2024 8:01 AM EST [facility] Blood Capillary blood specimen / Unknown 08/01/2024 8:01 AM EST 08/01/2024 8:02 AM EST Ruddy Carrero MD LAB POINT OF CA RE TEST DOCKED DEVICE UNSOLICITED RESULTS Performing Organization Address [facility] Co de Phone Number [facility] [address] [place] [address], [place] [phone] * (ABNORMAL) POCT Glucose, blood (07/31/2024 4:14 PM EST) Glucose POCT 132(H) 70 - 100 mg/dL 07/31/2024 4:15 PM EST [facility] Blood Capillary blood specimen / Unknown 07/31/2024 4:14 PM EST 07/31/2024 4:16 PM EST Ruddy Carrero MD LAB POINT OF CA RE TEST DOCKED DEVICE UNSOLICITED RESULTS Performing Organization Address [facility] Co de Phone Number [facility] [address] [place] [address], [place] [phone] * (ABNORMAL) POCT Glucose, blood (07/31/2024 11:39 AM EST) Glucose POCT 179(H) 70 - 100 mg/dL 07/31/2024 11:43 AM EST [facility] Blood Capillary blood specimen / Unknown 07/31/2024 11:39 AM EST 07/31/2024 11:44 AM EST Ruddy Carrero MD LAB POINT OF CA RE TEST DOCKED DEVICE UNSOLICITED RESULTS Performing Organization Address City/[facility]/ZIP Co de Phone Number [facility] [address] [place] [address], [place] [phone] * (ABNORMAL) Alpha fetoprotein tumor marker (07/31/2024 7:51 AM EST) AFP 862.8(H) 0.0 - 8.0 ng/mL LAB CHEMISTRY METHOD 08/01/2024 12:42 PM [facility] Blood Venous blood specimen / Unknown Venipuncture / Unknown 07/31/2024 7:51 AM EST 07/31/2024 7:59 AM EST [facility] - 08/01/2024 12:42 PM EST The Siemens Advia Centaur Chemiluminescent Immunoassay is used. Results obtained with different assay methods or kits cannot be used interchangeably. Results cannot be interpreted as absolute evidence of the presence or absence of malignant disease. Adal Goldstein MD LAB BLOOD O RDERABLES [facility] [address] [place] [address], * (ABNORMAL) CBC auto differential (07/31/2024 7:51 AM EST) WBC 7.4 4.8 - 10.8 K/mcL LAB HEMETOLOGY METHOD 07/31/2024 8:21 AM [facility] RBC 5.10 4.50 - 5.50 M/[facility] HEMETOLOGY METHOD 07/31/2024 8:21 AM [facility] Hemoglobin 11.0(L) 13.5 - 17.5 g/dL LAB HEMETOLOGY METHOD 07/31/2024 8:21 AM [facility] Hematocrit 38.4(L) 42.0 - 54.0 % LAB HEMETOLOGY METHOD 07/31/2024 8:21 AM [facility] MCV 76.0(L) 79.0 - 98.0 FL LAB HEMETOLOGY METHOD 07/31/2024 8:21 AM [facility] MCH 21.8(L) 27.0 - 32.0 pcg LAB HEMETOLOGY METHOD 07/31/2024 8:21 AM [facility] MCHC 28.6(L) 32.0 - 37.0 g/dL LAB HEMETOLOGY METHOD 07/31/2024 8:21 AM [facility] RDW 18.6(H) 11.0 - 15.0 % LAB HEMETOLOGY METHOD 07/31/2024 8:21 AM [facility] Platelets 193 130 - 400 K/mcL LAB HEMETOLOGY METHOD 07/31/2024 8:21 AM [facility] MPV 9.7 7.0 - 11.0 FL LAB HEMETOLOGY METHOD 07/31/2024 8:21 AM [facility] NRBC 0.0 <1.0 % LAB HEMETOLOGY METHOD 07/31/2024 8:21 AM [facility] NRBC Absolute 0.00 <0.10 K/mcL LAB HEMETOLOGY METHOD 07/31/2024 8:21 AM [facility] Neutrophils Relative 65.1 % LAB HEMETOLOGY METHOD 07/31/2024 8:21 AM [facility] Lymphocytes Relative 14.4 % LAB HEMETOLOGY METHOD 07/31/2024 8:21 AM [facility] Monocytes Relative 16.3 % LAB HEMETOLOGY METHOD 07/31/2024 8:21 AM [facility] Eosinophils Relative 3.1 % LAB HEMETOLOGY METHOD 07/31/2024 8:21 AM [facility] Basophils Relative 0.4 % LAB HEMETOLOGY METHOD 07/31/2024 8:21 AM [facility] Immature Granulocytes Relative 0.7 % LAB HEMETOLOGY METHOD 07/31/2024 8:21 AM [facility] Neutrophils Absolute 4.82 1.50 - 7.00 K/mcL LAB HEMETOLOGY METHOD 07/31/2024 8:21 AM [facility] Lymphocytes Absolute 1.07 1.00 - 5.00 K/mcL LAB HEMETOLOGY METHOD 07/31/2024 8:21 AM EST [facility] Monocytes Absolute 1.21(H) 0.20 - 1.00 K/mcL LAB HEMETOLOGY METHOD 07/31/2024 8:21 AM EST [facility] Eosinophils Absolute 0.23 0.00 - 0.50 K/mcL LAB HEMETOLOGY METHOD 07/31/2024 8:21 AM EST [facility] Basophils Absolute 0.03 0.00 - 0.20 K/[facility] HEMETOLOGY METHOD 07/31/2024 8:21 AM EST [facility] Immature Granulocytes Absolute 0.05(H) 0.00 - 0.03 K/[facility] HEMETOLOGY METHOD 07/31/2024 8:21 AM [facility] Blood Venous blood specimen / Unknown Venipuncture / Unknown 07/31/2024 7:51 AM EST 07/31/2024 7:59 AM EST Ruddy Carrero MD LAB BLOOD ORDER ABDIEL [facility] [address] [place] [address], [place] [phone] * (ABNORMAL) Magnesium (07/31/2024 7:51 AM EST) Magnesium 1.7(L) 1.9 - 2.6 mg/dL LAB CHEMISTRY METHOD 07/31/2024 8:33 AM EST [facility] Blood Venous blood specimen / Unknown Venipuncture / Unknown 07/31/2024 7:51 AM EST 07/31/2024 7:59 AM EST Ruddy Carrero MD LAB BLOOD ORDER ABDIEL [facility] [address] [place] [address], [place] [phone] * (ABNORMAL) Basic metabolic panel (07/31/2024 7:51 AM EST) Sodium 135 133 - 145 mmol/L LAB CHEMISTRY METHOD 07/31/2024 8:33 AM [facility] Potassium 4.1 3.5 - 5.5 mmol/L LAB CHEMISTRY METHOD 07/31/2024 8:33 AM [facility] Chloride 99 96 - 110 mmol/L LAB CHEMISTRY METHOD 07/31/2024 8:33 AM [facility] CO2 32 21 - 32 mmol/L LAB CHEMISTRY METHOD 07/31/2024 8:33 AM [facility] Anion Gap 4 3 - 11 LAB CHEMISTRY METHOD 07/31/2024 8:33 AM [facility] Glucose 131(H) 70 - 100 mg/dL LAB CHEMISTRY METHOD 07/31/2024 8:33 AM [facility] BUN 11 5 - 25 mg/dL LAB CHEMISTRY METHOD 07/31/2024 8:33 AM [facility] Creatinine 0.55(L) 0.70 - 1.30 mg/dL LAB CHEMISTRY METHOD 07/31/2024 8:33 AM [facility] eGFR 117 >=60 mL/min/1. 73m2 LAB CHEMISTRY METHOD 07/31/2024 8:33 AM [facility] Comment:Calculation based on the??Chronic Kidney Disease Epidemiology Collaboration (CKD-EPI) equation refit??without adjustment for race. BUN/Creatinine Ratio 20.0 LAB CHEMISTRY METHOD 07/31/2024 8:33 AM [facility] Calcium 8.8 8.5 - 10.5 mg/dL LAB CHEMISTRY METHOD 07/31/2024 8:33 AM [facility] Blood Venous blood specimen / Unknown Venipuncture / Unknown 07/31/2024 7:51 AM EST 07/31/2024 7:59 AM EST Ruddy Carrero MD LAB BLOOD ORDER ABDIEL Performing Organization Address City/[facility]/ZIP Co de Phone Number [facility] [address] [place] [address], * B-type natriuretic peptide (07/31/2024 7:51 AM EST) BNP 89 <=100 pcg/mL LAB CHEMISTRY METHOD 07/31/2024 8:42 AM EST [facility] Blood Venous blood specimen / Unknown Venipuncture / Unknown 07/31/2024 7:51 AM EST 07/31/2024 7:59 AM EST Ruddy Carrero MD LAB BLOOD ORDER ABDIEL Performing Organization Address [facility]/ZIP Co de Phone Number [facility] [address] [place] [address], * (ABNORMAL) TRANSTHORACIC ECHOCARDIOGRAM (TTE) COMPLETE W/ CONTRAST (07/30/2024 11:15 AM EST) Pathologist [facility] Left Atrium Minor [place] 5.9 cm CV PACS Left Atrium Major [place] 6.0 cm CV PACS LA Area Sys [...] Area 4.2 cm2 CV PACS MV Deceleration Logan 4.0 m/s2 CV PACS E Wave Deceleration [...] Chest 2 Views (07/30/2024 8:44 AM EST) Anatomical Region Laterality Modality Body Radiographic Kera ging 07/30/2024 9:04 AM EST Impressions 07/30/2024 9:08 AM EST Impression: 1. Malpositioned right Port-A-Cath, similar to the previous study, but a change from the insertion procedure imaging from 12/05/23. 2. No active pulmonary process. Telerad PA ([id number]) -------- FINAL REPORT -------- Dictated By: Kimberley Becerra Dictated Date: 07/30/2024 09:04 ET Assigned Physician: Kimberley Becerra Reviewed and Electronically Signed By: Kimberlye Becerra Signed Date: 07/30/2024 09:08 ET Workstation ID: [id number] Transcribed By: Self Edit Transcribed Date: 07/30/2024 [...] 12/05/23. 2. No active pulmonary process. Telerad LAYLA ([id number]) -------- FINAL REPORT -------- Dictated By: Kimberley Becerra Dictated Date: 07/30/2024 09:04 ET Assigned Physician: Kimberley Becerra Reviewed and Electronically Signed By: Kimberley Becerra Signed Date: 07/30/2024 09:08 ET Workstation ID: [id number] Transcribed By: Self Edit Transcribed Date: 07/30/2024 09:04 ET Vitaliy Cantu MD IMG XR PROCEDURES * Vascular US duplex lower extremity venous bilateral (07/30/2024 8:35 AM EST) Anatomical Region Laterality Modality Vascular, Abdomen Ultrasound 07/30/2024 8:55 AM EST Impressions 07/30/2024 8:55 AM EST Impression: No evidence of deep vein thrombosis in the femoral-popliteal venous segments of both lower extremities. [id number] -------- FINAL REPORT -------- Dictated By: Kimberley Becerra Dictated Date: 07/30/2024 08:55 ET Assigned Physician: Kimberley Becerra Reviewed and Electronically Signed By: Kimberley Becerra Signed Date: 07/30/2024 08:55 ET Workstation ID: [id number] Transcribed By: Self Edit Transcribed Date: 07/30/2024 [...] the femoral-popliteal venoussegments of both lower extremities. [id number] -------- FINAL REPORT -------- Dictated By: Kimberley Becerra Dictated Date: 07/30/2024 08:55 ET Assigned Physician: Kimberley Becerra Reviewed and Electronically Signed By: Kimberley Becerra Signed Date: 07/30/2024 08:55 ET Workstation ID: [id number] Transcribed By: Self Edit Transcribed Date: 07/30/2024 08:55 ET Vitaliy Cantu MD CV VASCULAR PROCEDUR ES * CT Abdomen Pelvis w Contrast (07/30/2024 3:53 AM EST) Anatomical Region Laterality Modality Body Computed Tomogra [...] Pickens MD on 07/30/2024 05:34:55 [place] [facility] [place] * Blood Culture, Peripheral #1 (07/30/2024 3:10 AM EST) Culture, Blood No growth at 5 days LAB MICROBIOLOGY METHOD 08/04/2024 6:01 AM EST [facility] ([facility]) [facility] Blood Venous blood specimen / Unknown Venipuncture / Unknown 07/30/2024 3:10 AM EST 07/30/2024 3:30 AM EST Edwar RICH LAB MICROBIOLOGY - G ENERAL ORDERABLES [facility] [address] [place] [address], [place] [phone] * Blood Culture, Peripheral #2 (07/30/2024 3:00 AM EST) Culture, Blood No growth at 5 days LAB MICROBIOLOGY METHOD 08/04/2024 6:01 AM EST [facility] Blood Venous blood specimen / Unknown Venipuncture / Unknown 07/30/2024 3:00 AM EST 07/30/2024 3:15 AM EST Edwar RICH LAB MICROBIOLOGY - G ENERAL ORDERABLES [facility] [address] [place] [address], [place] [phone] * US Scrotum and Contents (07/29/2024 7:48 PM EST) Anatomical Region Laterality Modality Body Ultrasound 07/29/2024 [...] Vitaliy Cantu MD IMG US PROCEDURES * Quintana urine culture tube (07/29/2024 6:58 PM EST) Extra Tube Hold for add-ons. 07/29/2024 9:01 PM [facility] Comment:Auto resulted. Urine Urine specimen obtained by clean catch procedure / Unknown Non-blood Collection / Unknown 07/29/2024 6:58 PM EST 07/29/2024 7:55 PM EST Vitaliy Cantu MD LAB URINE ORDERABLES [facility] [address] [place] [address], * (ABNORMAL) Urinalysis with reflex microscopic and culture (07/29/2024 6:58 PM EST) Pathologist [facility] [place] [facility] [place] Urine 1.027 1.003 - 1.030 LAB URINALYSIS - AUTOMATED METHOD 07/29/2024 8:05 PM [facility] pH, Urine 6.5 5.0 - 8.0 pH LAB URINALYSIS - AUTOMATED METHOD 07/29/2024 8:05 PM [facility] Leukocytes, Urine Negative Negative LAB URINALYSIS - AUTOMATED METHOD 07/29/2024 8:05 PM [facility] Nitrite, Urine Negative Negative LAB URINALYSIS - AUTOMATED METHOD 07/29/2024 8:05 PM [facility] Protein, Urine 100(A) <=Trace mg/dL LAB URINALYSIS - AUTOMATED METHOD 07/29/2024 8:05 PM [facility] Glucose, Urine Negative Negative mg/dL LAB URINALYSIS - AUTOMATED METHOD 07/29/2024 8:05 PM [facility] Ketones, Urine Negative Negative mg/dL LAB URINALYSIS - AUTOMATED METHOD 07/29/2024 8:05 PM [facility] Urobilinogen, Urine 1.0 0.2 - 1.0 mg/dL LAB URINALYSIS - AUTOMATED METHOD 07/29/2024 8:05 PM [facility] Bilirubin, Urine Negative Negative LAB URINALYSIS - AUTOMATED METHOD 07/29/2024 8:05 PM [facility] Blood, Urine Negative Negative LAB URINALYSIS - AUTOMATED METHOD 07/29/2024 8:05 PM [facility] RBC, Urine 7.2(H) 0 - 4 /HPF LAB URINALYSIS - AUTOMATED METHOD 07/29/2024 8:05 PM [facility] WBC, Urine 1.7 0 - 4 /HPF LAB URINALYSIS - AUTOMATED METHOD 07/29/2024 8:05 PM [facility] Squamous Epithelial, Urine 30 0 - 60 /LPF LAB URINALYSIS - AUTOMATED METHOD 07/29/2024 8:05 PM [facility] Bacteria, Urine Negative Negative /HPF LAB URINALYSIS - AUTOMATED METHOD 07/29/2024 8:05 PM [facility] Hyaline Casts, Urine 0.8 0 - 3 /LPF LAB URINALYSIS - AUTOMATED METHOD 07/29/2024 8:05 PM [facility] Urine Urine specimen obtained by clean catch procedure / Unknown Non-blood Collection / Unknown 07/29/2024 6:58 PM EST 07/29/2024 7:56 PM EST Vitaliy Cantu MD LAB URINE ORDERABLES Performing Organization Address City/State/[facility] Co de Phone Number [facility] [address] [place] [address], * (ABNORMAL) C-reactive protein (07/29/2024 6:53 PM EST) [facility] C-Reactive Protein 1.11(H) <=0.50 mg/dL LAB CHEMISTRY METHOD 07/31/2024 12:52 AM EST [facility] Blood Venous blood specimen / Unknown Venipuncture / Unknown 07/29/2024 6:53 PM EST 07/29/2024 7:58 PM EST Vitaliy Cantu MD LAB BLOOD ORDERABLES Performing Organization Address City/[facility]/ZIP Co de Phone Number [facility] [address] [place] [address], * (ABNORMAL) Thyroid stimulating hormone (07/29/2024 6:53 PM EST) [facility] TSH 15.05(H) 0.40 - 4.00 mcIU/mL LAB CHEMISTRY METHOD 07/30/2024 8:32 AM EST [facility] Blood Venous blood specimen / Unknown Venipuncture / Unknown 07/29/2024 6:53 PM EST 07/29/2024 7:58 PM EST Vitaliy Cantu MD LAB BLOOD ORDERABLES [facility] [address] [place] [address], [place] [phone] * (ABNORMAL) Hemoglobin A1c (07/29/2024 6:53 PM EST) [facility] Hemoglobin A1C 8.2(H) <6.5 % LAB CHEMISTRY METHOD 07/30/2024 8:34 AM EST [facility] Mean Bld Glu Estim. 189 mg/dL LAB CHEMISTRY METHOD 07/30/2024 8:34 AM [facility] Blood Venous blood specimen / Unknown Venipuncture / Unknown 07/29/2024 6:53 PM EST 07/29/2024 7:58 PM EST Vitaliy Cantu MD LAB BLOOD ORDERABLES [facility] [address] [place] [address], * (ABNORMAL) CBC auto differential (07/29/2024 6:53 PM EST) WBC 6.4 4.8 - 10.8 K/mcL LAB HEMETOLOGY METHOD 07/29/2024 8:04 PM [facility] RBC 5.20 4.50 - 5.50 M/mcL LAB HEMETOLOGY METHOD 07/29/2024 8:04 PM [facility] Hemoglobin 11.3(L) 13.5 - 17.5 g/dL LAB HEMETOLOGY METHOD 07/29/2024 8:04 PM [facility] Hematocrit 39.6(L) 42.0 - 54.0 % LAB HEMETOLOGY METHOD 07/29/2024 8:04 PM [facility] MCV 76.7(L) 79.0 - 98.0 FL LAB HEMETOLOGY METHOD 07/29/2024 8:04 PM [facility] MCH 21.9(L) 27.0 - 32.0 pcg LAB HEMETOLOGY METHOD 07/29/2024 8:04 PM [facility] MCHC 28.5(L) 32.0 - 37.0 g/dL LAB HEMETOLOGY METHOD 07/29/2024 8:04 PM [facility] RDW 18.6(H) 11.0 - 15.0 % LAB HEMETOLOGY METHOD 07/29/2024 8:04 PM [facility] Platelets 245 130 - 400 K/mcL LAB HEMETOLOGY METHOD 07/29/2024 8:04 PM [facility] MPV 10.3 7.0 - 11.0 FL LAB HEMETOLOGY METHOD 07/29/2024 8:04 PM [facility] NRBC 0.0 <1.0 % LAB HEMETOLOGY METHOD 07/29/2024 8:04 PM [facility] NRBC Absolute 0.00 <0.10 K/mcL LAB HEMETOLOGY METHOD 07/29/2024 8:04 PM [facility] Neutrophils Relative 60.0 % LAB HEMETOLOGY METHOD 07/29/2024 8:04 PM [facility] Lymphocytes Relative 20.8 % LAB HEMETOLOGY METHOD 07/29/2024 8:04 PM [facility] Monocytes Relative 14.6 % LAB HEMETOLOGY METHOD 07/29/2024 8:04 PM [facility] Eosinophils Relative 3.6 % LAB HEMETOLOGY METHOD 07/29/2024 8:04 PM [facility] Basophils Relative 0.5 % LAB HEMETOLOGY METHOD 07/29/2024 8:04 PM [facility] Immature Granulocytes Relative 0.5 % LAB HEMETOLOGY METHOD 07/29/2024 8:04 PM [facility] Neutrophils Absolute 3.86 1.50 - 7.00 K/mcL LAB HEMETOLOGY METHOD 07/29/2024 8:04 PM [facility] Lymphocytes Absolute 1.34 1.00 - 5.00 K/mcL LAB HEMETOLOGY METHOD 07/29/2024 8:04 PM [facility] Monocytes Absolute 0.94 0.20 - 1.00 K/mcL LAB HEMETOLOGY METHOD 07/29/2024 8:04 PM [facility] Eosinophils Absolute 0.23 0.00 - 0.50 K/mcL LAB HEMETOLOGY METHOD 07/29/2024 8:04 PM EST [facility] Basophils Absolute 0.03 0.00 - 0.20 K/[facility] LAB HEMETOLOGY METHOD 07/29/2024 8:04 PM [facility] Immature Granulocytes Absolute 0.03 0.00 - 0.03 K/mcL LAB HEMETOLOGY METHOD 07/29/2024 8:04 PM EST [facility] Blood Venous blood specimen / Unknown Venipuncture / Unknown 07/29/2024 6:53 PM EST 07/29/2024 7:58 PM EST Vitaliy Cantu MD LAB BLOOD ORDERABLES [facility] [address] [place] [address], * (ABNORMAL) Basic metabolic panel (07/29/2024 6:53 PM EST) Sodium 135 133 - 145 mmol/L LAB CHEMISTRY METHOD 07/29/2024 8:34 PM [facility] Potassium 4.6 3.5 - 5.5 mmol/L LAB CHEMISTRY METHOD 07/29/2024 8:34 PM [facility] Chloride 97 96 - 110 mmol/L LAB CHEMISTRY METHOD 07/29/2024 8:34 PM [facility] CO2 36(H) 21 - 32 mmol/L LAB CHEMISTRY METHOD 07/29/2024 8:34 PM [facility] Anion Gap 2(L) 3 - 11 LAB CHEMISTRY METHOD 07/29/2024 8:34 PM [facility] Glucose 198(H) 70 - 100 mg/dL LAB CHEMISTRY METHOD 07/29/2024 8:34 PM [facility] BUN 17 5 - 25 mg/dL LAB CHEMISTRY METHOD 07/29/2024 8:34 PM [facility] Creatinine 0.72 0.70 - 1.30 mg/dL LAB CHEMISTRY METHOD 07/29/2024 8:34 PM EST [facility] eGFR 108 >=60 mL/min/1. 73m2 LAB CHEMISTRY METHOD 07/29/2024 8:34 PM EST [facility] Comment:Calculation based on the??Chronic Kidney Disease Epidemiology Collaboration (CKD-EPI) equation refit??without adjustment for race. BUN/Creatinine Ratio 23.6 LAB CHEMISTRY METHOD 07/29/2024 8:34 PM EST [facility] Calcium 8.9 8.5 - 10.5 mg/dL LAB CHEMISTRY METHOD 07/29/2024 8:34 PM EST [facility] Blood Venous blood specimen / Unknown Venipuncture / Unknown 07/29/2024 6:53 PM EST 07/29/2024 7:58 PM EST Vitaliy Cantu MD LAB BLOOD ORDERABLES [facility] [address] [place] [address], documented in this encounter Visit Diagnoses Diagnosis Anasarca- Primary Edema Cellulitis of scrotum Other inflammatory disorder of male genital organs Anasarca Edema documented in this encounter Admitting Diagnoses Diagnosis Anasarca Edema documented in this encounter Administered Medications Inactive Administered Medications - up to 3 most recent administrations Medication Order MAR Action Action Date Dose Rate Site acetaminophen (TYLENOL) tablet 650 mg 650 mg, oral, Every 8 hours PRN, mild pain, fever - temperature GREATER than 38 C (100.4 F), Starting on Tue07/30/24 at 0637 aspirin EC tablet 81 mg 81 mg, oral, Daily, First dose on Tue07/30/24 at 0900, Do not crush, chew, or split. Given 08/06/2024 8:10 AM EST 81 mg Given 08/05/2024 8:01 AM EST 81 mg Given 08/04/2024 8:02 AM EST 81 mg cefTRIAXone (ROCEPHIN) 1 g in sterile water 10 mL IV syringe 1 g, intravenous, at 200 mL/hr, Administer over 3 Minutes, Once, On Tue07/30/24 at 0208, For 1 dose, Do not administer simultaneously with any calcium containing solutions via a Y-site in any patient., Indication: Skin/Soft Tissue Given 07/30/2024 3:12 AM EST 1 g 20 0 mL/hr dextrose (D50W) 50% injection 12.5 g 12.5 g, intravenous, Every 15 min PRN, low blood sugar, moderate hypoglycemia *Patient is Unconscious, NPO, unable to swallow: BG 54 - 69 mg/dl*, Starting on Tue07/31/24 at 0011 dextrose (D50W) 50% injection 25 g 25 g, intravenous, Every 15 min PRN, low blood sugar, severe hypoglycemia *Patient is Unconscious, NPO, unable to swallow: BG LESS than 54 mg/dL*, Starting on Tue07/31/24 at 0011 dextrose 15 gram/60 mL oral solution 15 g 15 g, oral, Every 15 min PRN, low blood sugar, hypoglycemia *Patient conscious AND able to drink and swallow safely*, Starting on Tue07/31/24 at 0011 dextrose 15 gram/60 mL oral solution 30 g 30 g, oral, Every 15 min PRN, low blood sugar, hypoglycemia *Patient conscious AND able to drink and swallow safely*, Starting on Tue07/31/24 at 0011 diphenhydrAMINE (BENADRYL) capsule 25 mg 25 mg, oral, Every 6 hours PRN, itching, allergies, Starting on Tue08/05/24 at 1444 Given 08/05/2024 2:55 PM EST 25 mg fentaNYL (PF) (SUBLIMAZE) injection intravenous, As needed, Starting on Tue08/02/24 at 0945, Intraprocedure Given 08/02/2024 10:15 AM EST 50 mcg Given 08/02/2024 9:45 AM EST 50 mcg fentaNYL (PF) (SUBLIMAZE) injection intravenous, As needed, Starting on Tue08/03/24 at 1738, Intraprocedure Given 08/03/2024 5:38 PM EST 50 mcg Rig ht Forearm fentaNYL (PF) (SUBLIMAZE) injection intravenous, As needed, Starting on Tue08/03/24 at 1802, Intraprocedure Given 08/03/2024 6:02 PM EST 25 mcg Rig ht Forearm furosemide (LASIX) injection 20 mg 20 mg, intravenous, Once, On Tue07/30/24 at 0647, For 1 dose Given 07/30/2024 9:34 AM EST 20 mg furosemide (LASIX) injection 20 mg 20 mg, intravenous, BID Diuretic, First dose on Tue07/31/24 at 0900 Given 07/31/2024 8:39 AM EST 20 mg furosemide (LASIX) injection 40 mg 40 mg, intravenous, BID Diuretic, First dose (after last modification) on Tue07/31/24 at 1700 Given 08/05/2024 8:03 AM EST 40 mg Given 08/04/2024 4:50 PM EST 40 mg Given 08/04/2024 8:03 AM EST 40 mg furosemide (LASIX) tablet 40 mg 40 mg, oral, BID Diuretic, First dose on Tue08/05/24 at 1015 Given 08/05/2024 10:08 AM EST 40 mg gabapentin (NEURONTIN) capsule 400 mg 400 mg, oral, 3 times daily, First dose on Tue07/30/24 at 0900 Given 08/06/2024 2:02 PM EST 400 mg Given 08/06/2024 8:09 AM EST 400 mg Given 08/05/2024 8:52 PM EST 400 mg Glucagon HCl (rDNA) injection 1 mg 1 mg, intramuscular, Once as needed, low blood sugar, severe hypoglycemia, Starting on Tue07/31/24 at 0011, For 1 dose HYDROmorphone (PF) injection 0.5 mg 0.5 mg, intravenous, Every 3 hours PRN, severe pain or when therapies for moderate pain were not effective, Starting on Tue07/30/24 at 0634, On hold since Tue07/31/2024 at 0852 until manually unheld Given 07/30/2024 9:35 AM EST 0.5 mg insulin glargine (LANTUS) injection 10 Units 10 Units, subcutaneous, Every morning, First dose on Tue07/31/24 at 0700, Notify provider: -If patient is currently or will become NPO -If TPN was or will be interrupted or discontinued -For approval to hold long acting insulin Given 08/06/2024 7:52 AM EST 10 Units Right Upper Arm (Back) Given 08/05/2024 7:56 AM EST 10 Units Le ft Upper Arm (Back) Given 08/04/2024 8:13 AM EST 10 Units Le ft Lower Abdomen insulin lispro injection 2 Units 2 Units, subcutaneous, Once, On Tue08/03/24 at 2115, For 1 dose Given 08/03/2024 9:51 PM EST 2 Units Left Upper Arm (Back ) insulin lispro injection 2-12 Units 2-12 Units, subcutaneous, 3 times daily before meals, First dose on Tue07/31/24 at 0730, Indication: Total Daily Dose (TDD) 40 - 80 units. Correction Scale: Moderate Dose Administer with meal and/or mealtime dose of insulin to correct high blood glucose If mealtime insulin dose not given (e.g. patient NPO or not eating), still administer correction factor for high blood glucose Given 08/04/2024 11:48 AM EST 2 Units Left Lower Abdomen Given 08/04/2024 8:14 AM EST 2 Units Le ft Lower Abdomen Given 08/02/2024 5:25 PM EST 2 Units Ri ght Upper Abdomen insulin lispro injection 2-12 Units 2-12 Units, subcutaneous, 4 times daily before meals and nightly, First dose (after last modification) on 08/04/24 at 2200, Indication: Total Daily Dose (TDD) 40 - 80 units. Correction Scale: Moderate Dose Administer with meal and/or mealtime dose of insulin to correct high blood glucose If mealtime insulin dose not given (e.g. patient NPO or not eating), still administer correction factor for high blood glucose Given 08/06/2024 11:59 AM EST 2 Units Right Upper Arm (Diana k) Given 08/05/2024 8:51 PM EST 4 Units Ri ght Upper Arm (Back) Given 08/05/2024 11:40 AM EST 6 Units L eft Upper Arm (Back) iopamidoL (ISOVUE-300) 300 mg iodine /mL (61 %) solution As needed, Starting on Tue08/03/24 at 1820, Intraprocedure Given 08/03/2024 6:20 PM EST 35 mL iopamidoL (ISOVUE-370) 370 mg iodine /mL (76 %) injection 90 mL 90 mL, intravenous, Once in imaging, Starting on Tue07/30/24 at 0341, For 1 dose Given 07/30/2024 3:46 AM EST 95 mL lactulose (CHRONULAC) solution 20 g 20 g, oral, Once, On Tue08/06/24 at 1415, For 1 dose Given 08/06/2024 2:02 PM EST 20 g levothyroxine (SYNTHROID, LEVOTHROID) tablet 100 mcg 100 mcg, oral, Every morning before breakfast, First dose on Tue07/30/24 at 0859, ORAL ROUTE: take on an empty stomach and separate from other medications. ENTERAL TUBE ROUTE: If newly initiated enteral nutrition duration is over 5 days, hold enteral nutrition 1 hour before and after drug administration, per ASPEN guidelines. Given 08/06/2024 6:07 AM ES T 100 mcg Given 08/05/2024 5:45 AM EST 100 mcg Given 08/04/2024 5:15 AM EST 100 mcg lidocaine (XYLOCAINE) 1 % injection As needed, Starting on Tue08/03/24 at 1819, Intraprocedure Given 08/03/2024 6:19 PM EST 8 mL magnesium citrate solution 296 mL 296 mL, oral, Once, On Tue08/06/24 at 1015, For 1 dose Given 08/06/2024 10:30 AM EST 296 mL magnesium hydroxide (MILK OF MAGNESIA) 400 mg/5 mL suspension 30 mL 30 mL, oral, Daily PRN, constipation, Starting on Tue07/30/24 at 0634, 1st line for treatment of constipation - give scheduled if no bowel movement in past 24 hours Given 08/06/2024 8:12 AM EST 30 mL magnesium oxide (MAG-OX) tablet 400 mg 400 mg, oral, 2 times daily, First dose on Tue08/03/24 at 2100 Given 08/06/2024 8:10 AM EST 400 mg Given 08/05/2024 9:40 PM EST 400 mg Given 08/05/2024 8:01 AM EST 400 mg magnesium sulfate 2 gram/50 mL (4 %) IVPB 2 g 2 g, intravenous, at 25 mL/hr, Administer over 2 Hours, Once, On Tue08/02/24 at 1500, For 1 dose New Bag 08/02/2024 2:58 PM EST 2 g 25 m L/hr melatonin tablet 6 mg 6 mg, oral, Nightly, First dose on Tue07/30/24 at 2100 Given 08/05/2024 10:23 PM EST 6 mg Given 08/04/2024 11:00 PM EST 6 mg Given 08/03/2024 9:51 PM EST 6 mg midazolam (VERSED) injection intravenous, As needed, Starting on Tue08/02/24 at 0946, Intraprocedure Given 08/02/2024 9:46 AM EST 2 mg midazolam (VERSED) injection intravenous, As needed, Starting on Tue08/03/24 at 1738, Intraprocedure Given 08/03/2024 5:38 PM EST 1 mg Right Forearm midazolam (VERSED) injection intravenous, As needed, Starting on Tue08/03/24 at 1802, Intraprocedure Given 08/03/2024 6:02 PM EST 0.5 mg Right Forearm morphine injection 4 mg 4 mg, intravenous, Once, On Tue07/30/24 at 0223, For 1 dose Given 07/30/2024 3:06 AM EST 4 mg naloxone (NARCAN) injection 0.04 mg 0.04 mg, intravenous, As needed, opioid reversal, IV Push every 1 min for 10 doses, Starting on Tue07/30/24 at 0634, For 10 doses, To Dilute: -Use 0.4 mg/mL vial , withdraw 1 mL and add 9 mL NS -FOLLOWING DILUTION, dose of 0.04 mg = 1 mL For PARTIAL Opioid Reversal: -For respiratory rate LESS than 10 or [place] Opioid-induced Sedation Scale (POSS) equal to 4 -May be repeated at 1 minute intervals to restore adequate respirations -Administer up to 10 doses (0.4 mg) nicotine (NICODERM CQ) 21 mg/24 hr patch 1 patch 1 patch, transdermal, Administer over 24 Hours, Daily, First dose on Tue07/30/24 at 1300 Patch Applied 08/06/2024 8:12 AM EST 1 patch Left Arm Patch Applied 08/05/2024 9:00 AM EST 1 patch Right Arm Patch Applied 08/04/2024 8:03 AM EST 1 patch Left Arm ondansetron (PF) (ZOFRAN) injection 4 mg 4 mg, intravenous, Every 6 hours PRN, vomiting, nausea, Starting on Tue07/30/24 at 0634, -ONLY give IV if patient is unable to take orally. -If inadequate response within 30 minutes, proceed to next-line agent or contact provider if no further options ordered. oxyCODONE (ROXICODONE) immediate release tablet 5 mg 5 mg, oral, Every 4 hours PRN, moderate pain or when therapies for mild pain were not effective, Starting on 07/30/24 at 0634 Given 08/06/2024 12:03 PM EST 5 mg Given 08/06/2024 6:06 AM EST 5 mg Given 08/05/2024 8:52 PM EST 5 mg perflutren lipid microsphere (DEFINITY) 1.3 mL in sodium chloride 0.9% 8.7 mL injection 10 mL, intravenous, Administer over 10 Minutes, Once in imaging, Starting on 07/30/24 at 0736, For 1 dose Given 07/30/2024 11:16 AM EST 3 mL polyethylene glycol (MIRALAX) packet 17 g 17 g, oral, Daily PRN, constipation, Starting on 08/04/24 at 0757 Given 08/06/2024 8:11 AM EST 17 g Given 08/05/2024 8:06 AM EST 17 g Given 08/04/2024 8:13 AM EST 17 g senna (SENOKOT) tablet 8.6 mg 8.6 mg (1 tablet), oral, 2 times daily, First dose on 08/04/24 at 0900 Given 08/06/2024 8:12 AM EST 8.6 mg Given 08/05/2024 8:53 PM EST 8.6 mg Given 08/05/2024 8:01 AM EST 8.6 mg sodium chloride 0.9 % bolus 1,000 mL 1,000 mL, intravenous, at 1,000 mL/hr, Administer over 1 Hours, Once, On 07/30/24 at 0208, For 1 dose New Bag 07/30/2024 3:13 AM EST 1,000 mL 1000 mL/hr sodium chloride 0.9 % flush 10 mL 10 mL, intravenous, Once, On Tue07/30/24 at 0342, For 1 dose Given 07/30/2024 3:46 AM EST 10 mL sodium chloride 0.9 % flush 10 mL 10 mL, intravenous, 2 times daily, First dose on 07/30/24 at 0900 Given 08/06/2024 8:13 AM EST 10 mL Given 08/05/2024 8:53 PM EST 10 mL Given 08/05/2024 8:02 AM EST 10 mL sodium chloride 0.9 % flush 10 mL 10 mL, intravenous, As needed, line care, Starting on Tue07/30/24 at 0634 Given 08/01/2024 8:08 PM EST 10 mL spironolactone (ALDACTONE) tablet 50 mg 50 mg, oral, 2 times daily with meals, First dose on Tue07/30/24 at 0800, HAZARDOUS Drug Precautions - Low Risk (Category A/NIOSH Group 3) Reproductive Risk Only: - Single pair of ASTM standard D6978 certified chemotherapy gloves - Eye protection (goggles or face shield) required only with a potential for facial contact (i.e. concern for spitting or vomiting of the dose during or after administration) - Staff at reproductive risk (actively trying to conceive, or may be become , and ): chemo certified gown and an N95 respirator required when crushing meds (crushing of tabs allowed only in closed pouches) or opening of capsules only for allowable dosage forms Given 08/06/2024 8:10 AM EST 50 mg Given 08/05/2024 4:19 PM EST 50 mg Given 08/05/2024 7:52 AM EST 50 mg vancomycin (VANCOCIN) 2,750 mg in sodium chloride 0.9 % 500 mL IVPB 2,750 mg (rounded from 2,760 mg = 20 mg/kg ? 138 kg), intravenous, at 166.7 mL/hr, Administer over 180 Minutes, Once, On Tue07/30/24 at 0300, For 1 dose, Indication: Skin/Soft Tissue New Bag 07/30/2024 3:12 AM EST 2,750 mg 166.7 mL/hr documented in this encounter Discontinued Medications Medication Sig Discontinue Reason Start Date End Da te betamethasone dipropionate (DIPROSONE) 0.05 % cream Apply topically. 03/21/2024 07/30/2024 gabapentin (NEURONTIN) 300 mg capsule Take 1 capsule (300 mg total) by mouth 3 (three) times a day. 10/17/2023 07/30/2024 lidocaine-prilocaine (EMLA) 2.5-2.5 % cream Apply topically. 12/07/2023 12/30/20 24 melatonin 5 mg tablet Take 1 tablet (5 mg total) by mouth. at bedtime. 11/24/2023 07/30/2024 insulin glargine (LANTUS) 100 unit/mL injection Inject 10 Units under the skin at bedtime. 07/30/2024 hydroCHLOROthiazide (HYDRODIURIL) 25 mg tablet Take 0.5 tablets (12.5 mg total) by mouth 1 (one) time each day. 06/28/2024 07/30/2024 hydroCHLOROthiazide 12.5 mg tablet Take 1 tablet (12.5 mg total) by mouth daily. Stop Taking at Discharge 07/03/2024 08/06/2024 lisinopril-hydroCHLOROt hiazide (PRINZIDE,ZESTORETIC) 10-12.5 mg per tablet Take 1 tablet by mouth 1 (one) time each day. Stop Taking at Discharge 08/06/2024 documented as of this encounter Historical Medications * This list may reflect changes made after this encounter. Medication Sig Dispensed Refills Start Date End Date nicotine (NICODERM CQ) 7 mg/[address] 1 patch on the skin 1 (one) time each day at the same time. aspirin 81 mg EC tablet Take 1 tablet (81 mg total) by mouth 1 (one) time each day. insulin detemir (Levemir FlexPen) 100 unit/mL (3 mL) injection pen Infuse 4-6 Units into a venous catheter 1 (one) time each day. 07/19/2017 triamcinolone (KENALOG) 0.1 % ointment Apply 1 Application topically 2 times daily. 07/03/2024 melatonin 3 mg tablet Take 2 tablets (6 mg total) by mouth at bedtime. gabapentin (NEURONTIN) 400 mg capsule Take 1 capsule (400 mg total) by mouth 3 (three) times a day. 07/04/2024 lisinopril-hydroCHLORO thiazide (PRINZIDE,ZESTORETIC) 10-12.5 mg per tablet Take 1 tablet by mouth 1 (one) time each day. hydroCHLOROthiazide 12.5 mg tablet Take 1 tablet (12.5 mg total) by mouth daily. 07/03/2024 added in this encounter Active and Recently Administered Medications Times are shown in EST. Scheduled Medication Order 08/04/2024 08/05/2024 08/06/2024 alteplase (CATHFLO ACTIVASE) injection 2 mg 2 mg, intra-catheter, Once, On Tue08/01/24 at 1630, For 1 dose, Lumen 1 -Catheter Clearance - Implantable Ports -Allow dwell time of 30 - 60 minutes -Attempt to aspirate blood from catheter -If unable to aspirate, allow to dwell for 60 - 90 additional minutes (120 minutes total) -If unable to aspirate after 120 minutes, contact physician Dilute each 2 mg vial with 2.2 mL sterile water to give 1 mg/mL final concentration. Swirl gently to mix; do not shake., Alteplase Indication: Catheter Clearance aspirin EC tablet 81 mg 81 mg, oral, Daily, First dose on Tue07/30/24 at 0900, Do not crush, chew, or split. 0802 (Given - Provider: Jessa Gallo RN) 0801 (Given - Provider: Jessa Gallo RN) 0810 (Given - Provider: Seble Lora RN) furosemide (LASIX) injection 40 mg (CANCELED) 40 mg, intravenous, BID Diuretic, First dose (after last modification) on Tue07/31/24 at 1700 0803 (Given - Provider: Jessa Gallo RN)1650 (Given - Provider: Meron Ospina RN) 0803 (Given - Provider: Jessa Gallo RN) furosemide (LASIX) tablet 40 mg (CANCELED) 40 mg, oral, BID Diuretic, First dose on Tue08/05/24 at 1015 1008 (Given - Provider: Jessa Gallo RN) gabapentin (NEURONTIN) capsule 400 mg 400 mg, oral, 3 times daily, First dose on Tue07/30/24 at 0900 0803 (Given - Provider: Jessa Gallo RN)1406 (Given - Provider: Jessa Gallo RN)2122 (Given - Provider: Rosaline Shea, NICK) 0801 (Given - Provider: Jessa Gallo RN)1513 (Given - Provider: Jessa Gallo RN)205 (Given - Provider: Rosaline Shea RN) 0809 (Given - Provider: Seble Lora RN)1402 (Given - Provider: Seble Lora RN) insulin glargine (LANTUS) injection 10 Units 10 Units, subcutaneous, Every morning, First dose on Tue07/31/24 at 0700, Notify provider: -If patient is currently or will become NPO -If TPN was or will be interrupted or discontinued -For approval to hold long acting insulin 0813 (Given - Provider: Jessa Gallo RN) 0756 (Given - Provider: Jessa Gallo RN) 0752 (Given - Provider: Seble Lora RN) insulin lispro injection 2-12 Units (CANCELED) 2-12 Units, subcutaneous, 3 times daily before meals, First dose on Tue07/31/24 at 0730, Indication: Total Daily Dose (TDD) 40 - 80 units. Correction Scale: Moderate Dose Administer with meal and/or mealtime dose of insulin to correct high blood glucose If mealtime insulin dose not given (e.g. patient NPO or not eating), still administer correction factor for high blood glucose 0814 (Given - Provider: Jessa Gallo RN)1148 (Given - Provider: Jessa Gallo RN)1651 (Not Given - Provider: Meron Ospina RN - Reason: Order parameters not met) insulin lispro injection 2-12 Units 2-12 Units, subcutaneous, 4 times daily before meals and nightly, First dose (after last modification) on Tue08/04/24 at 2200, Indication: Total Daily Dose (TDD) 40 - 80 units. Correction Scale: Moderate Dose Administer with meal and/or mealtime dose of insulin to correct high blood glucose If mealtime insulin dose not given (e.g. patient NPO or not eating), still administer correction factor for high blood glucose 2300 (Given - Provider: Rosaline Shea RN) 0748 (Not Given - Provider: Jessa Gallo RN - Reason: Order parameters not met)1140 (Given - Provider: Jessa Gallo RN)1616 (Not Given - Provider: Jessa Gallo RN - Reason: Order parameters not met)2051 (Given - Provider: Rosaline Shea RN) 0751 (Not Given - Provider: Seble Lora RN - Reason: Order parameters not met - Comment: POC [phone] (Given - Provider: Seble Lora RN)1630 (Canceled Entry - Provider: Automatic Discharge Provider - Comment: Automatically canceled at discontinue of medication order) lactulose (CHRONULAC) solution 20 g (COMPLETED) 20 g, oral, Once, On Tue08/06/24 at 1415, For 1 dose 1402 (Given - Provid er: Seble Lora RN) levothyroxine (SYNTHROID, LEVOTHROID) tablet 100 mcg 100 mcg, oral, Every morning before breakfast, First dose on Tue07/30/24 at 0859, ORAL ROUTE: take on an empty stomach and separate from other medications. ENTERAL TUBE ROUTE: If newly initiated enteral nutrition duration is over 5 days, hold enteral nutrition 1 hour before and after drug administration, per ASPEN guidelines. 0515 (Given - Provider: Melissa Aparicio RN) 0545 (Given - Provider: Rosaline Shea RN) 0607 (Given - Provider: Rosaline Shea RN) magnesium citrate solution 296 mL (COMPLETED) 296 mL, oral, Once, On Tue08/06/24 at 1015, For 1 dose 1030 (Given - Provid er: Seble Lora RN) magnesium oxide (MAG-OX) tablet 400 mg 400 mg, oral, 2 times daily, First dose on Tue08/03/24 at 2100 0803 (Given - Provider: Jessa Gallo RN)2122 (Given - Provider: Rosaline Shea RN) 0801 (Given - Provider: Jessa Gallo RN)2140 (Given - Provider: Rosaline Shea RN) 0810 (Given - Provider: Seble Lora RN) melatonin tablet 6 mg 6 mg, oral, Nightly, First dose on Tue07/30/24 at 2100 2300 (Given - Provider: Rosaline Shea RN) 2223 (Given - Provider: Rosaline Shea RN) mineral oil enema 133 mL 133 mL, rectal, Once, On Tue08/06/24 at 1430, For 1 dose 1508 (Not Given - Provider: Seble Lora RN - Reason: Other - Comment: patient had bm) nicotine (NICODERM CQ) 21 mg/24 hr patch 1 patch 1 patch, transdermal, Administer over 24 Hours, Daily, First dose on Tue07/30/24 at 1300 0800 (Patch Removed - Provider: Jessa Gallo RN)0803 (Patch Applied - Provider: Jessa Gallo RN) 0753 (Patch Removed - Provider: Jessa Gallo RN)0900 (Patch Applied - Provider: Jessa Gallo RN) 08 (Patch Applied - Provider: Seble Lora RN)1554 (Due: Patch Removed - Provider: Automatic Discharge Provider - Comment: Time automatically adjusted from order being discontinued) senna (SENOKOT) tablet 8.6 mg 8.6 mg (1 tablet), oral, 2 times daily, First dose on Tue08/04/24 at 0900 0813 (Given - Provider: Jessa Gallo RN)2122 (Given - Provider: Rosaline Shea RN) 08 (Given - Provider: Jessa Gallo RN)2052 (Given - Provider: Rosaline Shea RN) 08 (Given - Provider: Seble Lora RN) sodium chloride 0.9 % flush 10 mL(Linked Group 1) 10 mL, intravenous, 2 times daily, First dose on Tue07/30/24 at 0900 0813 (Given - Provider: Jessa Gallo RN)2122 (Given - Provider: Rosaline Shea RN) 08 (Given - Provider: Jessa Gallo RN)2052 (Given - Provider: Rosaline Shea RN) 08 (Given - Provider: Seble Lora RN) spironolactone (ALDACTONE) tablet 50 mg 50 mg, oral, 2 times daily with meals, First dose on Tue07/30/24 at 0800, HAZARDOUS Drug Precautions - Low Risk (Category A/NIOSH Group 3) Reproductive Risk Only: - Single pair of ASTM standard D6978 certified chemotherapy gloves - Eye protection (goggles or face shield) required only with a potential for facial contact (i.e. concern for spitting or vomiting of the dose during or after administration) - Staff at reproductive risk (actively trying to conceive, or may be become , and ): chemo certified gown and an N95 respirator required when crushing meds (crushing of tabs allowed only in closed pouches) or opening of capsules only for allowable dosage forms 0802 (Given - Provider: Jessa Gallo, NICK)1650 (Given - Provider: Meron Ospina, RN) 0752 (Given - Provider: Jessa Gallo RN)1619 (Given - Provider: Jessa Gallo RN) 0810 (Given - Provider: Seble Lora RN)1700 (Canceled Entry - Provider: Automatic Discharge Provider - Comment: Automatically canceled at discontinue of medication order) PRN Medication Order 08/04/2024 08/05/2024 08/06/2024 acetaminophen (TYLENOL) tablet 650 mg 650 mg, oral, Every 8 hours PRN, mild pain, fever - temperature GREATER than 38 C (100.4 F), Starting on Tue07/30/24 at 0637 albuterol 2.5 mg /3 mL (0.083 %) nebulizer solution 2.5 mg 2.5 mg, nebulization, Every 4 hours PRN, wheezing, Starting on Tue07/30/24 at 0757 dextrose (D50W) 50% injection 12.5 g 12.5 g, intravenous, Every 15 min PRN, low blood sugar, moderate hypoglycemia *Patient is Unconscious, NPO, unable to swallow: BG 54 - 69 mg/dl*, Starting on Tue07/31/24 at 0011 dextrose (D50W) 50% injection 25 g 25 g, intravenous, Every 15 min PRN, low blood sugar, severe hypoglycemia *Patient is Unconscious, NPO, unable to swallow: BG LESS than 54 mg/dL*, Starting on Tue07/31/24 at 0011 dextrose 15 gram/60 mL oral solution 15 g 15 g, oral, Every 15 min PRN, low blood sugar, hypoglycemia *Patient conscious AND able to drink and swallow safely*, Starting on Tue07/31/24 at 0011 dextrose 15 gram/60 mL oral solution 30 g 30 g, oral, Every 15 min PRN, low blood sugar, hypoglycemia *Patient conscious AND able to drink and swallow safely*, Starting on Tue07/31/24 at 0011 diphenhydrAMINE (BENADRYL) capsule 25 mg 25 mg, oral, Every 6 hours PRN, itching, allergies, Starting on Tue08/05/24 at 1444 1455 (Given - Provider: Jessa Gallo, NICK) Glucagon HCl (rDNA) injection 1 mg 1 mg, intramuscular, Once as needed, low blood sugar, severe hypoglycemia, Starting on Tue07/31/24 at 0011, For 1 dose magnesium hydroxide (MILK OF MAGNESIA) 400 mg/5 mL suspension 30 mL 30 mL, oral, Daily PRN, constipation, Starting on Tue07/30/24 at 0634, 1st line for treatment of constipation - give scheduled if no bowel movement in past 24 hours 0812 (Given - Provider: Seble Lora RN) naloxone (NARCAN) injection 0.04 mg 0.04 mg, intravenous, As needed, opioid reversal, IV Push every 1 min for 10 doses, Starting on Tue07/30/24 at 0634, For 10 doses, To Dilute: -Use 0.4 mg/mL vial , withdraw 1 mL and add 9 mL NS -FOLLOWING DILUTION, dose of 0.04 mg = 1 mL For PARTIAL Opioid Reversal: -For respiratory rate LESS than 10 or [place] Opioid-induced Sedation Scale (POSS) equal to 4 -May be repeated at 1 minute intervals to restore adequate respirations -Administer up to 10 doses (0.4 mg) ondansetron (PF) (ZOFRAN) injection 4 mg 4 mg, intravenous, Every 6 hours PRN, vomiting, nausea, Starting on Tue07/30/24 at 0634, -ONLY give IV if patient is unable to take orally. -If inadequate response within 30 minutes, proceed to next-line agent or contact provider if no further options ordered. oxyCODONE (ROXICODONE) immediate release tablet 5 mg 5 mg, oral, Every 4 hours PRN, moderate pain or when therapies for mild pain were not effective, Starting on Tue07/30/24 at 0634 0515 (Given - Provider: Melissa Aparicio RN)1014 (Given - Provider: Jessa Gallo, NICK)1646 (Given - Provider: Meron Ospina RN)2128 (Given - Provider: Rosaline A Stepanik, RN) 0122 (Given - Provider: Rosaline Shea RN)0545 (Given - Provider: Rosaline Shea, RN)1213 (Given - Provider: Jessa Gallo RN)2051 (Given - Provider: Rosaline Shea RN) 06 (Given - Provider: Rosaline Shea RN)1203 (Given - Provider: Seble Lora, RN) polyethylene glycol (MIRALAX) packet 17 g 17 g, oral, Daily PRN, constipation, Starting on 08/04/24 at 0757 0813 (Given - Provider: Jessa Gallo, NICK) 0806 (Given - Provider: Jessa Gallo, RN) 0811 (Given - Provider: Seble Lora, RN) sodium chloride 0.9 % flush 10 mL(Linked Group 1) 10 mL, intravenous, As needed, line care, Starting on 07/30/24 at 0634 Linked Groups Order Group 1: Insert peripheral IV (CANCELED) STAT, Once, On Tue07/30/24 at 0635, For 1 occurrence And Maintain IV access (CANCELED) Until discontinued, Starting on Tue07/30/24 at 0635, Until Specified And Saline lock IV (CANCELED) Routine, Once, On Tue07/30/24 at 0635, For 1 occurrence And sodium chloride 0.9 % flush 10 mLJump to med 10 mL, intravenous, 2 times daily, First dose on Tue07/30/24 at 0900 And sodium chloride 0.9 % flush 10 mLJump to med 10 mL, intravenous, As needed, line care, Starting on Tue07/30/24 at 0634 documented in this encounter Orders Medications Ordered That Luis Alberto ht Not Have Been Administered Count Last Ordered Date First Ordered Date mineral oil enema 133 mL 1 08/06/2024 alteplase (CATHFLO ACTIVASE) injection 2 mg 1 08/01/2024 dextrose (D50W) 50% injection 12.5 g 1 07/03 dextrose (D50W) 50% injection 25 g 1 2023 dextrose 15 gram/60 mL oral solution 15 g 1 07/31/2024 dextrose 15 gram/60 mL oral solution 30 g 1 07/31/2024 Glucagon HCl (rDNA) injection 1 mg 1 2023 acetaminophen (TYLENOL) tablet 650 mg 1 albuterol 2.5 mg /3 mL (0.08 3 %) nebulizer solution 2.5 mg 1 07/30/2024 naloxone (NARCAN) injection 0.04 mg 1 07/30 ondansetron (PF) (ZOFRAN) injection 4 mg 1 07/30/2024 Lab Orders Without Results Count Last Ordered D ate First Ordered Date POCT GLUCOSE, BLOOD 26 08/06/2024 07/31/20 24 EKG Orders Without Results Count Last Ordered D ate First Ordered Date ECG 12-LEAD 1 07/30/2024 Diet Count Last Ordered Date First Orde red Date ADULT DISCHARGE DIET 1 08/06/2024 Nursing Count Last Ordered Date First Orde red Date DISCHARGE INSTRUCTIONS 1 08/06/2024 Consult Count Last Ordered Date First Orde red Date IP CONSULT TO INTERVENTIONAL RADIOLOGY 1 IV Count Last Ordered Date First Orde red Date INSERT PERIPHERAL IV 1 07/30/2024 Admission Count Last Ordered Date First Orde red Date ADMIT TO INPATIENT 1 07/30/2024 Transfer Count Last Ordered Date First Orde red Date TRANSFER PATIENT TO NEW UNIT 1 07/31/2024 ED TO FLOOR BED REQUEST 1 07/30/2024 Discharge Count Last Ordered Date First Orde red Date DISCHARGE PATIENT 1 08/06/2024 documented in this encounter Care Teams [employer] Relationship Specialty Start Date End Date Oralia Palomino MD [address] [place] [address] PCP - General 11/23/23 documented as of this encounter
--- OUTSIDE RECORDS SUMMARY | 2024-08-27 14:50 | XMS_ITS | Clinical Summary ---
Author Organization [facility] Address [address] [place] [address] 7[address] [place] [address] Care Team Providers Care Tire Buster Name Role Phone Oralia Palomino MD Primary Care Provider [phone] Allergies Active Allergy Reactions Criticality Noted Date Comments Lisinopril Angioedema 07/03/2024 Medications * This document contains information received from the source organization and may not represent a complete record from that organization. ammonium lactate (Amlactin) 12 % cream Apply topically every 12 (twelve) hours. 10/05/19 19 Active tiotropium (Spiriva HandiHaler) 18 MCG inhalation capsuleIndications :Simple chronic bronchitis (CMS/HCC) Place 1 capsule (18 mcg) into inhaler and inhale in the morning. 30 capsule 11 02/04/20 23 Active Additional Information Patient not taking.Reported on 11/28/2023 Blood Pressure kitIndications:Ess ential hypertension To check the BP every other day and as needed 1 kit 05/11/20 23 Active pancrelipase, Kkc-Mttt-Texd, (Creon) 42714-24881 units capsuleIndications :Other acute pancreatitis, unspecified complication status Take 6 capsules (72,000 units of lipase) by mouth with breakfast, with lunch, and with evening meal. 90 capsule 3 08/11/19 24 Active Insulin Glargine Solostar 100 UNIT/ML solution pen-injectorIndica tions:Type 2 diabetes mellitus with hyperglycemia, without long-term current use of insulin (CMS/HCC) Inject 10 Units under the skin at bedtime. 4 mL 11 08/11/19 24 Active insulin lispro (HumaLOG KWIKPEN) 100 UNIT/ML injection Inject three times daily 15 minutes before meals per sliding scale BS 70-130= 0 units 131/180= 2 units 181-240= 4 units 241-300= 6 units 301-350= 8 units 351-400=10 units Over 400= 12 units and call 45 mL 3 08/11/19 Active FREESTYLE LITE test strip USE 1 BY TO SKIN ROUTE 4 TIMES EVERY DAY 100 strip 11 12/27/19 Active FreeStyle lancets APPLY 1 LANCET BY TO SKIN ROUTE 4 TIMES EVERY DAY 120 each 12/27/19 Active Blood Glucose Monitoring Suppl (FreeStyle Lite) w/Device kit TEST 1 TIME BY SUBCUTANEOUS ROUTE ONCE 1 kit 12/27/19 Active varenicline (Chantix) 0.5 MG tabletIndications: Smoking Take with full glass of water. Days 1 to 3: 0.5 mg once daily. Days 4 to 7: 0.5 mg twice daily. 20 tablet 01/23/20 24 Active nicotine (Nicoderm, Step 2) 14 MG/24HR patchIndications:S moking PLACE 1 PATCH ON THE SKIN 1 TIME EACH DAY AT THE SAME TIME. 30 patch 02/14/20 24 Active nystatin (Mycostatin) creamIndications:F oreskin fissure,Candidiasi s of genitalia APPLY TO AFFECTED AREA TWICE A DAY 15 g 02/14/20 24 Active gabapentin (Neurontin) 400 MG capsuleIndications :Diabetic polyneuropathy associated with type 2 diabetes mellitus (CMS/HCC),Pruritus scroti Take 1 capsule (400 mg) by mouth 3 times daily. 90 capsule 04/25/20 24 025 Active baclofen (Lioresal) 10 MG tabletIndications: Muscle cramps Take 1 tablet (10 mg) by mouth 3 times daily. 90 tablet 04/25/20 24 Active Ventolin HFA 108 (90 Base) MCG/ACT inhalerIndications :SOB (shortness of breath) INHALE 2 PUFFS EVERY 6 HOURS IF NEEDED FOR WHEEZING. 18 g 3 05/10/20 24 Active triamcinolone (Kenalog) 0.1 % ointmentIndication s:Psoriasiform dermatitis Apply topically 2 times daily. 30 g 07/03/20 24 Active hydroCHLOROthiazid e 12.5 MG tabletIndications: Essential hypertension Take 1 tablet (12.5 mg) by mouth Once per day. 30 tablet 11 07/03/20 24 025 Active melatonin 3 MG tabletIndications: Primary insomnia Take 2 tablets (6 mg) by mouth if needed at bedtime for sleep. 30 tablet 11 07/03/20 24 Active nicotine (Nicoderm CQ) 7 MG/24HR patchIndications:S moking Place 1 patch on the skin 1 (one) time each day at the same time. 30 patch 07/03/20 24 Active gabapentin (Neurontin) 600 MG tabletIndications: Diabetic polyneuropathy associated with type 2 diabetes mellitus (CMS/HCC),Pruritus scroti Take 1 tablet (600 mg) by mouth 3 times daily. 90 tablet 11 08/15/19 25 026 Active triamcinolone (Kenalog) 0.1 % ointmentIndication s:Psoriasiform dermatitis Apply topically 2 times daily. 80 g 08/15/19 25 Active Chlorhexidine Gluconate (Hibiclens) 4 % solutionIndication s:Cellulitis of perineum To apply to the affected area twice a day. Rinse thoroughly after 5 minutes. 236 mL 3 08/15/19 25 Active traMADol (Ultram) 50 MG tabletIndications: Type 2 diabetes mellitus with diabetic neuropathy, with long-term current use of insulin (CMS/HCC) Take 1 tablet (50 mg) by mouth every 6 (six) hours if needed for severe pain for up to 5 days. 15 tablet 08/15/19 25 025 amoxicillin-clavul anate (Augmentin) 875-125 MG tabletIndications: Cellulitis of perineum Take 1 tablet by mouth 2 times daily for 10 days. 20 tablet 08/15/19 25 025 sulfamethoxazole-t rimethoprim (Bactrim DS) 800-160 MG tabletIndications: Cellulitis of perineum Take 1 tablet by mouth 2 times daily for 7 days. 14 tablet 08/15/19 25 025 Active Problems Problem Noted Date Diagnosed Date Hepatocellular carcinoma 07/03/2024 Diabetic neuropathy 07/28/2022 Chronic hepatitis C without hepatic coma 019 Essential hypertension 10/04/2018 Morbid obesity 10/04/2018 Type 2 diabetes mellitus wit h diabetic neuropathy, with long-term current use of insulin 10/04/2018 Encounters * This document contains information received from the source organization and may not represent a complete record from that organization. Date Type Department Care Team Description 08/23/2024 Orders Only [facility] [address] [place] [address] Oralia Palomino MD Essential hypertension (Primary Dx); Hyponatremia 08/16/2024 Telephone [facility] [address] [place] [address] Oralia Palomino MD 08/15/2024 9:45 AM EST Office Visit [facility] [address] [place] [address] Oralia Palomino MD Type 2 diabetes mellitus with diabetic neuropathy, with long-term current use of insulin ([facility]) (Primary Dx); Diabetic polyneuropathy associated with type 2 diabetes mellitus ([facility]/HCC); Pruritus scroti; Psoriasiform dermatitis; Cellulitis of perineum 08/15/2024 Travel 08/14/2024 Telephone [facility] [address] [place] [address] Oralia Palomino MD Chart Prep 08/13/2024 Telephone [facility] [address] [place] [address] Soumya Mcgrath RN Care Coordination ([facility] initial assessment/ enrollment) 08/13/2024 Travel 08/10/2024 Patient Outreach [facility] [address] [place] [address] Oralia Palomino MD Care Coordination (Outreach) 07/30/2024 Orders Only [facility] [address] [place] [address] Zachery Epstein MD 07/18/2024 Patient Outreach [facility] [address] [place] [address] Oralia Palomino MD Care Coordination (Outreach) 07/12/2024 Patient Outreach [facility] [address] [place] [address] Oralia Palomino MD Care Coordination (Outreach) 07/05/2024 Patient Outreach [facility] [address] [place] [address] Oralia Palomino MD Care Coordination (Outreach) 07/03/2024 10:00 AM EST Office Visit [facility] [address] [place] [address] Oralia Palomino MD Psoriasiform dermatitis (Primary Dx); Essential hypertension; Primary insomnia; Smoking; Hepatocellular carcinoma ([facility]/HCC) 07/03/2024 Travel 06/21/2024 Patient Outreach [facility] [address] [place] [address] Oralia Palomino MD Care Coordination (Outreach) 06/19/2024 Patient Outreach [facility] [address] [place] [address] Oralia Palomino MD Care Coordination (Outreach) 06/19/2024 Patient Outreach [facility] [address] [place] [phone] Oralia Palomino MD Care Coordination (Outreach) 06/19/2024 Orders Only [facility] [address] [place] [phone] Zachery Epstein MD 05/29/2024 Telephone [facility] [address] [place] [address] Oralia Palomino MD 05/29/2024 Telephone [facility] [address] [place] [address] Oralia Palomino MD Medication Question 05/28/2024 Refill [facility] [address] [place] [address] Oralia Palomino MD Insomnia, unspecified type from Last 3 Months Immunizations Name Administration Dates Next Due Influenza injectable quadrivalent preservative f ree 07/30/2023 Influenza, seasonal, injectable, preservative fr ee 04/25/2024 Moderna Covid-19 Vaccine 12+ 11/13/2020 Pfizer Covid-19 Vaccine 12+ 04/25/2024, Pneumococcal Polysaccharide PPSV23 12/29/2012 Tdap 05/09/2017,08/01/2011 Family History Medical History Relation Name Comments Diabetes Mother Relation Name Status Comments Mother Social History Tobacco Use Types Packs/Day Years Used Date Smoking Tobacco: Every Day Cigarettes 1 40 Started: 07/1983; Last attempted to quit: 07/2023 Passive Smoke Exposure: Past Smokeless Tobacco: Former Quit: 07/2023 Tobacco Cessation:Ready to Q uit: Not Asked; Counseling Given: Not Answered Comments:Had recently picked up smoking again. Has [...] Orientation Straight 02/03/2023 1: 44 PM EDT Last Filed Vital Signs Vital Sign Reading [...] Mass Index 39.43 08/15/2024 9:54 AM EST Plan of Treatment Upcoming Encounters Date Type Department Care Team (Late st Contact Info) Description 09/26/2024 11:15 AM EST Office Visit [facility] [address] [place] [address] Oralia Palomino MD [address] [place] [address] 12/05/2024 2:00 PM EDT Office Visit [facility] OPTOMETRY [address] [place] [address] DeondreGretchen durham, OD [address] [place] [address] Health Maintenance Due Date Last Done Comments CT Colonography 1969 Colonoscopy 1969 Colorectal Cancer Screening 1969 Dental Oral Exam 1969 Dental Prophylaxis 1969 Dental X-Ray: Bitewings 1969 Dental X-Ray: Full Mouth 1969 FIT DNA/Cologuard 1969 FIT 1969 FOBT 1969 HIV Screening 1969 Sigmoidoscopy 1969 Diabetes: Foot Exam 1979 Alcohol/Substance Use Screening 1981 Diabetes: Urine Protein Screening 1988 Hepatitis A Vaccines (1 of 2 - Risk 2-dose series) 1988 Hepatitis B Vaccines (1 of 3 - 19+ 3-dose series) 1988 Pneumococcal Vaccine: Pediatrics (0 to 5 Years) and At-Risk Patients (6 to 64 Years) (2 of 2 - PCV) 12/29/2013 12/29/2012 Lung Cancer Screening 2019 Zoster Vaccines (1 of 2) 2019 Depression Screening 07/28/2023 07/28/2022, 07/28/20 22 Lipid Panel 08/04/2023 08/04/2022 SDOH Screening 08/24/2024 08/24/2023 Diabetes: Hemoglobin A1C 11/13/2024 025, 04/25/2024, 11/24/2023, Additional history exists Tobacco Screening 08/15/2025 08/15/2024 Eye Exam 09/13/2025 09/13/2023 DTaP/Tdap/Td Vaccines (3 - Td or Tdap) 05/09/2027 05/09/2017, 08/01/2011 RSV Patients and Patients Aged 60 years or older (1 - 1-dose 75+ series) 2044 COVID-19 Vaccine Completed 04/25/2024, 04/2021, 12/14/2020, Additional history exists Influenza Vaccine Completed 04/25/2024, 07/30/2023 HIB Vaccines Aged Out No longer eligi ble based on patient's age to complete this topic HPV Vaccines Aged Out No longer eligi ble based on patient's age to complete this topic IPV Vaccines Aged Out No longer eligi ble based on patient's age to complete this topic Meningococcal Vaccine Aged Out No zaria noemi eligible based on patient's age to complete this topic RSV under 20 months Aged Out No longe r eligible based on patient's age to complete this topic Rotavirus Vaccines Aged Out No longer eligible based on patient's age to complete this topic Procedures Procedure Name Priority Date/Time Associated Diagnosis Comments COMPREHENSIVE METABOLIC PANEL Routine 08/27/2024 10:13 AM EST Essential hypertension POCT GLYCATED HEMOGLOBIN, TOTAL Routine 08/15/2024 10:36 AM EST Type 2 diabetes mellitus with diabetic neuropathy, with long-term current use of insulin ([facility]) POCT GLUCOSE Routine 08/15/2024 10:36 AM EST Type 2 diabetes mellitus with diabetic neuropathy, with long-term current use of insulin (CMS/[facility]) BASIC METABOLIC PANEL Routine 08/15/2024 10:27 AM EST Type 2 diabetes mellitus with diabetic neuropathy, with long-term current use of insulin (CMS/[facility]) TRANSTHORACIC ECHO (TTE) COMPLETE Routine 07/30/2024 2:[address] ABDOMEN PELVIS W CONTRAST Routine 07/30/2024 10:[address] ABDOMEN PELVIS W CONTRAST Routine 07/30/2024 10:[address] ABDOMEN PELVIS W CONTRAST Routine 06/18/2024 9:12 AM EST LIPID PANEL, STANDARD Routine 08/04/2022 9:49 AM EST Essential hypertension from Last 3 Months or Most Recently Relevant to Health Maintenance Results * (ABNORMAL) Comprehensive Metabolic Panel (08/27/2024 10:13 AM EST) Sodium 132(L) 135 - 145 mmol/L [facility] Potassium 5.0 3.3 - 5.1 mmol/L [facility] Chloride 97 96 - 108 mmol/L [facility] Carbon Dioxide 32(H) 22 - 29 mmol/L [facility] Anion Gap 8(L) 12 - 20 [facility] Urea Nitrogen (BUN) 12 9 - 16 mg/dL [facility] Creatinine, Serum 0.75 0.5 - 1.4 mg/dL [facility] Estimated Glomerular Filt Rate >60 [facility] Comment:Chronic Kidney Disea se: Estimated GFR < 60 mL/min/1.23m9Nslqeq Kidney Disease: Estimated GFR < 15 mL/min/1.73m2 Glucose 210(H) 60 - 115 mg/dL [facility] Calcium 9.0 8.4 - 10.2 mg/dL [facility] Bilirubin, Total 0.3 0.0 - 1.0 mg/dL [facility] Aspartate Amino Transferase 37 5 - 37 U/L [facility] Alanine Aminotransferase 20 0 - 40 U/L [facility] Total Protein 8.2(H) 6.5 - 8.0 g/dL [facility] Albumin Level 3.4(L) 3.5 - 5.0 g/dL [facility] Alkaline Phosphatase 94 39 - 117 U/L [facility] Blood Venous blood specimen / Unknown 08/27/2024 10:13 AM EST 08/27/2024 2:21 PM EST Oralia Palomino MD LAB BLOOD ORDERABLES Final Result [facility] [address] [place] [phone] * (ABNORMAL) POCT HGB A1C (08/15/2024 10:36 AM EST) Pathologist [facility] Hemoglobin A1C 8.4(A) 4.0 - 6.0 % QC Media Lot # [id number] Lot# Expiration Date [id number] Blood 08/15/2024 10:3 6 AM EST Oralia Palomino MD POINT OF CARE TEST ENTER/ED IT ORDERABLES Final Result * (ABNORMAL) POCT Glucose (08/15/2024 10:36 AM EST) Pathologist [facility] Glucose Blood, POC 260(A) 60 - 200 mg/dL [employer] Lot # [id number] Comment:random Lot# Expiration Date [id number] Blood Capillary blood specimen / Unknown 08/15/2024 10:36 AM EST Oralia Palomino MD POINT OF CARE TEST ENTER/ED IT ORDERABLES Final Result * (ABNORMAL) Basic Metabolic Panel (08/15/2024 10:27 AM EST) Pathologist [facility] Sodium 134(L) 135 - 145 mmol/L [facility] Potassium 5.0 3.3 - 5.1 mmol/L [facility] Chloride 97 96 - 108 mmol/L [facility] Carbon Dioxide 31(H) 22 - 29 mmol/L [facility] Anion Gap 11(L) 12 - 20 [facility] Urea Nitrogen (BUN) 12 9 - 16 mg/dL [facility] Creatinine, Serum 0.77 0.5 - 1.4 mg/dL [facility] Estimated Glomerular Filt Rate >60 [facility] Comment:Chronic Kidney Disea se: Estimated GFR < 60 mL/min/1.56f2[place] Kidney Disease: Estimated GFR < 15 mL/min/1.73m2 Glucose 213(H) 60 - 115 mg/dL [facility] Calcium 9.6 8.4 - 10.2 mg/dL [facility] Blood Venous blood specimen / Unknown 08/15/2024 10:27 AM EST 08/15/2024 2:20 PM EST Oralia Palomino MD LAB BLOOD ORDERABLES Final Result [facility] [address] [place] [address] [phone] * Transthoracic echo (TTE) complete (07/30/2024 2:20 PM EST) Historical Provider CV ECHO PROCEDURES Final Result * CT Abdomen Pelvis w/ Contrast (07/30/2024 10:24 AM EST) Only the most recent of3 resultswithin the time period is included. Anatomical Region Laterality Modality Body, Pelvis, Abdomen Computed T omography Historical Provider IMG CT PROCEDURES Final R esult * (ABNORMAL) Lipid Panel, Standard (08/04/2022 9:49 AM EST) Cholesterol, Total 193 <200 mg/dL [facility] HDL Cholesterol 57 > OR = 40 mg/dL [facility] Triglycerides 68 <150 mg/dL [facility] LDL Cholesterol 120(H) mg/dL (calc) [facility] Comment: Reference range: <100 Desirable range <100 mg/dL for primary prevention; ?? <70 mg/dL for patients with CHD or diabetic patients with > or = 2 CHD risk factors. LDL-C is now calculated using the Sohan calculation, which is a validated novel method providing better accuracy than the Friedewald equation in the estimation of LDL-C. Lon MAN et al. JOSE. 2013;310(19): 9355-7236 (http://education.LawBite.Boardganics/faq/FEP198) Chol/HDLC Ratio 3.4 <5.0 (calc) [facility] Non-HDL Cholesterol 136(H) <130 mg/dL (calc) [facility] Comment: For patients with diabetes plus 1 major ASCVD risk factor, treating to a non-HDL-C goal of <100 mg/dL (LDL-C of <70 mg/dL) is considered a therapeutic option. Blood Venous blood specimen / Unknown 08/04/2022 9:49 AM EST 08/04/2022 9:49 AM EST Narrative [facility] - 08/04/2022 9:31 PM EST FASTING:YES FASTING: YES us Oralia Palomino MD LAB BLOOD ORDERABLES Final Result [facility] [address], [place] [address] [facility] [facility] [address] [facility], (N[address]) [place] [address] from Last 3 Months or Most Recently Relevant to Health Maintenance Insurance [facility] C3 DENTAL-[facility] MEDICAID STAND ADULT Care Teams Tire Buster Relationship Specialty Start Date End Date Oralia Palomino MD [address] [place] [address] PCP - General Internal Medicine 10/04/18
--- OUTSIDE RECORDS SUMMARY | 2024-08-27 14:50 | XMS_ITS | Encounter Summary ---
Author Organization [employer] Address [address] [facility] [address] [place] [address] Care Team Providers Care Mirror Polisher Name Role Phone Oralia Palomino MD Primary Care Provider [phone] Reason for Visit * Reason Onset Date Comments Med Refill 12/29/2023 Encounter Details Date Type Department Care Team (Late st Contact Info) Description 12/29/2023 Telephone [facility] [address] [place] [address] Oralia Palomino MD [address] [place], [place] [phone] Med Refill Social History Tobacco Use Types Packs/Day Years [...] encounter Miscellaneous Notes * Telephone Encounter - Wing Violet RN - 12/29/2023 2:27 PM EDT Tc to pt to inquire for more information about silvadene cream refill request. Unable to reach pt, left message for pt to call back. * Telephone Encounter - Basilia Noriega - 12/29/2023 9:30 AM EDT TC from pt requesting medication refill. Medications needing refill : silver sulfADIAZINE (Silvadene) 1 % cream To be sent to: [facility]/pharmacy [address] [place] [phone] [place] [address] documented in this encounter Plan of Treatment Upcoming Encounters Date Type Department Care Team (Late st Contact Info) Description 09/26/2024 11:15 AM EST Office Visit [facility] [address] [place] [address] Oralia Palomino MD [address] [place] [address] 12/05/2024 2:00 PM EDT Office Visit [facility] [address] [place] [address] Gretchen Mendosa, OD [address] [place] [address] documented as of this encounter Visit Diagnoses Not on filedocumented in this encounter Additional Health Concerns Assessment Noted Time PHQ-9 Depression Total Score: 0 07/28/20 22 9:44 AM EST documented as of this encounter Care Teams Mirror Polisher Relationship Specialty Start Date End Date Oralia Palomino MD [address] [place] [address] PCP - General Internal Medicine 10/04/18 documented as of this encounter
--- OUTSIDE RECORDS SUMMARY | 2024-08-27 14:50 | XMS_ITS | Encounter Summary ---
Author Organization [employer] Address [address] [facility] [address] [place] [address] Care Team Providers Care Career Law Clerk Name Role Phone Oralia Palomino MD Primary Care Provider [phone] Reason for Visit * Reason Comments Med Refill Encounter Details Date Type Department Care Team ([facility] st Contact Info) Description 01/01/2024 Refill [facility] [address] [place] [address] Oralia Palomino MD [address] [place] [address] Tinea corporis Social History Tobacco Use Types Packs/Day Years [...] 09/26/2024 11:15 AM EST Office Visit [facility] [address] [place] [address] Oralia Palomino MD [address] [place] [address] 12/05/2024 2:00 PM EDT Office Visit [facility] OPTOMETRY [address] [place] [address] Deondre, Gretchen, OD [address] [place] [address] documented as of this encounter Visit Diagnoses Diagnosis Tinea corporis Dermatophytosis of the body documented in this encounter Additional Health Concerns Assessment Noted Time PHQ-9 Depression Total Score: 0 07/28/20 22 9:44 AM EST documented as of this encounter Care Teams Career Law Clerk Relationship Specialty Start Date End Date Oralia Palomino MD [address] [place] [address] PCP - General Internal Medicine 10/04/18 documented as of this encounter
--- OUTSIDE RECORDS SUMMARY | 2024-08-27 14:50 | XMS_ITS | Encounter Summary ---
Author Organization [employer] Address [address] [facility] 7t [place] [address] Care Team Providers Care Site Leasing Agent Name Role Phone Oralia Palomino MD Primary Care Provider [phone] Reason for Visit * Reason Comments Med Refill Encounter Details Date Type Department Care Team ([facility] st Contact Info) Description 01/03/2024 Refill [facility] [address] [place] [address] Oralia Palomino MD [address] [place] [address] Tinea corporis Social History Tobacco Use Types [...] Description 09/26/2024 11:15 AM EST Office Visit [facility] [address] [place] [address] Oralia Palomino MD [address] [place] [address] 12/05/2024 2:00 PM EDT Office Visit [facility] OPT[facility] [address] [place] [address] Deondre, Gretchen, OD [address] [place] [address] documented as of this encounter Visit Diagnoses Diagnosis Tinea corporis Dermatophytosis of the body documented in this encounter Additional Health Concerns Assessment Noted Time PHQ-9 Depression Total Score: 0 07/28/20 22 9:44 AM EST documented as of this encounter Care Teams Site Leasing Agent Relationship Specialty Start Date End Date Oralia Palomino MD [address] [place] [address] PCP - General Internal Medicine 10/04/18 documented as of this encounter
--- OUTSIDE RECORDS SUMMARY | 2024-08-27 14:51 | XMS_ITS | Encounter Summary ---
Author Organization [employer] [facility] Address [address] [facility] 7t [place] [address] Care Team Providers Care Hydrochloric Area Supervisor Name Role Phone Oralia Palomino MD Primary Care Provider +1- [phone] Encounter Details Date Type Department Care Team (Late st Contact Info) Description 11/17/2023 Orders Only [facility] [address] [place] [address] Provider, MD Zachery Social History Tobacco Use Types Packs/Day Years Used Date Smoking Tobacco: Former Cigarettes 1 40 1 09/1982 - 07/2023 Passive Smoke Exposure: Past Smokeless Tobacco: Former Quit: 07/2023 Depression Answer Date Recorded Patient Health Questionnaire-9 [...] [facility] [address] [place], [place] [phone] Oralia Palomino MD [address] [place], [place] [phone] 12/05/2024 2:00 PM EDT Office Visit [facility] OPTOMETRY [address] [place], [place] [phone] Deondre, Gretchen, OD [address] [place] [address] documented as of this encounter Procedures Procedure Name Priority Date/Time Associated Diagnosis Comments XR CHOLANGIOGRAM INTRAOPERATIVE Routine 11/12/2023 2:24 PM EDT documented in this encounter Results * XR Cholangiogram Intraoperative (11/12/2023 2:24 PM EDT) Anatomical Region Laterality Modality Bile duct Radiographic Kera ging Historical Provider MD REED XR PROCEDURES Final R esult documented in this encounter Visit Diagnoses Not on filedocumented in this encounter Additional Health Concerns Assessment Noted Time PHQ-9 Depression Total Score: 0 07/28/20 22 9:44 AM EST documented as of this encounter Care Teams Hydrochloric Area Supervisor Relationship Specialty Start Date End Date Oralia Palomino MD [address] [place], [place] [phone] PCP - General Internal Medicine 10/04/18 documented as of this encounter
--- OUTSIDE RECORDS SUMMARY | 2024-08-27 14:51 | XMS_ITS | Encounter Summary ---
Author Organization [employer] Address [address] [facility] [address] 7[address] [place] [address] Care Team Providers Care Hr Director Name Role Phone Oralia Palomino MD Primary Care Provider +1- [phone] Encounter Details Date Type Department Care Team (Late st Contact Info) Description 06/19/2024 Orders Only [facility] CH[facility] MED & PEDS [address] [place] [address] Provider, MD Zachery Social History Tobacco Use [...] 11:15 AM EST Office Visit [facility] CHC MED & PEDS [address] [place] [address] Oralia Palomino MD [address] [place] [address] 12/05/2024 2:00 PM EDT Office Visit [facility] OPTOMETRY [address] [place], [place] [phone] Deondre, Gretchen, OD [address] [place] [address] documented as of this encounter Procedures Procedure Name Priority Date/Time Associated Diagnosis Comments CT ABDOMEN PELVIS W CONTRAST Routine 06/18/2024 9:12 AM EST documented in this encounter Results * CT Abdomen Pelvis w/ Contrast (06/18/2024 9:12 AM EST) Anatomical Region Laterality Modality Body, Pelvis, Abdomen Computed T omography Historical Provider MD REED CT PROCEDURES Final R esult documented in this encounter Visit Diagnoses Not on filedocumented in this encounter Additional Health Concerns Assessment Noted Time PHQ-9 Depression Total Score: 0 07/28/20 22 9:44 AM EST documented as of this encounter Care Teams Hr Director Relationship Specialty Start Date End Date Oralia Palomino MD [address] [place] [address] PCP - General Internal Medicine 10/04/18 documented as of this encounter
--- OUTSIDE RECORDS SUMMARY | 2024-08-27 14:51 | XMS_ITS | Clinical Summary ---
Author Organization [facility] Address [address] [place] [address] Care Team Providers Care Quality Assurance Assistant Name Role Phone Unavailable Primary Care Provider Unavailabl e Source Comments PLEASE NOTE, if this patient is a minor, it may be UNLAWFUL to discuss sensitive information that is contained in these records (such as FAMILY PLANNING, MENTAL HEALTH or SUBSTANCE ABUSE) with the minor patient's parent or other person without the patient's specific authorization.[facility] Social History Tobacco Use Types Packs/Day Years Used Date Smoking Tobacco: Never Assessed Social Connections Answer Date Recorded Social Connections and Isolation 0 03/30/2021 Financial Resource Strain Answer Date R ecorded Financial Resource Strain 0 2020 Stress Answer Date Recorded Stress 0 03/30/2021 Physical Activity Answer Date Recorded Physical Activity 0 03/30/2021 Food Insecurity Answer Date Recorded Food 0 03/30/2021 Transportation Needs Answer Date Record ed Transportation 0 03/30/2021 Housing Stability Answer Date Recorded Housing 0 03/30/2021 Safety and Environment Answer Date Yakov rded Safety 0 03/30/2021 Utilities Answer Date Recorded Utilities 0 03/30/2021 Employment Answer Date Recorded Employment 0 03/30/2021 Sex and Gender Information Value Date Recorded Sex Assigned at Not on file Legal Sex Male 10:42 AM PDT Gender Identity Not on file Sexual Orientation Not on file Plan of Treatment Not on file Insurance [employer] Advance Directives Documents on File Type Date Recorded 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
--- OUTSIDE RECORDS SUMMARY | 2024-08-27 14:51 | XMS_ITS | Encounter Summary ---
Author Organization [employer] [facility] Address [address] [place] [address] Care Team Providers Care Cloth Tester Quality Name Role Phone Oralia Palomino MD Primary Care Provider [phone] -[phone] Encounter Details Date Type Department Care Team (Late st Contact Info) Description 05/02/2024 12:54 PM EDT Hospital Encounter TH HISTORIC ENCOUNTERS EASTERN CONVERSION ONLY Social History Tobacco Use Types Packs/Day Years [...] your loved ones. For example, child care sitter or elderly care for an older adult? [...] Sign Reading Time Taken Comments Blood Pressure - - Pulse - - Temperature - - Respiratory Rate - - Oxygen Saturation - - Inhaled Oxygen Concentration - - Weight 133 kg (293 lb 3.4 oz) 05/02/2024 1:10 PM EDT Height 188 cm (6' 2 ) 04/11/2024 1:05 PM EDT Body Mass Index 37.65 04/19/2024 1:38 PM EDT documented in this encounter Progress Notes * Subramony Sruthi-MD Oziel - 05/02/2024 1:00 PM EDT Patient presented with a perianal cyst. Will need antibiotics, will send in Keflex. Also needs a surgical evaluation, possible excision, will send a referral to Dr. Crisostomo * Historical, Notes Results - 05/02/2024 1:00 PM EDT 1315: PT arrives today for cycle 8 of bevacizumab and tecentriq. PT reports he noticed a cyst growing for 2 days next to his anal orifice. PT sts it is red, swollen and about golf ball size. Reportedto Dr. Ga who sts he will be sending in abx to pharmacy, as well as surgical referral to Dr. Crisostomo per PT request. PT also sts the betamethasone cream brings mild relief to rash on all four extremit ies. PT sts his eyes are more blurry as well, believes he needs new glasses as his are 2 yrs old, Dr. Ga made aware of this as well. PT reports he received his flu and covid shot last week and has mild fatigue ever since, otherwise stable assessment. Port accessed without diff, negative blood return after multiple flushed and position changes. Reported to Dr. Ga and Dr. Lopez for cathflow order and order placed. PT given water and warm blanket, denies concerns. 1345: Cathflo instilled into port. PT denies concerns, watching tv, call amezquita in reach. 1425: Attempted to obtained blood return from port with cathflo, no BR at this time, cathflo continues to instill in port. PIV inserted at this time, fluids initiated. 1445: Tencetriq infusion initiated through PIV. PT denies concerns, given crackers, watching tv, call amezquita in reach. 1525: Tencentriq infusion completed without concern. Zirabev infusion initiated. No BR noted yet from port, cathflo remains instilled. PT denies concerns, call amezquita in reach. 1630: Zirabev infusion completed without concern. PIV flushed per protocol and removed, tip in tact, dressing applied. Port still not having blood return. Reported to Dr. Ga who sts PT will need tohave dye study completed for verification. PT made aware and verbalized understanding. As much cathflo as possible removed from port line and clamped. Port deaccessed and dressing applied. PT provided with future apt reminders via calendar, denies other concerns, left unit, stable at D/C. documented in this encounter Plan of Treatment Upcoming Encounters Date Type Department Care Team (Late st Contact Info) Description 09/03/2024 9:15 AM EST Consult General Surgery - [place] [address] [phone] Mitchel Crisostomo, DO [address] [address] 09/04/2024 9:00 AM EST Appointment [address] [address] 09/05/2024 10:30 AM EST Office Visit [facility] Hematology Oncology [address] [place] [phone] Adal Goldstein MD [address] [place] [address] 09/05/2024 11:[address] [facility] [address] [place] [phone] 09/05/2024 2:00 PM EST Office Visit Infectious Disease - [place] [address] [phone] Bridgette Corera MD [address] [address] documented as of this encounter Visit Diagnoses Not on filedocumented in this encounter Care Teams Cloth Tester Quality Relationship Specialty Start Date End Date Oralia Palomino MD [address] [place] [address] PCP - General 11/23/23 documented as of this encounter
--- OUTSIDE RECORDS SUMMARY | 2024-08-27 14:51 | XMS_ITS ---
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 Chronic hepatitis C without hepatic coma 024 Type 2 diabetes mellitus wit h diabetic neuropathy, with long-term current use of insulin 11/25/2023 Current Oncology Plans [facility] BCN OP ATEZOLIZUMAB + BEVACIZUMAB (HCC)* Plan Start Date:11/27/2023 Plan Provider:Adal Chandler MD Linked Problems Hepatocellular carcinoma (HC C)Celiac lymphadenopathy Treatment Medications Current Day (Day 1 , Cycle 10 - Planned for 06/13/2024) Next Day (Day 1, Cycle 11 - Planned for 07/04/2024) albuterol (PROVENTIL)atezolizumab (TECENTRIQ) infusionbevacizumab infusionbevacizumab-bvza (ZIRABEV) infusiondiphenhydrAMINE (BENADRYL)EPINEPHrinefamotidine (PF) (PEPCID)hydrocortisone (SOLU-CORTEF) IVmeperidine (DEMEROL) 25 MG/MLSaline Flush 0.9 %sodium chloride (NS) 0.9 %sodium chloride 0.9% bolus (NS) albuterol (PROVENTIL) nebulizer solution 2.5 mgatezolizumab (TECENTRIQ) 1,200 mg in sodium chloride (NS) 0.9 % 250 mL chemo infusionbevacizumab-bvz r (ZIRABEV) 2,000 mg in sodium chloride (NS) 0.9 % 100 mL infusiondiphenhydrAMINE (BENADRYL) injection 50 mgEPINEPHrine (Anaphylaxis) (ADRENALIN) 1 mg/ml (1:1000) inj amp/vial 0.3 mgfamotidine (PEPCID) 20 mg in water for injection, sterile 5 mL Injectionhydrocortisone sodium succinate (Solu-CORTEF) injection (PF) 100 mgmeperidine (DEMEROL) 25 MG/ML injection 25 mgSaline Flush 0.9 % injection 1 Syringesodium chloride 0.9% (NS) infusionsodium chloride 0.9% bolus (NS) 500 mL ALBUTEROL SULFATE (2.5 MG/3ML) 0.083% IN NEBUatezolizumab (TECENTRIQ) 1,200 mg in sodium chloride (NS) 0.9 % 250 mL chemo infusionbevacizumab-bvzr (ZIRABEV) 2,000 mg in sodium chloride (NS) 0.9 % 100 mL infusionDIPHENHYDRAMINE HCL 50 MG/ML IJ SOLNEPINEPHRINE 1 MG/ML INJECTION ORDERABLE (BCN PRLS)FAMOTIDINE (PF) 20 MG/2ML IV SOLNHYDROCORTISONE IV ORDERABLEMEPERIDINE HCL 25 MG/ML IJ SOLNSALINE FLUSH 0.9 % IV SOLNSODIUM CHLORIDE 0.9 % IV BOLUSSODIUM CHLORIDE 0.9 % IV SOLN Past Plans No past plan information found. Radiation Treatments * No radiation treatments are documented for this patient in [facility]. Treatments may have been administered in another system.
--- OUTSIDE RECORDS SUMMARY | 2024-08-27 14:51 | XMS_ITS | Encounter Summary ---
Author Organization [employer] Address [address] [facility] [address] 7[address] [place] [address] Care Team Providers Care Chain Mender Name Role Phone Oralia Palomino MD Primary Care Provider +1- [phone] Encounter Details Date Type Department Care Team (Late st Contact Info) Description 02/24/2024 Orders Only [facility] CH[facility] MED & PEDS [address] [place] [address] Provider, MD Zachery Social History Tobacco Use [...] Description 09/26/2024 11:15 AM EST Office Visit [facility] CH[facility] MED & PEDS [address] [place], [place] [phone] Oralia Palomino MD [address] [place], [place] [phone] 12/05/2024 2:00 PM EDT Office Visit [facility] OPTOMETRY [address] [place] [address] DeondreGretchen, OD [address] [place] [address] documented as of this encounter Procedures Procedure Name Priority Date/Time Associated Diagnosis Comments CT ABDOMEN PELVIS W CONTRAST Routine 02/21/2024 11:[address] CHEST W CONTRAST Routine 02/21/2024 11:39 AM EDT documented in this encounter Results * CT Abdomen Pelvis w/ Contrast (02/21/2024 11:41 AM EDT) Anatomical Region Laterality Modality Body, Pelvis, Abdomen Computed T omography us Historical Provider MD REED CT PROCEDURES Final R esult * CT Chest w/ Contrast (02/21/2024 11:39 AM EDT) Anatomical Region Laterality Modality Body, Chest Computed Tomogra phy us Historical Provider MD REED CT PROCEDURES Final R esult documented in this encounter Visit Diagnoses Not on filedocumented in this encounter Additional Health Concerns Assessment Noted Time PHQ-9 Depression Total Score: 0 07/28/20 9:44 AM EST documented as of this encounter Care Teams Chain Mender Relationship Specialty Start Date End Date Oralia Palomino MD [address] [place] [address] PCP - General Internal Medicine 10/04/18 documented as of this encounter
--- OUTSIDE RECORDS SUMMARY | 2024-08-27 14:51 | XMS_ITS | Encounter Summary ---
Author Organization [facility] Address [address] [place] [address] Care Team Providers Care Environmental Services Project Manager Name Role Phone Oralia Palomino MD Primary Care Provider +1 -[phone] Encounter Details Date Type Department Care Team (Late st Contact Info) Description 05/22/2024 10:14 AM EDT Hospital Encounter TH HISTORIC ENCOUNTERS EASTERN [...] your loved ones. For example, child care teacher or elderly care for an older adult? [...] documented in this encounter Progress Notes * Historical, Notes Results - 05/22/2024 11:00 AM EDT Victor Manuel arrives for port labs today. Patient into restroom - urine sample provided with no issues noted. Port in right chest accessed per protocol with no difficutly with +brisk blood return. Labs drawnand sent along with urine sample. Port flushed and deaccessed per protocol. Patient has next appt in place. Stable upon discharge. documented in this encounter Plan of Treatment Upcoming Encounters Date Type Department Care Team (Late st Contact Info) Description 09/03/2024 9:15 AM EST Consult General Surgery - [place] [address] [phone] Mitchel Crisostomo, [address] [address] 09/04/2024 9:00 AM EST Appointment [facility] Infusion Center [address] [phone] 09/05/2024 10:30 AM EST Office Visit [facility] Hematology Oncology [address] [place] [address] Adal Goldstein MD [address] [place] [address] 09/05/2024 11:00 AM EST Appointment [facility]fusion Center [address] [phone] 09/05/2024 2:00 PM EST Office Visit Infectious Disease - [place] [address] [phone] Bridgette Correa MD [address] [address] documented as of this encounter Visit Diagnoses Not on filedocumented in this encounter Care Teams Environmental Services Project Manager Relationship Specialty Start Date End Date Oralia Palomino MD [address] [place] [address] PCP - General 11/23/23 documented as of this encounter
--- OUTSIDE RECORDS SUMMARY | 2024-08-27 14:51 | XMS_ITS | Encounter Summary ---
Author Organization [employer] Address [address] [facility] 7t [place] [address] Care Team Providers Care Shellfish Weigher Name Role Phone Oralia Palomino MD Primary Care Provider +1- [phone] Reason for Visit * Reason Onset Date Comments Care Coordination 10/31/2023 C3CM f/u call Encounter Details Date Type Department Care Team ([facility] Contact Info) Description 10/31/2023 Telephone [facility] CHC MED & PEDS [address] [place], [place] [phone] Soumya Mcgrath RN [address] [place], [place] Care Coordination (C3CM f/u call) Social History Tobacco Use Types Packs/Day Years Used Date Smoking Tobacco: Former Cigarettes 1 40 1 09/1982 - 07/2023 Smokeless Tobacco: Former Quit: 07/2023 Depression Answer [...] Telephone Encounter - Soumya Mcgrath RN - 10/31/2023 11:55 AM EDT JMAES Mcgrath RN and CHW Solange Sheth placed outbound call to patient. Patient's name, and address confirmed. Patient states is doing well with no recent illnesses or emergency room visits.Pt requesting for refill of ointment. Pt states symptoms resolved but has reappear after running out of medication. Medication request sent to PCP. 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 LVM requesting a return call. CM also gave [facility] urology's number to pt to f/u. Pt also reports he received in hismail an appt date with the GI specialist. Pt denies any concerns at this time. CM informed pt that he will be graduated from the CM program since all goals are met which he agreed. No further questions or concerns. CM reinforced direct contact information or CHW for any additional questions or concerns. Education provided on Walk-In Urgent Care located in [facility] of [facility]. Patient provided with after-hours line for [facility], , which offer night time triage service and option to transfer to commercial construction estimator provider if needed. JAMES discussed with the patient progress made towards established goals. Patient notified is being graduated from the Care Management Program. Patient was educated on how to receive care management services in the future. Patient agrees with the plan and will contact us if any future needs arise. JAMES Mcgrath RN, sent notification to PCP Dr. Grossman to inform that patient has completed C3 Adult Complex Care program with goals partially/fully met at this time. * Telephone Encounter - Soumya Mcgrath RN - 10/31/2023 11:31 AM EDT Pt requesting for refill of ointment. Pt states symptoms resolved but has reappear after running out of medication. 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 LVM requesting a return call. CM also gave [facility] urology's number to pt to f/u. documented in this encounter Plan of Treatment Upcoming Encounters Date Type Department Care Team (Late st Contact Info) Description 09/26/2024 11:15 AM EST Office Visit [facility] CHC MED & PEDS [address] [place] [address] Oralia Palomino MD [address] [place] [address] 12/05/2024 2:00 PM EDT Office Visit [facility] OPTOMETRY [address] [place], [place] [phone] DeondreGretchen, OD [address] [place] [address] documented as of this encounter Visit Diagnoses Diagnosis Foreskin fissure Other specified disorder of penis Candidiasis of genitalia documented in this encounter Additional Health Concerns Assessment Noted Time PHQ-9 Depression Total Score: 0 07/28/20 22 9:44 AM EST documented as of this encounter Care Teams Shellfish Weigher Relationship Specialty Start Date End Date Oralia Palomino MD [address] [place] [address] PCP - General Internal Medicine 3/6/19 documented as of this encounter
--- OUTSIDE RECORDS SUMMARY | 2024-08-27 14:51 | XMS_ITS | Encounter Summary ---
Author Organization [facility] Address [address] [place] [address] Care Team Providers Care Healthcare Risk Control Consultant Name Role Phone Oralia Palomino MD Primary Care Provider +1 [phone] Encounter Details Date Type Department Care Team Description 12/02/2023 Social Work [facility] Oncology Services [address] [place] [address] Bhavani Sorensen, [facility] Social History Tobacco Use Types Packs/Day Years Used Date Smoking Tobacco: Every Day Cigarettes 0.5 Smokeless Tobacco: Never Alcohol Use Standard Drinks/Week Comments Not Currently 0 (1 standard drink = 0.6 oz pur e alcohol) Sex and Gender Information Value Date Recorded Sex Assigned at Male 12/05/2023 3:10 PM EDT Gender Identity Not on file Sexual Orientation Not on file Job Start Date Occupation Industry Not on file Not on file Not on file documented as of this encounter Plan of Treatment Not on file documented as of this encounter Visit Diagnoses Not on filedocumented in this encounter Care Teams Healthcare Risk Control Consultant Relationship Specialty Start Date End Date Oralia Palomino MD [address] [facility] [place] [address] PCP - General Internal Medicine 11/23/23 documented as of this encounter
--- OUTSIDE RECORDS SUMMARY | 2024-08-27 14:51 | XMS_ITS | Encounter Summary ---
Author Organization [employer] Address [address] [facility] 7t [place] [address] Care Team Providers Care County Program Technician Name Role Phone Oralia Palomino MD Primary Care Provider +1- [phone] Reason for Visit * Reason Onset Date Comments Med Refill 01/06/2024 Encounter Details Date Type Department Care Team ([facility] st Contact Info) Description 01/06/2024 Telephone [facility] CHC MED & PEDS [address] [place] [address] Oralia Palomino MD [address] [place] [address] Med Refill Social History Tobacco Use Types [...] encounter Miscellaneous Notes * Telephone Encounter - Kaylen Sheth - 01/06/2024 2:35 PM EDT TC from pt requesting medication refill. Medications needing refill : econazole nitrate 1 % cream To be sent to: [facility]/pharmacy #[id number] [facility] [phone] [place] [address] documented in this encounter Plan of Treatment Upcoming Encounters Date Type Department Care Team (Late st Contact Info) Description 09/26/2024 11:15 AM EST Office Visit [facility] CHC MED & PEDS [address] [place] [address] Oralia Palomino MD [address] [place] [address] 12/05/2024 2:00 PM EDT Office Visit [facility] OPTOMETRY [address] [place] [address] DeondreYonatann, OD [address] [place] [address] documented as of this encounter Visit Diagnoses Not on filedocumented in this encounter Additional Health Concerns Assessment Noted Time PHQ-9 Depression Total Score: 0 07/28/20 9:44 AM EST documented as of this encounter Care Teams County Program Technician Relationship Specialty Start Date End Date Oralia Palomino MD [address] [place] [address] PCP - General Internal Medicine 10/04/18 documented as of this encounter
--- OUTSIDE RECORDS SUMMARY | 2024-08-27 14:51 | XMS_ITS | Encounter Summary ---
Author Organization [facility] Address [address] [place] [address] Care Team Providers Care Major Assembly Inspector Name Role Phone Oralia Palomino MD Primary Care Provider [phone] Encounter Details Date Type Department Care Team Description 12/07/2023 Social Work [facility] [address] [place] [address] Bhavani Sorensen, [facility] Social History Tobacco Use Types Packs/Day Years [...] on filedocumented in this encounter Care Teams Major Assembly Inspector Relationship Specialty Start Date End Date Oralia Palomino MD [address] [facility] [place] [address] PCP - General Internal Medicine 11/23/23 documented as of this encounter
--- OUTSIDE RECORDS SUMMARY | 2024-08-27 14:51 | XMS_ITS | Clinical Summary ---
Author Organization [facility] Address [address] [place] [address] Care Team Providers Care Door Assembler Name Role Phone Oralia Palomino MD Primary Care Provider [phone] [phone] Allergies No known active allergies Medications Medication Sig Dispensed Refills Start Date End Date Status gabapentin (NEURONTIN) 300 MG capsule Take 1 capsule (300 mg total) by mouth 3 (three) times a day. 0 10/17/2023 Active Insulin Lispro, 1 Unit Dial, 100 UNIT/ML SOPN PLEASE SEE ATTACHED FOR DETAILED DIRECTIONS 0 11/16/2023 Active lisinopril-hydroCHL OROthiazide (PRINZIDE,ZESTORETI C) tablet 10-12.5 mg TAKE 1 TABLET BY MOUTH EVERY DAY IN THE MORNING 0 10/01/2023 Active Melatonin 5 MG TABS Take 1 tablet by mouth every night at bedtime. 0 11/24/2023 Active lidocaine-prilocain e (EMLA) cream Apply topically as needed. To [facility] area 1 hour prior to access 30 g 0 12/07/2023 Active Additional Information Patient not taking.Reason: Other (not using), Reported on 03/21/2024 cephalexin (KEFLEX) 500 MG capsule Take 1 capsule (500 mg total) by mouth 4 (four) times a day. 28 capsule 0 05/02/2024 Active Additional Information Patient not taking.Reason: Other (finished rx), Reported on 05/23/2024 betamethasone dipropionate (DIPROSONE) 0.05 % cream Apply topically 2 (two) times a day. 45 g 0 05/02/2024 Active levothyroxine (SYNTHROID) tablet 50 mcg Take 2 tablets (100 mcg total) by mouth every morning on an empty stomach. 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 Chronic hepatitis C without hepatic coma 024 Type 2 diabetes mellitus wit h diabetic neuropathy, with long-term current use of insulin 11/25/2023 Family History Medical History Relation Name Comments Cancer Mother Relation Name Status Comments Mother Social History Tobacco Use Types Packs/Day Years Used Date Smoking Tobacco: Every Day Cigarettes 0.5 Smokeless Tobacco: Never Tobacco Cessation:Ready to Q uit: Not Asked; Counseling Given: Not Answered Alcohol Use Standard Drinks/Week Comments Not Currently 0 (1 standard drink = 0.6 oz pur e alcohol) Sex and Gender Information Value Date Recorded Sex Assigned at Male 12/05/2023 3:10 PM EDT Gender Identity Not on file Sexual Orientation Not on file Job Start Date Occupation Industry Not on file Not on file Not on file Last Filed Vital Signs Vital Sign Reading Time Taken Comments Blood Pressure 115/76 05/23/2024 1:05 PM EDT Pulse 72 05/23/2024 1:05 PM EDT Temperature 36.7 ??C (98 ??F) 05/23/2024 1:05 PM EDT Respiratory Rate 16 05/23/2024 1:05 PM EDT Oxygen Saturation 99% 05/23/2024 1:05 PM EDT Inhaled Oxygen Concentration - - Weight 134.5 kg (296 lb 8.3 oz) 05/23/2024 1:05 PM EDT Height 188 cm (6' 2 ) 04/11/2024 1:05 PM EDT Body Mass Index 38.07 04/11/2024 1:05 PM EDT Plan of Treatment Health Maintenance Due Date Last Done Comments Hepatitis B Vaccines (1 of 3 - 3-dose series) 1969 Depression Screening 1981 BMI Counseling 1987 Preventative Health Evaluation 1987 Tobacco Cessation Counseling 1987 Shingrix-Zoster Vaccine (1 o f 2) 1988 Pneumococcal Vaccine (2 of 2 - PCV) 12/29/2013 12/29/2012 Colon Cancer Screening (Colonoscopy) 2014 COVID-19 Vaccine (3 - Mixed Product risk series) 12/21/2020 11/23/2020, 11/13/2020 Influenza Vaccine (#1) 2024 3, 04/14/2017 DTap / Tdap / Td (3 - Td or Tdap) 05/09/2027 05/09/2017, 08/01/2011 RSV Ped < 20 months Aged Out No longe r eligible based on patient's age to complete this topic Care Teams Door Assembler Relationship Specialty Start Date End Date Oralia Palomino MD [address] [place], [place] [address] [place] [phone] PCP - General Internal Medicine 11/23/23
--- OUTSIDE RECORDS SUMMARY | 2024-08-27 14:51 | XMS_ITS | Encounter Summary ---
Author Organization [employer] Address [address] [facility] [address] [place] [address] Care Team Providers Care Professor Of Philosophy Name Role Phone Oralia Palomino MD Primary Care Provider Encounter Details Date Type Department Care Team ([facility] st Contact Info) Description 05/29/[address] [facility] PEDS [address] [place] [address] Oralia Palomino MD [address] [place] [address] Social History Tobacco Use Types Packs/Day Years [...] Description 09/26/2024 11:15 AM EST Office Visit [facility] [address] [place] [address] Oralia Palomino MD [address] [place] [address] 12/05/2024 2:00 PM EDT Office Visit [facility] OPTOMETRY [address] [place] [address] Deondre, Gretchen, OD [address] [place] [address] documented as of this encounter Visit Diagnoses Not on filedocumented in this encounter Additional Health Concerns Assessment Noted Time PHQ-9 Depression Total Score: 0 07/28/20 9:44 AM EST documented as of this encounter Care Teams Professor Of Philosophy Relationship Specialty Start Date End Date Oralia Palomino MD [address] [place] [address] PCP - General Internal Medicine 10/04/18 documented as of this encounter
--- OUTSIDE RECORDS SUMMARY | 2024-08-27 14:51 | XMS_ITS | Encounter Summary ---
Author Organization [employer] Address [address] [facility] [address] [place] [address] Care Team Providers Care Osha Inspector Name Role Phone Oralia Palomino MD Primary Care Provider Reason for Visit * Reason Onset Date Comments Hospital Follow-up 11/16/2023 Encounter Details Date Type Department Care Team (Late st Contact Info) Description 11/16/2023 Telephone [facility] MEDICINE [address] [place] [address] Oralia Palomino MD [address] [facility] [address] [place], [place] [id number] Hospital Follow-up Social History Tobacco Use Types Packs/Day Years [...] encounter Miscellaneous Notes * Telephone Encounter - Dariela Gallagher - 11/16/2023 12:00 PM EDT Tc from pt requesting a HDF appt. Hospital: [facility] Date of admission: 11/11/23 Discharge date: 11/14/23 Diagnosed: Gallbladder removal surgery Please contact at [phone] documented in this encounter Plan of Treatment Upcoming Encounters Date Type Department Care Team (Late st Contact Info) Description 09/26/2024 11:15 AM EST Office Visit [facility] PEDS [address] [place] [address] Oralia Palomino MD [address] [place] [address] 12/05/2024 2:00 PM EDT Office Visit [facility] OPTOMETRY [address] [place] [address] DeondreGretchen, OD [address] [facility] [place] [address] documented as of this encounter Visit Diagnoses Not on filedocumented in this encounter Additional Health Concerns Assessment Noted Time PHQ-9 Depression Total Score: 0 07/28/20 9:44 AM EST documented as of this encounter Care Teams Osha Inspector Relationship Specialty Start Date End Date Oralia Palomino MD [address] [place] [address] PCP - General Internal Medicine 10/04/18 documented as of this encounter
--- OUTSIDE RECORDS SUMMARY | 2024-08-27 14:51 | XMS_ITS | Encounter Summary ---
Author Organization [employer] [facility] Address [address] [place] [address] Care Team Providers Care Photo Colorer Name Role Phone Oralia Palomino MD Primary Care Provider [phone] Encounter Details Date Type Department Care Team (Late st Contact Info) Description 05/01/2024 9:28 AM EDT Hospital Encounter TH HISTORIC ENCOUNTERS [...] Progress Notes * Historical, Notes Results - 05/01/2024 9:30 AM EDT Victor Manuel arrives for routine labs and urine test prior to treatment tomorrow. He is feeling well, denies any changes. Port accessed easily, but despite multiple flushes, unable to obtain blood return from port. Per patients preference, will draw las peripherally today and plan to instill cath flow tomorrow if needed. Victor Manuel left unit ambulatory. Tomorrows appointment confirmed. documented in this encounter Plan of Treatment Upcoming Encounters Date Type Department Care Team (Late st Contact Info) Description 09/03/2024 9:15 AM EST Consult General Surgery - [place] [address] [phone] Mitchel Crisostomo, [address] [address] 09/04/2024 9:00 AM EST Appointment [facility] [address] [address] 09/05/2024 10:30 AM EST Office Visit [facility] Hematology Oncology [address] [place] [address] Adal Goldstein MD [address] [place] [address] 09/05/2024 11:00 AM EST Appointment [facility] [address] [phone] 09/05/2024 2:00 PM EST Office Visit Infectious Disease - [place] [address] [phone] Bridgette Correa MD [address] [address] documented as of this encounter Visit Diagnoses Not on filedocumented in this encounter Care Teams Photo Colorer Relationship Specialty Start Date End Date Oralia Palomino MD [address] [place] [address] PCP - General 11/23/23 documented as of this encounter
--- OUTSIDE RECORDS SUMMARY | 2024-08-27 14:51 | XMS_ITS | Encounter Summary ---
Author Organization [employer] Address [address] [facility] 7[address] [place] [address] Care Team Providers Care Navy Airspace Officer Name Role Phone Oralia Palomino MD Primary Care Provider [phone] Reason for Visit * Reason Comments Med Refill Encounter Details Date Type Department Care Team ([facility] Contact Info) Description 01/10/2024 Refill [facility] MED [facility] PEDS [address] [place] [address] Oralia Palomino MD [address] [place] [address] Tinea corporis Social History Tobacco Use Types [...] Description 09/26/2024 11:15 AM EST Office Visit [facility] MED [facility] PEDS [address] [place] [address] Oralia Palomino MD [address] [place] [address] 12/05/2024 2:00 PM EDT Office Visit [facility] OPTOMETRY [address] [place] [address] Deondre, Gretchen, OD [address] [place] [address] documented as of this encounter Visit Diagnoses Diagnosis Tinea corporis Dermatophytosis of the body documented in this encounter Additional Health Concerns Assessment Noted Time PHQ-9 Depression Total Score: 0 07/28/20 22 9:44 AM EST documented as of this encounter Care Teams [employer] Airspace Officer Relationship Specialty Start Date End Date Oralia Palomino MD [address] [place] [address] PCP - General Internal Medicine 10/04/18 documented as of this encounter
--- OUTSIDE RECORDS SUMMARY | 2024-08-27 14:51 | XMS_ITS | Encounter Summary ---
Author Organization [employer] Address [address] [place] [address] Care Team Providers Care Drying Tunnel Operator Name Role Phone Oralia Palomino MD Primary Care Provider [phone] [phone] Reason for Visit * Reason Comments Follow-up Hospital follow up Encounter Details Date Type Department Care Team (Latest Contact Info) Description 07/04/2024 1:00 PM EST Office Visit [facility] Hematology Oncology [address] [place] [phone] Adal Goldstein MD [address] [place] [address] Hepatocellular carcinoma (CMS/HCC) (Primary Dx); Chronic hepatitis C without hepatic coma (CMS/HCC); Cellulitis of scrotum; 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 Prior AFP values reviewed During hospitalization in July 2024, AST decreased to 862, continued biochemical response CHIEF COMPLAINT: Chief Complaint Patient presents with Follow-up Hospital follow up Hepatocellular carcinoma-stage IV Regimen #1-11/2023-Tecentriq plus Avastin --9 cycles completed before [facility] go live Started on cycle #10 with this [facility] IDENTIFIER:Victor Manuel Cole is a 54 y.o. male. HPI: The patient returns for follow up of For details of initial diagnosis and follow up until JUN 01, 2024- please refer to notes from prior [facility] EMR last note dated 04/10/2024 The patient returns for follow up of hepatocellular carcinoma Patient returns for 6-week follow-up and cycle #10 of treatment. Patient had progressive skin rash, erythema and pain in the scrotal area and was admitted to hospital for treatment of cellulitis. He was initially treated with IV antibiotics, and thereafter switched over to amoxicillin and Bactrim p.o. He returned to the ER 2 days later, and was found to have edema, likely secondary to losartan that was discontinued. Today patient reports that he has 1 more day of antibiotic to complete but the cellulitic area has improved significantly and feels normal. He declines an examination. His weight has been stable. Denies any fevers or chills. Remains active, continues on tobacco use. Due for restaging imaging, will order, will [...] and bevacizumab. First treatment was on 12/07/2023. 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 Patient presented to [facility] ER on 11/10, with symptoms of abdominal [...] restaging with lab work and clinical evaluation. ROS: GENERAL: No malaise, significant weight loss [...] Sister Other (Other: skin ca) Father's side No current facility-administered medications for this visit. Current Outpatient Medications: levothyroxine (SYNTHROID, LEVOTHROID) 50 mcg tablet, Take 1 tablet (50 mcg total) by mouth 1 (one) time each day before breakfast., Disp: 90 each, Rfl: 1 Facility-Administered Medications Ordered in Other Visits: acetaminophen (TYLENOL) tablet 650 mg, 650 mg, oral, q8h PRN, Vitaliy Cantu MD albuterol 2.5 mg /3 mL (0.083 %) nebulizer solution 2.5 mg, 2.5 mg, nebulization, q4h PRN, Vitaliy Buitrago MD alteplase (CATHFLO ACTIVASE) injection 2 mg, 2 mg, intra-catheter, Once, Ruddy Carrero MD aspirin EC tablet 81 mg, 81 mg, oral, Daily, Vitaliy Cantu MD, 81 mg at 08/01/24 0851 dextrose (D50W) 50% injection 12.5 g, 12.5 g, intravenous, q15 min PRN, Vitaliy Cantu MD dextrose (D50W) 50% injection 25 g, 25 g, intravenous, q15 min PRN, Vitaliy Cantu MD dextrose 15 gram/60 mL oral solution 15 g, 15 g, oral, q15 min PRN, Vitaliy Cantu MD dextrose 15 gram/60 mL oral solution 30 g, 30 g, oral, q15 min PRN, Vitaliy Cantu MD furosemide (LASIX) injection 40 mg, 40 mg, intravenous, BID -, Ruddy Carrero MD, 40 mgat 08/01/24 1715 gabapentin (NEURONTIN) capsule 400 mg, 400 mg, oral, TID, Vitaliy Cantu MD, 400 mg at 08/01/242006 Glucagon HCl (rDNA) injection 1 mg, 1 mg, intramuscular, Once PRN, Vitaliy Cantu MD insulin glargine (LANTUS) injection 10 Units, 10 Units, subcutaneous, q AM, Vitaliy Cantu MD, 10Units at 07/31/24 0837 insulin lispro injection 2-12 Units, 2-12 Units, subcutaneous, TID AC, Vitaliy Cantu MD, 2 Unitsat 08/01/24 1158 levothyroxine (SYNTHROID, LEVOTHROID) tablet 100 mcg, 100 mcg, oral, q AM AC, Vitaliy Cantu MD, 100 mcg at 08/02/24 0608 magnesium hydroxide (MILK OF MAGNESIA) 400 mg/5 mL suspension 30 mL, 30 mL, oral, Daily PRN, Raysa Cantu MD melatonin tablet 6 mg, 6 mg, oral, Nightly, Vitaliy Cantu MD, 6 mg at 08/01/242146 naloxone (NARCAN) injection 0.04 mg, 0.04 mg, intravenous, PRN, Vitaliy Cantu MD nicotine (NICODERM CQ) 21 mg/24 hr patch 1 patch, 1 patch, transdermal, Daily, Vitaliy Cantu MD,1 patch at 08/01/24 0851 ondansetron (PF) (ZOFRAN) injection 4 mg, 4 mg, intravenous, q6h PRN, Vitaliy Cantu MD oxyCODONE (ROXICODONE) immediate release tablet 5 mg, 5 mg, oral, q4h PRN, Vitaliy Cantu MD, 5 mg at 08/02/24 0454 Insert peripheral IV, , , Once AND Maintain IV access, , , Until discontinued AND Saline lock IV, , , Once AND sodium chloride 0.9 % flush 10 mL, 10 mL, intravenous, BID, 10 mL at 08/01/242146 AND sodium chloride 0.9 % flush 10 mL, 10 mL, intravenous, PRN, Vitaliy Cantu MD, 10 mL at 08/01/242007 spironolactone (ALDACTONE) tablet 50 mg, 50 mg, oral, BID with meals, Vitaliy Cantu MD, 50 mg at08/01/24 1715 Allergies Allergen Reactions Lisinopril Angioedema PHYSICAL EXAM: Visit Vitals Smoking Status Every Day APPEARANCE: Alert and in no acute distress EYES: PERRL, conjunctiva pink and sclera are [...] 3, no focal weakness; sensation is normal LABS: Review of Lab results , interpreted Lab Results Component Value Date WBC 8.1 08/02/2024 HGB 11.5 (L) 08/02/2024 HCT 38.9 (L) 08/02/2024 MCV 73.5 (L) 08/02/2024 PLT 208 08/02/2024 Lab Results Component Value Date NA 132 (L) 08/02/2024 K 3.9 08/02/2024 CL 96 08/02/2024 CO2 34 (H) 08/02/2024 GLUCOSE 122 (H) 08/02/2024 BUN 14 08/02/2024 CREATININE 0.73 08/02/2024 CALCIUM 8.6 08/02/2024 PROT 6.6 07/24/2024 ALBUMIN 2.7 (L) 07/24/2024 BILITOT 0.4 07/24/2024 AST 31 07/24/2024 ALT 26 07/24/2024 PHOS 3.6 08/02/2024 MG 1.7 (L) 08/02/2024 ALKPHOS 108 07/24/2024 EGFR 107 08/02/2024 Review of Imaging, interpreted Transthoracic echocardiogram (TTE) complete with PRN contrast, [...] 2. No active pulmonary process. [place] PA ([id number]) -------- FINAL REPORT -------- Dictated By: Kimberley Becerra Dictated Date: 07/30/2024 09:04 ET Assigned Physician: Kimberley Becerra Reviewed and Electronically Signed By: Kimberley Becerra Signed Date: 07/30/2024 09:08 ET Workstation ID: [id number] Transcribed By: Self Edit Transcribed Date: 07/30/2024 [...] femoral-popliteal venous segments of both lower extremities. [id number] -------- FINAL REPORT -------- Dictated By: Kimberley Becerra Dictated Date: 07/30/2024 08:55 ET Assigned Physician: Kimberley Becerra Reviewed and Electronically Signed By: Kimberley Becerra Signed Date: 07/30/2024 08:55 ET Workstation ID: [id number] Transcribed By: Self Edit Transcribed Date: 07/30/2024 [...] by: Foreign Pickens MD on 07/30/2024 05:34:55 Review of External Documentation Tests ordered - IMPRESSION: 1. Hepatocellular carcinoma (CMS/HCC) 2. Chronic hepatitis C without hepatic coma (CMS/HCC) 3. Cellulitis of scrotum 4. 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) PLAN: 54-year-old man with hepatocellular carcinoma, stage IV disease with lymph node involvement #1 systemic therapy-he tolerated first two cycle of Tecentriq/Avastin quite well Side effects reviewed-none currently apart from mild nausea well-controlled with Zofran Monitor closely for any diarrhea, skin rash or arthritis Monitor lab work closely CBC-D, CMP, AFP level plan for restaging imaging CT abdomen/pelvis after 4cycles of treatment, latest restaging imaging reviewed with him, stable disease Imaging studies 06/18 abdomen/pelvis CT scan from hospital, reviewed in detail, stable disease, we will plan another 1 in 3 to 4 months, okay to order after next visit #2 chronic hepatitis C, not on treatment, poor tolerance to antiviral therapy in the past per report #3 jaundice-resolved, without recurrence, most likely related to the cholecystitis episode #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 Patient is in agreement with this plan. Pain Control--no issues Health Care Proxy-- No one Adal Goldstein MD Cc Oralia Palomino MD documented in this encounter Plan of Treatment Upcoming Encounters Date Type Department Care Team (Late st Contact Info) Description 09/03/2024 9:15 AM EST Consult General Surgery - [place] [address] [phone] Mitchel Crisostomo, DO [address] [address] 09/04/2024 9:00 AM EST Appointment [facility] Infusion Center [address] [phone] 09/05/2024 10:30 AM EST Office Visit [facility] Hematology Oncology [address] [place] [address] Adal Goldstein MD [address] [place] [address] 09/05/2024 11:00 AM EST Appointment [facility] Infusion Center [address] [address] 09/05/2024 2:00 PM EST Office Visit Infectious Disease - [place] [address] [phone] Bridgette Correa MD [address] [address] documented as of this encounter Results * (ABNORMAL) Comprehensive metabolic panel (07/24/2024 10:50 AM EST) [facility] Signature Sodium 135 133 - 145 mmol/L LAB CHEMISTRY METHOD 07/24/2024 11:41 AM [facility] Potassium 4.3 3.5 - 5.5 mmol/L LAB CHEMISTRY METHOD 07/24/2024 11:41 AM [facility] Chloride 99 96 - 110 mmol/L LAB CHEMISTRY METHOD 07/24/2024 11:41 AM [facility] CO2 32 21 - 32 mmol/L LAB CHEMISTRY METHOD 07/24/2024 11:41 AM [facility] Anion Gap 4 3 - 11 LAB CHEMISTRY METHOD 07/24/2024 11:41 AM [facility] Glucose 228(H) 70 - 100 mg/dL LAB CHEMISTRY METHOD 07/24/2024 11:41 AM [facility] BUN 15 5 - 25 mg/dL LAB CHEMISTRY METHOD 07/24/2024 11:41 AM [facility] Creatinine 0.73 0.70 - 1.30 mg/dL LAB CHEMISTRY METHOD 07/24/2024 11:41 AM [facility] eGFR 107 >=60 mL/min/1. 73m2 LAB CHEMISTRY METHOD 07/24/2024 11:41 AM [facility] Comment:Calculation based on the??Chronic Kidney Disease Epidemiology Collaboration (CKD-EPI) equation refit??without adjustment for race. BUN/Creatinine Ratio 20.5 LAB CHEMISTRY METHOD 07/24/2024 11:41 AM [facility] Calcium 8.6 8.5 - 10.5 mg/dL LAB CHEMISTRY METHOD 07/24/2024 11:41 AM [facility] AST (SGOT) 31 10 - 42 unit/L LAB CHEMISTRY METHOD 07/24/2024 11:41 AM [facility] ALT (SGPT) 26 10 - 60 unit/L LAB CHEMISTRY METHOD 07/24/2024 11:41 AM [facility] Alkaline Phosphatase 108 42 - 121 unit/L LAB CHEMISTRY METHOD 07/24/2024 11:41 AM [facility] Total Protein 6.6 6.0 - 8.0 g/dL LAB CHEMISTRY METHOD 07/24/2024 11:41 AM EST [facility] Albumin 2.7(L) 3.2 - 5.0 g/dL LAB CHEMISTRY METHOD 07/24/2024 11:41 AM [facility] Total Bilirubin 0.4 0.0 - 1.4 mg/dL LAB CHEMISTRY METHOD 07/24/2024 11:41 AM EST [facility] Blood Blood sample taken from central line / Unknown Existing Catheter / Unknown 07/24/2024 10:50 AM EST 07/24/2024 11:10 AM EST Adal Goldstein MD LAB BLOOD O RDERABLES Performing Organization Address [facility]/ZIP Co de Phone Number [facility] [address] [place] [address], [place] [phone] * (ABNORMAL) Protein and creatinine with ratio, urine (07/24/2024 10:50 AM EST) Protein, Urine 171 mg/dL LAB CHEMISTRY METHOD 07/24/2024 11:35 AM EST [facility] Prot/Creat, Ur 1.43(H) <=0.20 mg/mg creat LAB CHEMISTRY METHOD 07/24/2024 11:35 AM EST [facility] Creatinine, Urine 120.0 mg/dL LAB CHEMISTRY METHOD 07/24/2024 11:35 AM [facility] Urine Urine specimen obtained by clean catch procedure / Unknown Non-blood Collection / Unknown 07/24/2024 10:50 AM EST 07/24/2024 11:10 AM EST Subramyenni Goldstein MD LAB URINE O RDERABLES Performing Organization Address City/[facility]/ZIP Co de Phone Number [facility] [address] [place] [address], [place] [phone] documented in this encounter Visit Diagnoses Diagnosis Hepatocellular carcinoma (CMS/HCC)- Primary Malignant neoplasm of liver, primary Chronic hepatitis C without hepatic coma (CMS/HCC) Cellulitis of scrotum Other inflammatory disorder of male genital organs 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
--- OUTSIDE RECORDS SUMMARY | 2024-08-27 14:51 | XMS_ITS | Encounter Summary ---
Author Organization [employer] Address [address] [facility] 7t [place] [address] Care Team Providers Care Transcript Clerk Name Role Phone Oralia Palomino MD Primary Care Provider [phone]- [phone] Reason for Visit * Reason Comments Med Refill Encounter Details Date Type Department Care Team ([facility] Contact Info) Description 05/28/[address] [facility] [address] [place] [address] Oralia Palomino MD [address] [place] [address] Insomnia, unspecified type Social History Tobacco Use Types Packs/Day Years [...] Description 09/26/2024 11:15 AM EST Office Visit [facility] P[facility] [address] [place] [address] Oralia Palomino MD [address] [place] [address] 12/05/2024 2:00 PM EDT Office Visit [facility] OPTOMETRY [address] [place] [address] Deondre, Gretchen, OD [address] [place] [address] documented as of this encounter Visit Diagnoses Diagnosis Insomnia, unspecified type documented in this encounter Additional Health Concerns Assessment Noted Time PHQ-9 Depression Total Score: 0 07/28/20 22 9:44 AM EST documented as of this encounter Care Teams Transcript Clerk Relationship Specialty Start Date End Date Oralia Palomino MD [address] [place] [address] PCP - General Internal Medicine 10/04/18 documented as of this encounter
--- OUTSIDE RECORDS SUMMARY | 2024-08-27 14:51 | XMS_ITS | Encounter Summary ---
Author Organization [employer] Address [address] [facility] 7t [place] [address] Care Team Providers Care Certified Retinal Angiographer Name Role Phone Oralia Palomino MD Primary Care Provider +1- [phone] Reason for Visit * Reason Comments Med Change Request Encounter Details Date Type Department Care Team ([facility] Contact Info) Description 05/18/2024 Refill [facility] MED [facility] PEDS [address] [place] [address] Oralia Palomino MD [address] [place] [address] Muscle cramps Social History Tobacco Use Types Packs/Day Years [...] Description 09/26/2024 11:15 AM EST Office Visit [facility] MED [facility] PEDS [address] [place] [address] Oralia Palomino MD [address] [place] [address] 12/05/2024 2:00 PM EDT Office Visit [facility] OPTOMETRY [address] [place], [place] [phone] Deondre, Gretchen, OD [address] [place] [address] documented as of this encounter Visit Diagnoses Diagnosis Muscle cramps documented in this encounter Additional Health Concerns Assessment Noted Time PHQ-9 Depression Total Score: 0 07/28/20 22 9:44 AM EST documented as of this encounter Care Teams Certified Retinal Angiographer Relationship Specialty Start Date End Date Oralia Palomino MD [address] [place] [address] PCP - General Internal Medicine 10/04/18 documented as of this encounter
--- OUTSIDE RECORDS SUMMARY | 2024-08-27 14:51 | XMS_ITS | Encounter Summary ---
Author Organization [employer] [facility] Address [address] [place] [address] Care Team Providers Care Electric Meter Tester Name Role Phone Oralia Palomino MD Primary Care Provider +1 -[phone] Encounter Details Date Type Department Care Team (Late st Contact Info) Description 05/23/2024 1:01 PM EDT Hospital Encounter TH HISTORIC ENCOUNTERS [...] care for your loved ones. 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 [...] - Inhaled Oxygen Concentration - - Weight 135 kg (296 lb 8.3 oz) 05/23/2024 1:05 PM EDT Height 188 cm (6' 2 ) 04/11/2024 1:05 PM EDT Body Mass Index 38.07 05/23/2024 8:34 AM EDT documented in this encounter Progress Notes * Historical, Notes Results - 05/23/2024 1:00 PM EDT 1315: PT arrives this afternoon for atezolizumab and Zirabev infusion. PT continues to report pain in anal area r/t abscess. PT sts he finished abx with mild improvement although he is still waiting on a surgical referral for Dr. Crisostomo. Reported to [place] [facility] who sts she will look into this. PT also continues to report constant numbness and tingling to bilateral hands and feet with relief from gabapentin. Otherwise stable assessment. Port accessed without diff, +BR , flushed per protocol and fluids initiated. PT given some snacks, denies other concerns, call amezquita in reach. 1420: Atezolizumab infusion initiated. PT denies concerns, call amezquita in reach. PT requesting letterfrom the doctor for permission to wear sweat pants at work r/t his painful abscess, reported to [place] [facility]. 1505: Atezolizumab infusion completed without concern. Zirabev infusion initiated. PT denies concerns, call amezquita in reach. 1545: Zirabev infusion completed without concern. Port flushed per protocol and deaccessed, dressing applied. PT provided with future apt reminders via calendar, verbalized understanding. PT also provided with letter from [place] [employer] giving him permission to wear sweat pants at work for comfort. Cory also [facility] has sent a referral for PT for Dr. Crisostomo and is working on an appointment for him,PT made aware and verbalized understanding, and very appreciative. Left unit, stable at D/C. documented in this encounter Plan of Treatment Upcoming Encounters Date Type Department Care Team (Late st Contact Info) Description 09/03/2024 9:15 AM EST Consult General Surgery - [place] [address] [place] [phone] Mitchel Crisostomo, [address] [facility] [address] [place] [address] 09/04/2024 9:00 AM EST Appointment [facility] Infusion Center [address] [place] [phone] 09/05/2024 10:30 AM EST Office Visit [facility] Hematology Oncology [address] [place] [phone] Sruthi-Adal Ludwig MD [address] [place] [phone] 09/05/2024 11:00 AM EST Appointment [facility] Infusion Center 271 [facility] [address] [place] [phone] 09/05/2024 2:00 PM EST Office Visit Infectious Disease - [place] [address] [phone] Bridgette Correa MD [address] [address] documented as of this encounter Visit Diagnoses Not on filedocumented in this encounter Care Teams Electric Meter Tester Relationship Specialty Start Date End Date Oralia Palomino MD [address] [place] [address] PCP - General 11/23/23 documented as of this encounter
== END 2024-08-27 10:13 | disposition home or self-care (01) ==
LOC: HO.CHCLDS 10:12
PROVIDERS: Visit Provider Internal Medicine
DX: I10 Essential (primary) hypertension (principal)
CPT/HCPCS: 36415; 80053